=== PATIENT | female | born 1945 | race Caucasian/White ===

== ENCOUNTER 2018-10-04 08:22 | Inpatient (IN) ==
[2018-10-04] MEDS ORDERED: SOLU-MEDROL IV ONE (08:37)
[2018-10-04] MEDS ORDERED: DILAUDID IV ONE (08:39)
[2018-10-04] MEDS ORDERED: ZOFRAN IV ONE (08:39)
[2018-10-04 09:06] LABS: BASO# 0.01 X1000 (0.0-0.2); BASO% 0.1 % (0.0-0.8); EOS# 0.21 X1000 (0.0-0.7); HEMOGLOBIN 11.5 g/dL (12.0-16.0); IMM GRAN# 0.04 X1000 (0.0-0.04); IMM GRAN% 0.4 % (0.0-0.5); LYMPH% 3.8 % (20.5-51.1); MCH 35.9 PG (27-31); MCHC 31.9 g/dL (33-37); MCV 112.5 FL (81-99); MONO# 0.63 X1000 (0.11-0.59); MPV 8.9 FL (7.4-10.4); NEUT# 9.26 X1000 (1.4-6.5); NEUT% 87.7 % (42.2-75.2); PLT 279 X1000 (130-400); RDW 16.2 % (11.5-14.5); WBC 10.55 X1000 (4.8-10.8)
[2018-10-04] MEDS ORDERED: XOPENEX NEB INH ONE ×2 (09:17→15:15)
--- NOTE | 2018-10-04 09:18 | Diag Imaging Result Doc PS360 ---
CHEST-2 VIEWS - 10/04/2018 INDICATION: sob COMPARISON: 07/10/2018 FINDINGS: There is cardiomegaly. There is ill-defined infiltrate throughout the right lung worse in the right lung base. Aside from some chronic linear scarring in the lingula the left lung is fairly clear. No pneumothorax or significant pleural effusion. IMPRESSION: Cardiomegaly. Indeterminate infiltrate throughout the right lung and lung base. Consistent with pneumonia or pulmonary edema. Electronically signed by Jones Segundo 10/04/2018 9:16 AM
[2018-10-04 09:24] LABS: AGAP 7; BUN 15 mg/dL (8-22); CALCIUM 8.9 mg/dL (8.8-10.2); CHLORIDE 98 mmol/L (98-107); COSMO 278; CREATININE 0.9 mg/dL (0.5-0.9); ESTIMATED GFR > 60; GLUCOSE 131 mg/dL (70-104); POTASSIUM 4.7 mmol/L (3.5-5.1); SODIUM 138 mmol/L (136-145); TCO2 33 mmol/L (25-35)
--- NOTE | 2018-10-04 09:27 | PROVIDER DOCUMENTATION ---
HPI-Respiratory General - General Chief Complaint: Shortness of Breath Stated Complaint: SOB, Lung Cancer, exp wheezes Time Seen by Provider: 10/04/18 09:10 Source: patient, family Allergies/Adverse Reactions: Patient Allergies Allergy/AdvReac Type Severity Reaction Status Date / Time naproxen Allergy Intermediate NAUSEA/VOMI Verified 11/01/12 10:08 TING Home Medications: Home Medication List Medication Instructions Recorded Confirmed Last Taken Type Furosemide [Lasix] 40 mg PO DAILY 11/01/12 05/29/17 05/28/17 History 40 Oxycodone/APAP 5 mg/325 mg 1 each PO Q4H PRN PRN #15 tablet 11/01/12 05/29/17 05/28/17 05:30 Rx [Percocet-5] 1 Fluticasone/Salmet 250/50 INH 1 puff INH RTBID 07/06/15 05/29/17 07/03/15 History [Advair 250/50 Diskus] Acetaminophen [Tylenol] 650 mg PO Q6H PRN PRN #0 tablet 07/13/15 05/29/17 05/28/17 19:30 Rx 650 Albuterol 2.5MG/Ipratrop 0.5MG 3 ml INH Q4H PRN PRN #0 neb 07/13/15 05/29/17 05/29/17 05:30 Rx [Duoneb (A & A)] 3 Amitriptyline [Elavil] 50 mg PO QPM@1800 #0 tablet 07/13/15 05/29/17 05/28/17 18:00 Rx 50 Benzonatate [Tessalon] 200 mg PO Q6H PRN PRN #0 capsule 07/13/15 05/29/17 Unknown Rx Lorazepam [Ativan] 1 mg PO BID #0 tablet 07/13/15 05/29/17 05/29/17 05:30 Rx 1 Nicotine Patch [Nicoderm Patch] 21 mg TD DAILY #0 patch.[id number] 07/13/15 05/29/17 05/28/17 05:30 Rx 21 Prednisone 10 mg PO DAILY #7 tablet 07/13/15 05/29/17 05/28/17 05:30 Rx 10 Cyanocobalamin (Vitamin B-12) 1 tab PO DAILY 05/29/17 05/29/17 05/28/17 05:30 History [B-12] 1 Folic Acid 1 tab PO DAILY 05/29/17 05/29/17 05/28/17 05:30 History 1 Potassium 1 tab PO DAILY 05/29/17 05/29/17 05/28/17 05:30 History 1 Sertraline HCl [Zoloft] 1 tab PO DAILY 05/29/17 05/29/17 05/28/17 05:30 History 1 Albuterol 2.5MG/Ipratrop 0.5MG 3 ml INH Q4-6H PRN PRN neb 06/01/17 Unknown Rx [Duoneb (A & A)] Albuterol 2.5MG/Ipratrop 0.5MG 3 ml INH Q4H PRN PRN neb 06/01/17 Unknown Rx [Duoneb (A & A)] Amitriptyline [Elavil] 50 mg PO QPM@1800 tablet 06/01/17 Unknown Rx Benzonatate [Tessalon] 200 mg PO Q6H PRN PRN capsule 06/01/17 Unknown Rx Cyanocobalamin [Vitamin B-12] 1,000 microgm PO DAILY tablet 06/01/17 Unknown Rx Docusate Sodium [Colace] 100 mg PO DAILY capsule 06/01/17 Unknown Rx Folic Acid 1 mg PO DAILY tablet 06/01/17 Unknown Rx Furosemide [Lasix] 40 mg PO DAILY tablet 06/01/17 Unknown Rx Levofloxacin [Levaquin] 750 mg PO DAILY tablet 06/01/17 Unknown Rx Lorazepam [Ativan] 1 mg PO TID tablet 06/01/17 Unknown Rx Nicotine Patch [Nicoderm Patch] 21 mg TD DAILY patch.td24 06/01/17 Unknown Rx [place]-3 Fatty Acids [Fish Oil 1,000 mg PO DAILY capsule 06/01/17 Unknown Rx Concentrate] Polyethylene Glycol 3350 [Miralax] 17 gm PO DAILY powder, packet 06/01/17 Unknown Rx Potassium [Potassium] 1 tab PO DAILY 06/01/17 Unknown Rx Prednisone 10 mg PO DAILY tablet 06/01/17 Unknown Rx Sertraline [Zoloft] 100 mg PO DAILY tablet 06/01/17 Unknown Rx - History of Present Illness-Resp Nature of Presenting Problem: Patient is a 73yo F who presents w/ c/o SOB and wheezing. Patient has COPD and has been having more difficulty breathing for the past 2 weeks. Family reports that patient has R lung cancer for which she sees Dr. Kelley. Also report she has been "battling pneumonia" since June and patient has refused to be admitted for pnuemonia and COPD exacerbation. Family reports she has been taking an antibiotic every other week since June and been on oral steroids. Patient on 3L NC at home. Family reports that last night around 0230, patient was in severe pain in her RUQ from her reported enlarged bile duct and was having more difficulty breathing, so she agreed to be taken to the ED. Also report that patient has been having black stools and was told by a physician in [place] that she was anemic. Quality of Pain: reports: sharp Severity in ED: reports: moderate Onset/Duration: reports: 4-6 hours ago Timing: reports: still present Context: reports: recent URI Exposure: reports: unknown cause Cough Quality/Degree: reports: mild Episode Frequency: frequent episodes Current Respiratory Medication Therapy: Initiated see nurses note, Initiated albuterol/atrovent inhale, Initiated other oral steroid Modifying Factors: improves with: nothing Associated Symptoms: reports: chest pain/soreness, cough, heart racing, hurts to breathe, shortness of breath, wheezing. denies: fever/chills Similar Symptoms Previously?: Yes Recently seen or treated by another doctor?: No Review of Systems - Adult - REVIEW OF SYSTEMS - ADULT ROS:: ROS per family Constitutional: denies: chills, fever Eyes: reports: no symptoms reported Ears, Nose, Mouth & Throat: reports: no symptoms reported Cardiovascular: reports: no symptoms reported Respiratory: reports: cough, dyspnea on exertion, shortness of breath, wheezing Gastrointestinal: reports: abdominal pain (RUQ), other ("dark stools") Genitourinary: reports: no symptoms reported Musculoskeletal: reports: no symptoms reported Integumentary: reports: no symptoms reported Neurological: reports: no symptoms reported Psychiatric: reports: no symptoms reported Endocrine: reports: no symptoms reported Hematologic/Lymphatic: reports: low blood count All Other Systems: Reviewed and Negative Past History - Adult - PAST MEDICAL HISTORY-ADULT Review of Records: reports: Nursing Assessment Review, Medications Reviewed, Social history reviewed & non-contributory. Cardiovascular: reports: other (Cardiomegaly) Respiratory: reports: COPD, cancer Gastrointestinal: reports: other (Enlarged bile duct) - IMMUNIZATION STATUS Childhood Immunizations: See Nurse Assessment Flu Vaccine: See Nurse Assessment - FAMILY HISTORY Family History: reviewed, not pertinent - SOCIAL HISTORY Smoking: cigarettes Provider spent 3-5 mins advising pt. on dangers of tobacco.: Discussed manners to quit use, and f/u contacts for add'l counseling. Physical Exam-General - PHYSICAL EXAM-ADULT Initial Vital Signs Reviewed: Yes - CONSTITUTIONAL General Appearance: appears well, alert, moderate distress - HEAD, EARS, NOSE, MOUTH & THROAT HENMT: normocephalic/atraumatic, moist mucous membranes - RESPIRATORY Respiratory: wheezing (Expiratory wheeze all lung lopez), pain on inspiration - CARDIOVASCULAR Cardiovascular: no gallop, no murmur, tachycardia - SKIN Integumentary: normal color, normal turgor, warm/dry - NEUROLOGIC Neurologic: grossly normal - PSYCHIATRIC Psych/Mental Status: normal mood/affect, normal thought content, normal thought process, oriented x 3 - HEART Score HEART Score: History: Slightly Suspicious HEART Score: ECG: Non-Specific Repolarization Disturbance/LBBB/PM HEART Score: Age: > or = 65 Years HEART Score: Risk Factors for Atherosclerotic Disease: > or = 3 Risk Factors or History of Atherosclerotic Disease HEART Score: Troponin: < or = Normal Limit Total HEART Score:: 5 Progress - PLAN OF CARE/RESULTS Progress/Plan/Lab Results: Vital Signs - 8 hr 10/04/18 08:28 10/04/18 08:29 10/04/18 08:30 Temperature 98.2 F Pulse Rate 136 H 126 H 127 H Respiratory Rate 24 23 23 Blood Pressure 133/84 O2 Sat by Pulse Oximetry 92 L 94 L 10/04/18 08:40 10/04/18 08:50 10/04/18 09:08 Temperature Pulse Rate 123 H 115 H 122 H Respiratory Rate 22 18 21 Blood Pressure O2 Sat by Pulse Oximetry 94 L 93 L 94 L 10/04/18 09:09 10/04/18 09:10 10/04/18 09:20 Temperature Pulse Rate 120 H 120 H 116 H Respiratory Rate 16 18 16 Blood Pressure 119/85 O2 Sat by Pulse Oximetry 92 L 94 L 92 L 10/04/18 09:30 10/04/18 09:32 10/04/18 09:40 Temperature Pulse Rate 118 H 121 H 117 H Respiratory Rate 15 17 18 Blood Pressure 112/76 O2 Sat by Pulse Oximetry 94 L 95 94 L 10/04/18 09:50 10/04/18 10:00 10/04/18 10:02 Temperature Pulse Rate 114 H 116 H 115 H Respiratory Rate 16 19 16 Blood Pressure 108/73 O2 Sat by Pulse Oximetry 93 L 94 L 93 L 10/04/18 10:10 10/04/18 10:50 Temperature Pulse Rate 115 H 94 H Respiratory Rate 21 16 Blood Pressure O2 Sat by Pulse Oximetry 95 94 L Laboratory Results - last 24 hr 10/04/18 10/04/18 10/04/18 08:35 08:35 08:35 WBC 10.55 RBC 3.20 L Hgb 11.5 L Hct 36.0 L MCV 112.5 H MCH 35.9 H MCHC 31.9 L RDW Std Deviation 16.2 H Plt Count 279 MPV 8.9 Immature Gran % (Auto) 0.4 Neut % (Auto) 87.7 H Lymph % (Auto) 3.8 L [place] % (Auto) 6.0 Eos % (Auto) 2.0 Baso % (Auto) 0.1 Immature Gran # (Auto) 0.04 Neut # (Auto) 9.26 H Lymph # (Auto) 0.40 L [place] # (Auto) 0.63 H Eos # (Auto) 0.21 Baso # (Auto) 0.01 Segmented Neutrophils 90 H Band Neutrophils 2 H Lymphocytes 2 L Monocytes 4 Eosinophils 2 Specimen Type Sample Site pH pCO2 pO2 HCO3 Base Excess Oxyhemoglobin ABG O2 Sat (Calculated) ABG O2 Saturation ABG Carboxyhemoglobin ABG Methemoglobin Valdemar Test A-a O2 Difference Total Hemoglobin Lactate Liter Flow Blood Gas Modality FiO2 % Sodium 138 Potassium 4.7 Chloride 98 Carbon Dioxide 33 Anion Gap 7 BUN 15 Creatinine 0.9 Estimated GFR/1.73 m2 > 60 BUN/Creatinine Ratio 17 Glucose 131 H Calculated Osmolality 278 Calcium 8.9 Troponin T < 0.010 Urine Source Urine Color Urine Turbidity Urine pH Ur Specific [place] Urine Protein Ur Glucose (Stick) Ur Ketones (Stick) Urine Blood Urine Nitrite Urine Bilirubin Urobilinogen Dipstick Urine Leukocytes Urine WBC (Auto) Urine RBC (Auto) U Epithel Cells (Auto) Urine Bacteria (Auto) 10/04/18 10/04/18 10:43 10:45 WBC RBC Hgb Hct MCV MCH MCHC RDW Std Deviation Plt Count MPV Immature Gran % (Auto) Neut % (Auto) Lymph % (Auto) [place] % (Auto) Eos % (Auto) Baso % (Auto) Immature Gran # (Auto) Neut # (Auto) Lymph # (Auto) [place] # (Auto) Eos # (Auto) Baso # (Auto) Segmented Neutrophils Band Neutrophils Lymphocytes Monocytes Eosinophils Specimen Type ARTERIAL Sample Site R BRACHIAL pH 7.39 pCO2 56 H* pO2 70 HCO3 30.7 H Base Excess 7.5 H Oxyhemoglobin 94.5 L ABG O2 Sat (Calculated) 14.8 L ABG O2 Saturation 97.7 ABG Carboxyhemoglobin 2.70 H ABG Methemoglobin 0.6 Valdemar Test NO A-a O2 Difference 88.0 Total Hemoglobin 11.1 L Lactate 1.10 Liter Flow 3.0 Blood Gas Modality [place] FiO2 % 32.0 Sodium Potassium Chloride Carbon Dioxide Anion Gap BUN Creatinine Estimated GFR/1.73 m2 BUN/Creatinine Ratio Glucose Calculated Osmolality Calcium Troponin T Urine Source CATH Urine Color YELLOW Urine Turbidity CLEAR Urine pH 7.0 Ur Specific [place] 1.006 Urine Protein NEGATIVE Ur Glucose (Stick) NEGATIVE Ur Ketones (Stick) NEGATIVE Urine Blood SMALL A Urine Nitrite NEGATIVE Urine Bilirubin NEGATIVE Urobilinogen Dipstick NORMAL Urine Leukocytes NEGATIVE Urine WBC (Auto) <10 Urine RBC (Auto) 10-20 A U Epithel Cells (Auto) <10 Urine Bacteria (Auto) NEGATIVE Orders Category Date Time Status Straight Catheterization ORDERED Care 10/04/18 10:34 Active CHEST-2 VIEWS [RAD] Stat Exams 10/04/18 08:37 Completed RIBS ONLY RIGHT [RAD] Stat Exams 10/04/18 08:39 Completed ABG [RESP] Routine Lab 10/04/18 10:45 Completed BASIC METABOLIC PANEL [CHEM] Stat Lab 10/04/18 08:35 Completed BLOOD CULTURE [BLDCUL] Stat Lab 10/04/18 10:26 Results CBC WITH DIFF [HEME] Stat Lab 10/04/18 08:35 Completed TROPONIN T Stat Lab 10/04/18 08:35 Completed UA [URINALYSIS W/POSS RFLX CULT] [URINALYSIS] Stat Lab 10/04/18 10:43 Completed CefTRIAXONE [Rocephin] 2 gm Med 10/04/18 09:35 Discontinued 0.9% Sodium Chloride Inj [Ns] 50 ml IV NOW Hydromorphone [Dilaudid] Med 10/04/18 08:39 Discontinued 0.5 mg IV NOW ONE Levalbuterol Neb [Xopenex Neb] Med 10/04/18 09:17 Discontinued 1.25 mg INH NOW ONE Methylprednisolone Sod Succ [Solu-Medrol] Med 10/04/18 08:37 Discontinued 125 mg IV NOW ONE Ondansetron [Zofran] Med 10/04/18 08:39 Discontinued 4 mg IV NOW ONE Sodium Chloride 0.9% Neb [Ns Neb] Med 10/04/18 09:30 Active 5 ml INH DIRECTED Aerosol Treatments Routine Oth 10/04/18 09:17 Completed Aerosol Treatments Stat Oth 10/04/18 09:17 Completed EKG [EKG] Stat Ther 10/04/18 08:50 Draft Result Diagrams: 10/04/18 08:35 10/04/18 08:35 - REASSESSMENT Reassessment #1 Time Reassessed: 11:00 Status: unchanged - XRAY 1 XRAY: Bilateral XRAY Study: Chest Impression: See EMR Report ([facility] [address] , [address], [place] [address] Department of Imaging Patient: LIBERTY ROJAS Date: 10/04/18MR#: [id number] : 1945DM Status: PRE ERAcct#: [id number] Age/Sex: 73/FRoom/Bed: Loc: ED Ordering Physician: Orlin Daniel MD Family Physician: Merrick Becerril MD Reason for Procedure: sob ___ Signed CHEST-2 VIEWS - 10/04/2018 INDICATION: sob COMPARISON: 07/10/2018 FINDINGS: There is cardiomegaly. There is ill-defined infiltrate throughout the right lung worse in the right lung base. Aside from some chronic linear scarring in the lingula the left lung is fairly clear. No pneumothorax or significant pleural effusion. IMPRESSION: Cardiomegaly. Indeterminate infiltrate throughout the right lung and lung base. Consistent with pneumonia or pulmonary edema. Electronically signed by Jones Segundo 10/04/2018 9:16 AM 10/04/18 0916 Interpreting Physician: Jones Segundo MD Dictated Date/Time: 10/04/18 09 cc: Orlin Daniel MD; Merrick Becerril MD) 2 XRAY: Right XRAY Study: Ribs Impression: See EMR Report ([facility] [address] , [address], [place] [address] Department of Imaging Patient: BRYAN ROJASADM Date: 10/04/18MR#: [id number] : 1945DM Status: PRE ERAcct#: [id number] Age/Sex: 73/FRoom/Bed: Loc: ED Ordering Physician: Orlin Daniel MD Family Physician: Merrick Becerril MD Reason for Procedure: back pain Signed RIBS ONLY RIGHT - 10/04/2018 INDICATION: back pain TECHNIQUE: Two views COMPARISON: 07/10/2018 FINDINGS: The right-sided ribs are intact and normally mineralized. IMPRESSION: Negative exam. Electronically signed by Jones Segundo 10/04/2018 9:24 AM 10/04/18 0924 Interpreting Physician: Jones Segundo MD Dictated Date/Time: 10/04/18922 cc: Orlin Daniel MD; Merrick Becerril MD) - CONSULTS/PCP/HOSPITALIST Notification #1 *Consult/PCP/Hospitalist*: MD Jerrica Time Discussed: 11:25 Reason/Comments: SOB, Pneumonia, COPD Consult Disposition: Admit Departure - Departure Date of Disposition Decision: 10/04/18 Time of Disposition Decision: 11:25 DIAGNOSIS: SOB (shortness of breath) Pneumonia Qualifiers: Pneumonia type: due to unspecified organism Laterality: right Lung location: unspecified part of lung Qualified Code(s): J18.9 - Pneumonia, unspecified organism COPD (chronic obstructive pulmonary disease) Qualifiers: COPD type: unspecified COPD Qualified Code(s): J44.9 - Chronic obstructive pulmonary disease, unspecified Anemia Qualifiers: Anemia type: unspecified type Qualified Code(s): D64.9 - Anemia, unspecified Disposition: ADMITTED INPATIENT 09 Certified Medical Emergency: Emergent Condition: Fair Referrals and Follow-Ups: Merrick Becerril MD [Primary Care Provider] - - Critical Care Note This patient required my direct & personal management of CC.: No Total Time (mins): 36 Critical Care Statement: This patient required my direct personal management to treat or rule out processes, the absence of which, could potentiallly result in sudden, clinically significant life or limb threatening deterioration. Attestation - Physician/ DENISE Attestation Patient care was provided by Advanced Practice Provider:: Yes Advanced Practice Provider:: Yesika Delgadillo Advanced Practice Provider documentation review:: The Mid-level provider documentation, treatment plan and medical decision making was reviewed by the physician who agrees with all treatment and medical decision making by the P. The physician spent face to face time with patient:: No Advanced Practice Provider documentation review:: Supervising physician onsite and consulted in the evaluation and care of this patient. The physician did not have a face to face encounter with the patient.
[2018-10-04] MEDS ORDERED: NS NEB INH SCH ×2 (09:30→13:00)
[2018-10-04] MEDS ORDERED: ROCEPHIN 2 GM in NS 50 ML IV ONE (09:35)
[2018-10-04 09:44] LABS: BANDS 2 % (0-1); EOS 2 % (1-10); LYMPHS 2 % (21-51); MONO 4 % (1-9); SEGS 90 % (42-75)
--- NOTE | 2018-10-04 10:32 | EKG Report ---
Test Performed on : 10/04/2018 09:11:50 AM Test Reason : sob Blood Pressure : / mmHG Vent. Rate : 118 BPM Atrial Rate : 118 BPM P-R Int : 190 ms QRS Dur : 072 ms QT Int : 300 ms P-R-T Axes : 058 036 061 degrees QTc Int : 420 ms Sinus tachycardia. Marked ST abnormality, possible lateral subendocardial injury Abnormal ECG When compared with ECG of 30-MAY-2017 06:42, ST elevation now present in Inferior leads Unconfirmed Result
--- NOTE | 2018-10-04 10:35 | ED EKG INTERP ---
This chart was entered by Dipti Blancas Scribe, acting as scribe for Orlin Daniel MD. EKG Interpretation - EKG Time of EKG reading by physician:: 09:11 EKG Read and Signed by:: Orlin Daniel EKG Interpretation (*Must complete 3 of following elements*): Abnormal Rate: 118 Rhythm: sinus tachycardia [place]: normal QRS: normal [place] Interval: normal ST Wave: normal Comments: marked st abnormality, poss l;ateral subendocardial injury Attestation - Physician/ DENISE Attestation Patient care was provided by Advanced Practice Provider:: Yes Advanced Practice Provider documentation review:: The Mid-level provider documentation, treatment plan and medical decision making was reviewed by the physician who agrees with all treatment and medical decision making by the MLP. The physician spent face to face time with patient:: No Advanced Practice Provider documentation review:: Supervising physician onsite and consulted in the evaluation and care of this patient. The physician did not have a face to face encounter with the patient. This chart was documented by the indicated scribe, (Dipti Blancas Scribe) and accurately reflects the services I performed and decisions made by me, Orlin Daniel MD, as attested by the provider's signature.
[2018-10-04 10:51] LABS: URINE SOURCE CATH
[2018-10-04 10:55] LABS: ALLEN TEST NO; BE 7.5 mmoll (-3.0-3.0); BLOOD TYPE ARTERIAL; HCO3-(ACT) 30.7 mmoll (20.0-26.0); METHB 0.6 % (0.0-1.5); O2(CT) 14.8 mL/dL (15.0-23.0); O2HB 94.5 % (95.0-99.0); PO2(98.6) 70 mmHg (60-100); SAMPLE BLOOD; SAO2 97.7 % (95.0-100.0); THB 11.1 g/dL (11.5-17.4); pH(98.6) 7.39 (7.35-7.45)
[2018-10-04 10:57] LABS: MODALITY CANNULA; PCO2(98.6) 56 mmHg (35-45)
[2018-10-04 11:04] LABS: BILIRUBIN URINE NEGATIVE (NEGATIVE); BLOOD URINE SMALL (NEGATIVE); COLOR YELLOW; GLUCOSE URINE NEGATIVE (NEGATIVE); KETONE URINE NEGATIVE (NEGATIVE); LEUKOCYTES URINE NEGATIVE (NEGATIVE); NITRITE URINE NEGATIVE (NEGATIVE); PROTEIN URINE NEGATIVE (NEGATIVE); SP GRAVITY URINE 1.006; TURBIDITY URINE CLEAR (CLEAR); UROBILINOGEN URINE NORMAL (NORMAL)
[2018-10-04 11:12] LABS: UR EPITHELIAL CELLS <10 /HPF (<10); URINE BACTERIA NEGATIVE /HPF; URINE WBC <10 /HPF (<10)
[2018-10-04] MEDS ORDERED: NICODERM PATCH TD ONE (12:05)
[2018-10-04] MEDS ORDERED: PERCOCET-10 PO PRN (12:41)
[2018-10-04] MEDS ORDERED: ATIVAN PO SCH (13:00)
[2018-10-04] MEDS ORDERED: ZITHROMAX 500 MG/NS 500 MG/250 ML IVPB IV SCH ×2 (13:15→15:30)
[2018-10-04] MEDS ORDERED: TESSALON PO PRN ×2 (13:35→15:25)
--- NOTE | 2018-10-04 13:53 | HISTORY AND PHYSICAL ---
HISTORY OF PRESENT ILLNESS: Ms. Jones is a 73-year-old white female with lung carcinoma, COPD and rheumatoid arthritis, who was admitted with severe shortness of breath, cough with expectoration. She has acute exacerbation of COPD with possible pneumonia on the right side. Ms. Jones came to the emergency room today. Recently she was found to have metastatic lung cancer on the right side. She had history of breast cancer and mastectomy many years ago. She recently has been followed by Dr. Jimenez, as well as Dr. Kelley and gone through chemotherapy and radiation. She is somewhat short of breath now. We will be admitting her to the hospital. The details of personal, past, and family history reveal history of mastectomy on the right side. The patient also had a hysterectomy, as well as cholecystectomy in the past. MEDICATIONS: Include Percocet, Ativan, DuoNeb, as well as folic acid. She also takes methotrexate once a week. REVIEW OF SYSTEMS: Other than shortness of breath, cough with expectoration, is noncontributory. PHYSICAL EXAMINATION: GENERAL: The patient is alert, oriented. VITAL SIGNS: Temperature normal, pulse 119 per minute, respiratory rate 18 per minute, blood pressure 125/69, O2 saturation was 95%. HEENT: Head normocephalic. Pupils PERRLA. Fundus examination not done. NECK: Supple. JVP normal. ENT examination unremarkable. There is no evidence of lymphadenopathy, thyroid enlargement, cyanosis or clubbing. She is anemic with some pallor of skin and mucous membrane. There is some pedal edema. BREASTS: She has right mastectomy. Left breast normal. LUNGS: On auscultation reveal bilateral expiratory wheezing with right basal rales. PMI in the normal position. HEART: Sounds normal. Heart rate is around 115. No murmur, gallop or rub noted. ABDOMEN: Nondistended. Hernial orifices normal, revealed the scars from previous surgery. No guarding, rigidity, free fluid, masses, or organomegaly. Bowel sounds normal. RECTAL: Exam deferred. SET RIDER: Higher functions normal. Cranial nerves normal. Motor and sensory system examination unremarkable. Deep tendon reflexes normal. Plantars downgoing. Skull and spine examination normal for age. No cerebellar signs or signs of meningeal irritation. LOCOMOTOR EXAM: Reveals presence of severe rheumatoid arthritis affecting both hands. She has soft tissue nodules. CLINICAL IMPRESSION: 1. Chronic obstructive pulmonary disease with acute exacerbation, possible pneumonia on the right side. She has metastatic lung cancer on the right side also. 2. History of severe rheumatoid arthritis on methotrexate therapy. 3. Severe anxiety state. PLAN: Plan to start IV antibiotics, especially Rocephin and azithromycin, at the present time. cc: Merrick Becerril MD
[2018-10-04] MEDS ORDERED: SOLU-MEDROL IV SCH (14:30)
[2018-10-04] MEDS ORDERED: TESSALON PO ONE (15:25)
[2018-10-04] MEDS ORDERED: XOPENEX NEB INH SCH (15:30)
[2018-10-04] MEDS ORDERED: DUONEB (A & A) INH SCH (15:30)
[2018-10-04] MEDS ORDERED: ZOFRAN IV PRN (15:34)
[2018-10-04] MEDS ORDERED: ROCEPHIN 1 GM in NS 50 ML IV SCH (15:45)
[2018-10-04] MEDS: PERCOCET-10 PO PRN ×2 (16:19→23:29)
[2018-10-04] MEDS: NICODERM PATCH TD SCH (17:14)
[2018-10-04] MEDS: ATIVAN PO SCH (17:23)
[2018-10-04] MEDS: ELAVIL PO SCH (17:23)
[2018-10-04] MEDS: SOLU-MEDROL IV SCH ×2 (17:23→20:43)
[2018-10-04] MEDS: XOPENEX NEB INH PRN ×2 (19:20→23:00)
[2018-10-04] MEDS: ADVAIR 250/50 DISKUS INH SCH (19:21)
[2018-10-05] MEDS: XOPENEX NEB INH PRN ×5 (03:30→18:35)
[2018-10-05] MEDS: SOLU-MEDROL IV SCH ×5 (03:59→22:08)
[2018-10-05] MEDS ORDERED: VANCOMYCIN IV PER PHARMACY MISC SCH (07:00)
[2018-10-05] MEDS: PERCOCET-10 PO PRN ×4 (08:01→22:06)
[2018-10-05] MEDS: ADVAIR 250/50 DISKUS INH SCH ×2 (08:10→16:00)
[2018-10-05] MEDS: NICODERM PATCH TD SCH (08:22)
[2018-10-05] MEDS: COLACE PO SCH (08:24)
[2018-10-05] MEDS: LASIX PO SCH (08:25)
[2018-10-05] MEDS: ATIVAN PO SCH ×3 (08:26→18:13)
[2018-10-05] MEDS: VITAMIN B-12 PO SCH (08:27)
[2018-10-05] MEDS: FOLIC ACID PO SCH (08:36)
[2018-10-05] MEDS ORDERED: CYANOCOBALAMIN PO SCH (09:00)
[2018-10-05] MEDS ORDERED: VANCOMYCIN 1,850 MG in NS 500 ML IV ONE (09:00)
--- NOTE | 2018-10-05 09:36 | HEMO/ONC CONSULTATION ---
DATE: 10/05/2018 CHIEF COMPLAINT: We are consulted for further evaluation and management of patient's history of right lower lobe lung cancer and right breast cancer. HISTORY OF PRESENT ILLNESS: Ms. Jones presented to the emergency department on 10/04/2018 complaining of shortness of breath, wheezing. The patient does have a history of COPD, but has been complaining of increased difficulty breathing for the past 2 weeks. The patient says that she has been battling this pneumonia since June and has refused to be admitted for pneumonia and COPD exacerbation at this time. The patient also complains of increased amounts of black stools recently and some right upper quadrant abdominal pain that continues to get worse. The patient was admitted at that time for further evaluation and treatment. Ms. Jones is well known to us in clinic where she follows up for her T1a infiltrating right breast cancer status post mastectomy in March 2007. The patient also follows up for her T1 N0 M0 right lower lobe lung cancer status post radiation as of June 2017. 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 The patient's last PET scan on May 21, 2008 showed an increase in right lymph node as well as a right axillary lymph node increased in size and was referred to Dr. Jimenez for possible radiation and radiosensitizing chemotherapy. The patient has not been back in the office since June. PAST MEDICAL HISTORY: COPD, right breast cancer, right lung cancer. PAST SURGICAL HISTORY: Hysterectomy, cholecystectomy, mastectomy right side, bilateral cataract surgery. SOCIAL HISTORY: Smoker. Denies any alcohol, illicit drug use. FAMILY HISTORY: Noncontributory. ALLERGIES: Naproxen. HOME MEDICATIONS: DuoNeb, Elavil, aspirin enteric-coated, vitamin B12, Lexapro, Pepcid, Trelegy Ellipta, folic acid, Lasix, Atrovent nebulizers, Ativan, methotrexate, nicotine patch, Percocet 5's, MiraLAX, potassium chloride and prednisone. REVIEW OF SYSTEMS: Negative other than HPI. PHYSICAL EXAM: Vital Signs: Temperature 97.6 degrees, heart rate 104, respiratory rate 18, blood pressure 150/68, saturating 97% on nasal cannula. General: Patient is awake, lying in bed, no acute distress noted. Neck: Supple. Trachea in the midline. No JVD. No palpable lymphadenopathy. Lungs: Bilateral breath sounds with wheezing and rhonchi bilaterally. Cardiovascular: S1, S2. Increased rate and rhythm. Abdomen: Soft, nontender, nondistended. Bowel sounds present in all 4 quadrants. Skin: Warm, dry, and intact. Neurologic: Alert and oriented x3. No focal deficits noted. LABORATORY DATA: White blood cell count is 10.55, hemoglobin 11.5, hematocrit 36.0, platelets are 279,000. Potassium 4.7, BUN 15, creatinine 0.9. ASSESSMENT AND PLAN: 1. Recurrent lung cancer, right lower lobe: The patient is status post radiation in 2017. The patient was supposed to be following up with Dr. Jimenez recently. At this time we will allow the patient to get over her COPD and pneumonia. We will monitor closely and make further recommendations. 2. COPD, acute exacerbation, possible pneumonia: Continue recommendations per primary team. 3. Severe rheumatoid arthritis: Continue recommendations per medical team. 4. Anxiety. Continue Ativan. Continue medication per primary team. 5. Supportive care. Continue to have patient get up as much as possible. The patient will continue exercise as instructed. 6. Plan of care discussed with Dr. Kelley. Dictated by BELTRAN Rosales for Celio Kelley MD cc: BELTRAN Rosales MD Amit V. Vora, MD MTDD
[2018-10-05] MEDS ORDERED: NS 1,000 ML ONE (10:28)
[2018-10-05] MEDS ORDERED: ROCEPHIN 1 GM in NS 50 ML IV SCH (11:00)
[2018-10-05] MEDS ORDERED: METHOTREXATE PO ONE (11:14)
--- NOTE | 2018-10-05 11:50 | PROGRESS NOTE ---
DATE: 10/05/2018 SUBJECTIVE: Ms. Jones is feeling slightly better. She has pain in the right lower quadrant of chest where she had pneumonia. We are going to start her on methotrexate. Overall condition is unchanged. We are going to check on her liver enzymes in the morning. She has some dilatation of the bile duct and was followed by Dr. Gonzalez. -7 cc: Merrick Becerril MD
[2018-10-05] MEDS: TESSALON PO PRN ×2 (13:20→22:07)
[2018-10-05] MEDS: TYLENOL PO PRN (13:20)
[2018-10-05] MEDS: ELAVIL PO SCH (18:14)
[2018-10-05] MEDS: ROCEPHIN 1 GM in NS 50 ML IV SCH (22:10)
[2018-10-05] MEDS: ZITHROMAX 500 MG/NS 500 MG/250 ML IVPB IV SCH (23:44)
[2018-10-06] MEDS ORDERED: NS 500 ML ONE (00:27)
[2018-10-06] MEDS: XOPENEX NEB INH PRN ×7 (00:34→20:58)
[2018-10-06] MEDS: SOLU-MEDROL IV SCH ×3 (02:56→18:41)
[2018-10-06] MEDS: ADVAIR 250/50 DISKUS INH SCH ×2 (07:45→19:35)
[2018-10-06] MEDS: PERCOCET-10 PO PRN ×4 (08:55→20:53)
[2018-10-06] MEDS ORDERED: VANCOMYCIN 1,450 MG in NS 250 ML IV SCH (09:00)
[2018-10-06] MEDS: NICODERM PATCH TD SCH (10:05)
[2018-10-06] MEDS: LASIX PO SCH (10:09)
[2018-10-06] MEDS: VITAMIN B-12 PO SCH (10:09)
[2018-10-06] MEDS: COLACE PO SCH (10:09)
[2018-10-06] MEDS: FOLIC ACID PO SCH (10:10)
[2018-10-06] MEDS: VANCOMYCIN 1,250 MG in NS 250 ML IV SCH (10:10)
[2018-10-06] MEDS: ATIVAN PO SCH ×3 (10:20→18:40)
--- NOTE | 2018-10-06 12:46 | PROGRESS NOTE ---
DATE: 10/06/2018 Ms. Jones is feeling somewhat better. She had to use some BiPAP last night but she is alert now. She is recovering from pneumonia on the right side. Her sputum culture grew coagulase-negative. Her blood culture, one bottle, grew coagulase-negative staph which she is already on IV vancomycin. Vital signs are stable. Lung sounds are somewhat better. We are going to continue with the current management. We are gradually reducing the steroid. -4 cc: Merrick Becerril MD
--- NOTE | 2018-10-06 14:10 | HEMO/ONC PROGRESS NOTE ---
DATE: 10/06/2018 SUBJECTIVE: The patient continues to have increased shortness of breath. The patient continues to have increased amounts of coughing. Shortness of breath is worse with any exertion. OBJECTIVE: Vital Signs: Temperature 97.9 degrees, heart rate 108, respiratory rate 20, blood pressure is 132/62, saturation 98% on Venturi mask. General: Patient is awake, lying in bed, no acute distress noted. HEENT: Anicteric. PERRLA. Mucous membranes dry. Cardiovascular: S1, S2. Increased rate and rhythm. Lungs: Bilateral breath sounds with wheezing and rhonchi bilaterally. Abdomen: Soft, nontender. Bowel sounds present in all 4 quadrants. Neurologic: Alert and oriented x3. No focal deficits noted. LABORATORY DATA: No laboratory data at this time. ASSESSMENT AND PLAN: 1. Recurrent lung cancer, right lower lobe: Continue to monitor closely at this time. 2. Chronic obstructive pulmonary disease with acute exacerbation, possible pneumonia: Continue recommendations per primary team. Continue antibiotics as ordered. 3. Anxiety: Continue management per medical team. 4. Supportive care: Continue protein shakes. Dictated by BELTRAN Rosales for Celio Kelley MD cc: BELTRAN Rosales MD Amit V. Vora, MD [facility]
[2018-10-06] MEDS: TYLENOL PO PRN (14:56)
[2018-10-06] MEDS: ELAVIL PO SCH (18:40)
[2018-10-06] MEDS: ROCEPHIN 1 GM in NS 50 ML IV SCH ×2 (19:49→22:42)
[2018-10-06] MEDS: ZITHROMAX 500 MG/NS 500 MG/250 ML IVPB IV SCH (22:00)
[2018-10-07] MEDS: SOLU-MEDROL IV SCH ×3 (01:21→17:22)
[2018-10-07] MEDS: PERCOCET-10 PO PRN ×4 (06:21→18:50)
[2018-10-07] MEDS: XOPENEX NEB INH PRN ×4 (08:09→22:13)
[2018-10-07] MEDS: ADVAIR 250/50 DISKUS INH SCH ×2 (08:10→19:00)
[2018-10-07] MEDS: NICODERM PATCH TD SCH (08:30)
[2018-10-07] MEDS: VITAMIN B-12 PO SCH (08:35)
[2018-10-07] MEDS: LASIX PO SCH (08:35)
[2018-10-07] MEDS: COLACE PO SCH (08:35)
[2018-10-07] MEDS: FOLIC ACID PO SCH (08:36)
[2018-10-07] MEDS: ATIVAN PO SCH ×3 (08:36→22:00)
[2018-10-07] MEDS: VANCOMYCIN 1,250 MG in NS 250 ML IV SCH (11:18)
--- NOTE | 2018-10-07 12:20 | PROGRESS NOTE ---
DATE: 10/07/2018 Ms. Jones is still having some expiratory wheezing. We are cutting down on her steroids. She has pneumonia. We are going to repeat the chest x-ray in the morning, as well as blood gases. Overall condition is otherwise unchanged. She has metastatic lung cancer. -1 cc: Merrick Becerril MD
[2018-10-07 13:02] LABS: ALLEN TEST YES; BE 5.9 mmoll (-3.0-3.0); BLOOD TYPE ARTERIAL; HCO3-(ACT) 29.5 mmoll (20.0-26.0); METHB 0.9 % (0.0-1.5); O2HB 97.1 % (95.0-99.0); PO2(98.6) 142 mmHg (60-100); SAMPLE BLOOD; SAO2 99.8 % (95.0-100.0); THB 11.5 g/dL (11.5-17.4); pH(98.6) 7.39 (7.35-7.45)
[2018-10-07 13:08] LABS: PCO2(98.6) 53 mmHg (35-45)
[2018-10-07 16:38] LABS: MODALITY VENTIMASK
[2018-10-07] MEDS: ELAVIL PO SCH (18:51)
[2018-10-07] MEDS: ROCEPHIN 1 GM in NS 50 ML IV SCH (22:01)
[2018-10-07] MEDS: ZITHROMAX 500 MG/NS 500 MG/250 ML IVPB IV SCH (22:01)
[2018-10-08] MEDS: SOLU-MEDROL IV SCH ×4 (01:58→23:48)
[2018-10-08] MEDS: PERCOCET-10 PO PRN ×6 (02:38→22:50)
[2018-10-08] MEDS: TYLENOL PO PRN (05:32)
[2018-10-08 06:43] LABS: BASO# 0.02 X1000 (0.0-0.2); BASO% 0.2 % (0.0-0.8); HEMATOCRIT 31.4 % (37.0-47.0); HEMOGLOBIN 10.1 g/dL (12.0-16.0); LYMPH# 0.22 X1000 (1.2-3.4); MCH 36.1 PG (27-31); MCHC 32.2 g/dL (33-37); MCV 112.1 FL (81-99); MONO# 0.33 X1000 (0.11-0.59); MPV 8.8 FL (7.4-10.4); NEUT# 10.58 X1000 (1.4-6.5); NEUT% 94.8 % (42.2-75.2); PLT 291 X1000 (130-400); RDW 15.4 % (11.5-14.5); WBC 11.15 X1000 (4.8-10.8)
[2018-10-08 07:16] LABS: AGAP 14; BUN 20 mg/dL (8-22); CALCIUM 8.5 mg/dL (8.8-10.2); CHLORIDE 101 mmol/L (98-107); COSMO 282; CREATININE 0.8 mg/dL (0.5-0.9); ESTIMATED GFR > 60; GLUCOSE 124 mg/dL (70-104); POTASSIUM 5.2 mmol/L (3.5-5.1); SODIUM 139 mmol/L (136-145); TCO2 24 mmol/L (25-35)
[2018-10-08] MEDS: LASIX PO SCH (08:07)
[2018-10-08] MEDS: VITAMIN B-12 PO SCH (08:07)
[2018-10-08] MEDS: FOLIC ACID PO SCH (08:07)
[2018-10-08] MEDS: ATIVAN PO SCH ×2 (08:07→16:01)
[2018-10-08] MEDS: NICODERM PATCH TD SCH (08:07)
[2018-10-08] MEDS: COLACE PO SCH (08:08)
--- NOTE | 2018-10-08 08:14 | HEMO/ONC PROGRESS NOTE ---
DATE: 10/08/2018 SUBJECTIVE: Patient continues to have shortness of breath but improving. OBJECTIVE: Vitals: Temperature 99.0, heart rate 110, respiratory rate 20, blood pressure 137/73, sat 100% on Venturi mask. General: Patient is awake, lying in bed, no acute distress noted. HEENT: Anicteric. Pupils PERRLA. Mucous membranes dry. Cardiovascular: S1, S2. Increased rate and rhythm. Lungs: Bilateral breath sounds, wheezing bilaterally. Abdomen: Soft, nontender. Bowel sounds present in all 4 quadrants. Neurologic: Alert and oriented x3. No focal deficits noted. LABORATORY DATA: White blood cell count 11.15, hemoglobin 10.1, hematocrit of 31.4, platelets are 291. Potassium 5.2, BUN 20, creatinine 0.8. ASSESSMENT AND PLAN: 1. Recurrent lung cancer right lower lobe: Continue to monitor closely at this time. Patient has pneumonia. 2. Obstructive pulmonary disease with acute exacerbation: Continue oxygen and steroids as ordered by primary medical team. 3. Pneumonia: Continue antibiotics as ordered. Continue orders by primary medical team. 4. Supportive care: Continue protein shakes. Continue to have patient get out of bed when possible. Plan of care discussed with Dr. Kelley. Dictated by BELTRAN Rosales for Celio Kelley MD cc: BELTRAN Rosales MD Amit V. Vora, MD [facility]
[2018-10-08] MEDS: ADVAIR 250/50 DISKUS INH SCH ×2 (08:21→20:17)
[2018-10-08] MEDS: NS NEB INH SCH ×3 (08:22→15:39)
[2018-10-08] MEDS: XOPENEX NEB INH PRN ×4 (08:22→20:18)
--- NOTE | 2018-10-08 08:49 | PROGRESS NOTE ---
DATE: 10/08/2018 Ms. Jones is doing better. She is sitting in the chair today. Her lungs sound less congested. There is less wheezing. There is a question if she got methotrexate on Monday or not. If she did not, we will give it to her as her own medication that her daughter has brought. She takes 4 tablets of 2.5 mg of methotrexate per week. She is supposed to have the chest x-ray. Overall condition is unchanged. CLINICAL IMPRESSION: 1. Acute exacerbation of chronic obstructive pulmonary disease. 2. Metastatic breast cancer to the right lung. -4 cc: Merrick Becerril MD
--- NOTE | 2018-10-08 09:23 | Diag Imaging Result Doc PS360 ---
CHEST-2 VIEWS - 10/08/2018 INDICATION: follow up COMPARISON: 10/04/2018 FINDINGS: The possible cardiomegaly has improved, and the heart size is normal. There is some linear atelectasis in the lateral right lung base. No new infiltrates. Pulmonary vessels appear somewhat distended. No pneumothorax or pleural effusion. IMPRESSION: Improved cardiomegaly. No new abnormality. Electronically signed by Jones Segundo 10/08/2018 9:21 AM
[2018-10-08] MEDS: VANCOMYCIN 1,650 MG in NS 250 ML IV SCH (13:35)
[2018-10-08] MEDS: ELAVIL PO SCH (18:39)
[2018-10-08] MEDS: ROCEPHIN 1 GM in NS 50 ML IV SCH (21:35)
[2018-10-08] MEDS: ZITHROMAX 500 MG/NS 500 MG/250 ML IVPB IV SCH (22:41)
[2018-10-09] MEDS: PERCOCET-10 PO PRN ×5 (05:14→21:51)
[2018-10-09] MEDS: XOPENEX NEB INH PRN ×4 (07:51→19:19)
[2018-10-09] MEDS: ADVAIR 250/50 DISKUS INH SCH ×2 (07:51→19:20)
[2018-10-09] MEDS: LASIX PO SCH (08:36)
[2018-10-09] MEDS: COLACE PO SCH (08:36)
[2018-10-09] MEDS: ATIVAN PO SCH ×2 (08:36→17:30)
[2018-10-09] MEDS: NICODERM PATCH TD SCH (08:36)
[2018-10-09] MEDS: VITAMIN B-12 PO SCH (08:36)
[2018-10-09] MEDS: SOLU-MEDROL IV SCH ×2 (08:36→20:25)
[2018-10-09] MEDS: FOLIC ACID PO SCH (08:36)
--- NOTE | 2018-10-09 09:05 | PROGRESS NOTE ---
DATE: 10/09/2018 SUBJECTIVE: Ms. Jones is doing somewhat better. I am going to ask Physical Therapy to check on her. She has some expiratory wheezing, which is improving. She received methotrexate last week. Overall condition is unchanged. Chest x-ray shows some improvement. We will continue with the current management. -9 cc: Merrick Becerril MD
[2018-10-09] MEDS: VANCOMYCIN 1,650 MG in NS 250 ML IV SCH (13:12)
--- NOTE | 2018-10-09 14:27 | HEMO/ONC PROGRESS NOTE ---
DATE: 10/09/2018 SUBJECTIVE: Patient shortness of breath continues to slightly improve. No new complaints at this time. OBJECTIVE: Vital Signs: Temperature 98.3 degrees, heart rate 124, respiratory rate 20, blood pressure is 150/66, saturation 97% on nasal cannula. General: Patient is awake lying in bed no acute distress noted. HEENT: Anicteric Mucous membranes dry. Cardiovascular: S1, S2 increased rate and rhythm. Lungs: Bilateral breath sounds no wheezing bilaterally. Abdomen: Soft, nontender, bowel sounds present all 4 quadrants. Neurologic: Alert and oriented x3. No focal deficits noted. LABORATORY DATA: White blood cell count 11.5, hemoglobin 10.1, hematocrit 31.4, platelets are 291,000, potassium 5.2, BUN 20, creatinine 0.8. ASSESSMENT AND PLAN: 1. Recurrent lung cancer right lower lobe: Continue just monitor closely at this time. Waiting on patient to improve. 2. Chronic obstructive pulmonary disease acute exacerbation: Continue oxygen and steroids as ordered by primary medical team, continue further recommendations. 3. Pneumonia: Continue antibiotics as ordered, continue recommendation primary medical team. 4. Supportive care: Continue protein shakes, physical therapy has been consulted. Plan discussed Kelley. Dictated by BELTRAN Rosales for Celio Kelley MD cc: BELTRAN Rosales MD Amit V. Vora, MD MTDD
[2018-10-09] MEDS: ELAVIL PO SCH (17:31)
[2018-10-09] MEDS: ROCEPHIN 1 GM in NS 50 ML IV SCH (20:25)
[2018-10-09] MEDS: TYLENOL PO PRN (20:25)
[2018-10-09] MEDS: ZITHROMAX 500 MG/NS 500 MG/250 ML IVPB IV SCH (21:28)
[2018-10-09] MEDS ORDERED: NS 500 ML ONE (22:24)
[2018-10-10] MEDS: PERCOCET-10 PO PRN ×6 (01:44→22:53)
[2018-10-10] MEDS: XOPENEX NEB INH PRN ×4 (07:28→19:15)
[2018-10-10] MEDS: ADVAIR 250/50 DISKUS INH SCH ×2 (07:28→19:18)
[2018-10-10] MEDS: VITAMIN B-12 PO SCH (08:24)
[2018-10-10] MEDS: NICODERM PATCH TD SCH (08:24)
[2018-10-10] MEDS: ATIVAN PO SCH (08:24)
[2018-10-10] MEDS: SOLU-MEDROL IV SCH (08:25)
[2018-10-10] MEDS: FOLIC ACID PO SCH (08:25)
[2018-10-10] MEDS: LASIX PO SCH (08:25)
[2018-10-10] MEDS: COLACE PO SCH (08:25)
[2018-10-10] MEDS ORDERED: ROCEPHIN IM ONE (08:34)
[2018-10-10] MEDS ORDERED: XYLOCAINE-MPF 1% INJ ONE (08:34)
--- NOTE | 2018-10-10 09:02 | PROGRESS NOTE ---
DATE: 10/10/2018 SUBJECTIVE: Ms. Jones had a bad night with increasing pain in the right lower chest, increasing shortness of breath. She was restless. She has some expiratory wheezing. We are going to repeat a chest x-ray. We will try to see if we can get by without IV medications today so that we can discharge her in the morning. She is getting Xopenex in place of albuterolhelping her tremors as well as tachycardia. -0 cc: Merrick Becerril MD MTDD
--- NOTE | 2018-10-10 10:27 | Diag Imaging Result Doc PS360 ---
EXAM: CHEST-2 VIEWS 10/10/2018 HISTORY: pneumonia TECHNIQUE: PA and lateral chest COMMENT: There are fibrotic appearing opacities laterally in the right lower chest and in the lingula which have not changed since 10/04/2018. Compared to 06/05/2017 there are some platelike opacities in the mid lateral lung which were not apparently present previously and there may be some superimposed atelectasis. IMPRESSION: Basilar fibrosis plus minus atelectasis particularly laterally in the left lower lobe. Electronically signed by Kulwinder Denise 10/10/2018 10:25 AM
[2018-10-10] MEDS: PREDNISONE PO SCH ×2 (10:55→21:34)
[2018-10-10] MEDS: ATIVAN PO PRN (14:53)
[2018-10-10] MEDS: ELAVIL PO SCH (17:57)
[2018-10-11] MEDS: PERCOCET-10 PO PRN ×2 (04:58→08:46)
[2018-10-11] MEDS: XOPENEX NEB INH PRN (07:50)
[2018-10-11] MEDS: ADVAIR 250/50 DISKUS INH SCH (07:51)
[2018-10-11 08:11] VITALS: BP 147/78
[2018-10-11] MEDS: NICODERM PATCH TD SCH (08:35)
[2018-10-11] MEDS: VITAMIN B-12 PO SCH (08:35)
[2018-10-11] MEDS: COLACE PO SCH (08:35)
[2018-10-11] MEDS: PREDNISONE PO SCH (08:36)
[2018-10-11] MEDS: FOLIC ACID PO SCH (08:36)
[2018-10-11] MEDS: LASIX PO SCH (08:36)
[2018-10-11] MEDS ORDERED: LIDODERM TOP ONE (08:41)
[2018-10-11] MEDS: ATIVAN PO PRN (09:52)
--- NOTE | 2018-10-11 14:19 | DISCHARGE SUMMARY ---
ADMISSION DATE: 10/04/2018 DISCHARGE DATE: 10/11/2018 SUBJECTIVE: Ms. Jones who is a 73-year-old white female had a known case of COPD and rheumatoid arthritis was admitted with COPD exacerbation and pneumonia on the right side. Laboratory data in the hospital revealed x-ray was negative exam. Chest x-ray initially revealed pneumonia in the right lower lobe, and then revealed presence of basilar fibrosis and atelectasis that was on the final chest x-ray. Her lab data revealed white count of 11.15, hemoglobin 10.1, and hematocrit 31.4. Arterial blood gases had revealed a slight CO2 retention with pCO2 of 56 and 53. Chemistry and electrolytes are normal. BUN and creatinine were unremarkable except for slight elevation in BUN of 20 indicating mild dehydration. Urinalysis revealed some hematuria, 10 to 20 RBCs. Vancomycin level was therapeutic. One blood culture was positive for coagulase negative Staphylococcus. COURSE IN HOSPITAL: She was treated with IV antibiotics, bronchodilators, pain medications and antianxiety medications. She continued to improve. The x-ray now shows fibrosis and atelectasis. She has metastatic lung cancer. She is supposed to have the PET scan around the of this month. She is being discharged today. FINAL DIAGNOSES: 1. Pneumonia, right lower lobe. 2. Chronic obstructive pulmonary disease with exacerbation. 3. Severe rheumatoid arthritis. 4. Metastatic breast carcinoma to the lung. 5. Pulmonary fibrosis with atelectasis. 6. Severe pain in the right side of the chest. DISCHARGE INSTRUCTIONS: We will discharge her with Lidoderm patch 5% once daily and Ceftin 250 mg b.i.d. for 7 days. She will be followed in 7 days. cc: Merrick Becerril MD
--- NOTE | 2018-10-16 15:36 | DISCHARGE SUMMARY ---
ADMISSION DATE: 10/04/2018 DISCHARGE DATE: 10/11/2018 ADDENDUM TO DISCHARGE SUMMARY Ms. Jones was admitted with COPD exacerbation and she had acute respiratory failure with hypoxia and some CO2 retention. cc: Merrick Becerril MD
== END 2018-10-11 11:00 | disposition home or self-care (01) | DRG 193 ==
LOC: SUPCPDRO → ED 08:22 → 4N 13:11
PROVIDERS: ADMIT Internal Medicine; ATTEND Internal Medicine
CPT/HCPCS: 51701; 71020; 71046; 71100; 80048; 80202; 81001; 82805; 82948; 84484; 85025; 87040; 93005; 94640; 94761; 96365; 96375; 97162; 97530; 99285; A9270; J0456; J0696; J1170; J2405; J2920; J2930; J3370; J7030; J7040; J7050; J7506; J7512; J8610; P9612; XXXXX

== ENCOUNTER 2018-12-01 05:47 | Inpatient (IN) ==
[2018-12-01 06:06] LABS: ALLEN TEST YES; BE -3.8 mmoll (-3.0-3.0); BLOOD TYPE ARTERIAL; METHB 1.4 % (0.0-1.5); O2(CT) 14.6 mL/dL (15.0-23.0); O2HB 97.2 % (95.0-99.0); PCO2(98.6) 46 mmHg (35-45); PO2(98.6) 273 mmHg (60-100); SAMPLE BLOOD; SAO2 100.2 % (95.0-100.0); THB 10.2 g/dL (11.5-17.4)
[2018-12-01] MEDS ORDERED: AMIDATE IV ONE (06:07)
[2018-12-01] MEDS ORDERED: NS 2,700 ML IV ONE (06:07)
[2018-12-01] MEDS ORDERED: QUELICIN IV ONE (06:07)
[2018-12-01] MEDS ORDERED: NS 2,000 ML ONE (06:07)
[2018-12-01] MEDS ORDERED: QUELICIN ONE (06:11)
[2018-12-01] MEDS ORDERED: AMIDATE ONE (06:11)
[2018-12-01 06:15] LABS: BASO# 0.02 X1000 (0.0-0.2); BASO% 0.1 % (0.0-0.8); EOS# 0.01 X1000 (0.0-0.7); EOS% 0.1 % (0.0-10.0); HEMATOCRIT 32.7 % (37.0-47.0); HEMOGLOBIN 10.3 g/dL (12.0-16.0); IMM GRAN# 0.28 X1000 (0.0-0.04); IMM GRAN% 1.4 % (0.0-0.5); LYMPH# 0.92 X1000 (1.2-3.4); LYMPH% 4.7 % (20.5-51.1); MCHC 31.5 g/dL (33-37); MCV 114.3 FL (81-99); MONO# 1.11 X1000 (0.11-0.59); MONO% 5.6 % (1.7-9.3); NEUT# 17.36 X1000 (1.4-6.5); NEUT% 88.1 % (42.2-75.2); PLT 349 X1000 (130-400); RBC 2.86 XMIL (4.2-5.4); RDW 14.8 % (11.5-14.5)
[2018-12-01] MEDS ORDERED: ATIVAN ONE (06:25)
[2018-12-01] MEDS ORDERED: ZOSYN 3.375 GM in NS 50 ML IV ONE (06:28)
[2018-12-01] MEDS ORDERED: LEVAQUIN 500 MG/D5W 500 MG/100 ML IVPB IV ONE (06:28)
[2018-12-01] MEDS ORDERED: LEVOPHED 8 MG in D5 1/2 NS 250 ML IV SCH ×4 (06:30)
[2018-12-01 06:33] LABS: INR 1.03; PROTIME 14.3 Seconds (11.0-16.0); PTT 29.9 Seconds (22.3-41.8)
[2018-12-01] MEDS ORDERED: DIPRIVAN 1% 1,000 MG/100 ML BOTTLE ONE (06:33)
[2018-12-01 06:34] LABS: ALB/GLOB RATIO 1.8; ALBUMIN 3.9 g/dL (3.5-5.0); CALCIUM 8.4 mg/dL (8.8-10.2); CREATININE 2.2 mg/dL (0.5-0.9); POTASSIUM 5.2 mmol/L (3.5-5.1); TOTAL BILIRUBIN 0.54 mg/dL (0.20-1.00); TOTAL PROTEIN 6.1 g/dL (6.3-8.3)
--- NOTE | 2018-12-01 06:37 | PROVIDER DOCUMENTATION ---
HPI-Fever - General Chief Complaint: Shortness of Breath Stated Complaint: sob Time Seen by Provider: 12/01/18 06:28 Source: patient, family, EMS Allergies/Adverse Reactions: Patient Allergies Allergy/AdvReac Type Severity Reaction Status Date / Time naproxen Allergy Intermediate NAUSEA/VOMI Verified 11/01/12 10:08 TING Home Medications: Home Medication List Medication Instructions Recorded Confirmed Last Taken Type Furosemide [Lasix] 40 mg PO DAILY 11/01/12 10/04/18 05/28/17 History 40 Amitriptyline [Elavil] 50 mg PO QPM@1800 #0 tablet 07/13/15 10/04/18 05/28/17 18:00 Rx 50 Nicotine Patch [Nicoderm Patch] 21 mg TD DAILY #0 patch.[email or web address] 07/13/15 10/04/18 05/28/17 05:30 Rx 21 Prednisone 10 mg PO DAILY #7 tablet 07/13/15 10/04/18 05/28/17 05:30 Rx 10 Cyanocobalamin [Vitamin B-12] 1,000 microgm PO DAILY tablet 06/01/17 10/04/18 Unknown Rx Folic Acid 1 mg PO DAILY tablet 06/01/17 10/04/18 Unknown Rx [place]-3 Fatty Acids [Fish Oil 1,000 mg PO DAILY capsule 06/01/17 10/04/18 Unknown Rx Concentrate] Albuterol 2.5MG/Ipratrop 0.5MG 3 ml INH Q4HR 10/04/18 10/04/18 Unknown History [Duoneb (A & A)] Aspirin EC 81 mg PO DAILY 10/04/18 10/04/18 Unknown History Escitalopram [Lexapro] 20 mg PO DAILY 10/04/18 10/04/18 Unknown History Famotidine [Pepcid] 40 mg PO DAILY 10/04/18 10/04/18 Unknown History Fluticasone/Umeclidin/Vilanter 1 puff INH DAILY 10/04/18 10/04/18 Unknown History [Christianne Ellipta 100-62.5-25] Ipratropium [place] Neb [Atrovent 17 mcg INH DAILY 10/04/18 10/04/18 Unknown History Neb] Lorazepam [Ativan] 1 mg PO 4XDAY PRN 10/04/18 10/04/18 Unknown History Methotrexate 2.5 mg PO DIRECTED 10/04/18 10/04/18 Unknown History Polyethylene Glycol 3350 [Miralax] 17 gm PO BID 10/04/18 10/04/18 Unknown History Potassium Chloride 10 meq PO DAILY 10/04/18 10/04/18 Unknown History Acetaminophen [Tylenol] 650 mg PO Q6H PRN PRN tab 10/11/18 Unknown Rx Benzonatate [Tessalon] 200 mg PO Q6H PRN PRN cap 10/11/18 Unknown Rx Docusate Sodium [Colace] 100 mg PO DAILY cap 10/11/18 Unknown Rx Levalbuterol Neb [Xopenex Neb] 1.25 mg INH Q4H PRN PRN neb 10/11/18 Unknown Rx Lidocaine 5% Patch [Lidoderm] 1 ea TOP DAILY #30 patch 10/11/18 Unknown Rx Oxycodone/APAP 10 mg/325 mg 1 ea PO Q4H PRN PRN tab 10/11/18 Unknown Rx [Percocet-10] - History of Present Illness-Fever Nature of Presenting Problem: susie with history of COPD, exsmoker and CHF presented with fever, respiratory distress and failure, clammy and diaphoretic, fever Onset/Duration: reports: gradual Timing: reports: still present Severity: reports: moderate Context: reports: confusion Recent Illness?: reports: none Cognitive Baseline: alert, oriented x3 Modifying Factors: improves with: breathing Associated Symptoms: reports: fever/chills, shortness of breath Similar Symptoms Previously?: No Recently seen or treated by another doctor?: No - Glascow Coma Score Best Eye Response (Miquel): (4) open spontaneously Best Verbal Response (Miquel): (4) confused conversation Best Motor Response (Miquel): (6) obeys commands Review of Systems - Adult - REVIEW OF SYSTEMS - ADULT Constitutional: reports: fever, fatique Eyes: reports: no symptoms reported Ears, Nose, Mouth & Throat: reports: no symptoms reported Cardiovascular: reports: palpitations Respiratory: reports: shortness of breath, wheezing Gastrointestinal: reports: no symptoms reported, see HPI Genitourinary: reports: no symptoms reported, dysuria Musculoskeletal: reports: no symptoms reported, see HPI Integumentary: reports: no symptoms reported, see HPI Neurological: reports: see HPI Psychiatric: reports: no symptoms reported Endocrine: reports: no symptoms reported, see HPI Hematologic/Lymphatic: reports: no symptoms reported, see HPI Past History - Adult - PAST MEDICAL HISTORY-ADULT Review of Records: reports: Nursing Assessment Review Cardiovascular: reports: other (Cardiomegaly) Respiratory: reports: COPD, cancer Gastrointestinal: reports: other (Enlarged bile duct) - IMMUNIZATION STATUS Childhood Immunizations: See Nurse Assessment Flu Vaccine: See Nurse Assessment - FAMILY HISTORY Family History: reviewed, not pertinent Physical Exam-General - PHYSICAL EXAM-ADULT Initial Vital Signs Reviewed: Yes - CONSTITUTIONAL General Appearance: lethargic - EYES Eyes: PERRL/EOMI - HEAD, EARS, NOSE, MOUTH & THROAT HENMT: normocephalic/atraumatic - NECK Neck: non-tender - RESPIRATORY Respiratory: accessory muscle use, crackles, rales, wheezing - CARDIOVASCULAR Cardiovascular: tachycardia - GASTROINTESTINAL (ABDOMEN) Abdominal Exam: no organomegaly - LYMPHATIC Lymphatic: no adenopathy - MUSCULOSKELETAL Back Exam: no CVA tenderness, no vertebral tenderness Extremity: non-tender - SKIN Integumentary: diaphoresis, mottled - NEUROLOGIC Neurologic: other (patient moved all extremities, otherwise unable to fully assess the neuro exam) Progress - PLAN OF CARE/RESULTS Progress/Plan/Lab Results: Vital Signs - 8 hr 12/01/18 05:47 12/01/18 06:02 12/01/18 06:25 Temperature 100.6 F H Pulse Rate 160 H 161 H 155 H Respiratory Rate 47 H 32 H 31 H Blood Pressure 128/39 O2 Sat by Pulse Oximetry 100 100 98 12/01/18 06:40 12/01/18 07:02 12/01/18 07:25 Temperature Pulse Rate 159 H 154 H 95 H Respiratory Rate 28 H 21 14 Blood Pressure 80/46 123/79 149/57 O2 Sat by Pulse Oximetry 82 L 12/01/18 07:53 12/01/18 07:56 12/01/18 07:58 Temperature Pulse Rate 109 H 107 H 123 H Respiratory Rate 10 L 15 28 H Blood Pressure 152/87 154/75 O2 Sat by Pulse Oximetry 82 L 83 L 82 L 12/01/18 08:00 12/01/18 08:03 12/01/18 08:08 Temperature Pulse Rate 135 H 134 H 134 H Respiratory Rate 15 15 8 L Blood Pressure 159/70 156/70 O2 Sat by Pulse Oximetry 86 L 89 L 89 L 12/01/18 08:10 12/01/18 08:13 12/01/18 08:18 Temperature Pulse Rate 135 H 115 H 137 H Respiratory Rate 15 15 15 Blood Pressure 152/70 164/74 O2 Sat by Pulse Oximetry 90 L 97 98 12/01/18 08:20 Temperature Pulse Rate 135 H Respiratory Rate 15 Blood Pressure O2 Sat by Pulse Oximetry 98 Laboratory Results - last 24 hr 12/01/18 12/01/18 12/01/18 05:50 05:50 05:50 WBC 19.70 H RBC 2.86 L Hgb 10.3 L Hct 32.7 L MCV 114.3 H MCH 36.0 H MCHC 31.5 L RDW Std Deviation 14.8 H Plt Count 349 MPV 10.0 Immature Gran % (Auto) 1.4 H Neut % (Auto) 88.1 H Lymph % (Auto) 4.7 L [place] % (Auto) 5.6 Eos % (Auto) 0.1 Baso % (Auto) 0.1 Immature Gran # (Auto) 0.28 H Neut # (Auto) 17.36 H Lymph # (Auto) 0.92 L [place] # (Auto) 1.11 H Eos # (Auto) 0.01 Baso # (Auto) 0.02 PT 14.3 INR 1.03 PTT (Actin FS) 29.9 Sodium 142 Potassium 5.2 H Chloride 99 Carbon Dioxide 26 Anion Gap 17 BUN 28 H Creatinine 2.2 H Estimated GFR/1.73 m2 22 BUN/Creatinine Ratio 13 Glucose 209 H Calculated Osmolality 295 Calcium 8.4 L Total Bilirubin 0.54 AST 127 H ALT 199 H Alkaline Phosphatase 87 Creatine Kinase 40 Troponin T Total Protein 6.1 L Albumin 3.9 Globulin 2.2 Albumin/Globulin Ratio 1.8 Plasma Lactate Urine Source Urine Color Urine Turbidity Urine pH Ur Specific [place] Urine Protein Ur Glucose (Stick) Ur Ketones (Stick) Urine Blood Urine Nitrite Urine Bilirubin Urobilinogen Dipstick Urine Leukocytes Urine WBC (Auto) Urine RBC (Auto) U Epithel Cells (Auto) Urine Bacteria (Auto) Urine Crystals Small Round Cells Urine Casts Urine Yeast-like Cells 12/01/18 12/01/18 12/01/18 05:50 05:50 06:30 WBC RBC Hgb Hct MCV MCH MCHC RDW Std Deviation Plt Count MPV Immature Gran % (Auto) Neut % (Auto) Lymph % (Auto) [place] % (Auto) Eos % (Auto) Baso % (Auto) Immature Gran # (Auto) Neut # (Auto) Lymph # (Auto) [place] # (Auto) Eos # (Auto) Baso # (Auto) PT INR PTT (Actin FS) Sodium Potassium Chloride Carbon Dioxide Anion Gap BUN Creatinine Estimated GFR/1.73 m2 BUN/Creatinine Ratio Glucose Calculated Osmolality Calcium Total Bilirubin AST ALT Alkaline Phosphatase Creatine Kinase Troponin T 0.013 Total Protein Albumin Globulin Albumin/Globulin Ratio Plasma Lactate 5.8 H Urine Source CATH Urine Color YELLOW Urine Turbidity CLEAR Urine pH 5.0 Ur Specific [place] 1.018 Urine Protein TRACE A Ur Glucose (Stick) NEGATIVE Ur Ketones (Stick) TRACE A Urine Blood SMALL A Urine Nitrite NEGATIVE Urine Bilirubin NEGATIVE Urobilinogen Dipstick NORMAL Urine Leukocytes NEGATIVE Urine WBC (Auto) <10 Urine RBC (Auto) <10 U Epithel Cells (Auto) <10 Urine Bacteria (Auto) NEGATIVE Urine Crystals NONE SEEN Small Round Cells NONE SEEN Urine Casts NONE SEEN Urine Yeast-like Cells NONE SEEN Orders Category Date Time Status Call Admitting on Arrival AT ADMISSION Care 12/01/18 08:25 Active Cardiac Monitoring DIRECTED Care 12/01/18 06:02 Active IV Insertion ORDERED Care 12/01/18 06:02 Completed Notify MD of + Sepsis Screen NOW Care 12/01/18 06:02 Active Notify Physician As Ordered Care 12/01/18 06:02 Active Nursing- MD Consult Request ROUTINE Care 12/01/18 09:12 Ordered Saline Loc DIRECTED Care 12/01/18 08:25 Active Vital Signs Order ORDERED Care 12/01/18 08:25 Active Z-Document. for Tele Applied ORDERED Care 12/01/18 08:26 Active Physician/Provider Consults Routine Cons 12/01/18 09:10 Ordered CHEST-PORTABLE [RAD] Stat Exams 12/01/18 06:22 Completed CHEST/ABD TUBE PLACEMENT [RAD] Stat Exams 12/01/18 06:23 Completed ABG [RESP] Routine Lab 12/01/18 06:02 Ordered BLOOD CULTURE [BLDCUL] Stat Lab 12/01/18 06:58 Results CBC WITH DIFF [HEME] Stat Lab 12/01/18 05:50 Completed CK PROFILE [SP CHEM] Stat Lab 12/01/18 05:50 Completed COMPREHENSIVE METABOLIC PANEL [CHEM] Stat Lab 12/01/18 05:50 Completed LACTATE, PLASMA [CHEM] Lab 12/01/18 09:15 Uncollected LACTATE, PLASMA [CHEM] Lab 12/01/18 12:15 Uncollected LACTATE, PLASMA [CHEM] Q3H Lab 12/01/18 05:50 Completed PROTIME WITH INR [COAG] Stat Lab 12/01/18 05:50 Completed PTT [COAG] Stat Lab 12/01/18 05:50 Completed TROPONIN T Stat Lab 12/01/18 05:50 Completed URINALYSIS W/POSS RFLX CULT [URINALYSIS] Stat Lab 12/01/18 06:30 Completed URINE MANUAL MICROSCOPIC [URINALYSIS] Stat Lab 12/01/18 06:30 Completed 0.9% Sodium Chloride Inj [Ns] 1,000 ml Med 12/01/18 08:34 Discontinued .ROUTE As directed 0.9% Sodium Chloride Inj [Ns] 2,000 ml Med 12/01/18 06:07 Discontinued .ROUTE As directed 0.9% Sodium Chloride Inj [Ns] 2,700 ml Med 12/01/18 06:07 Discontinued IV 999 mls/hr 0.9% Sodium Chloride Inj [Ns] 250 ml Med 12/01/18 07:25 Active Epinephrine 4 mg IV As Directed mls/hr 0.9% Sodium Chloride Inj [Ns] 250 ml Med 12/01/18 07:00 Active Phenylephrine [Neftali-Synephrine] 50 mg IV As Directed mls/hr 0.9% Sodium Chloride Inj [Ns] 500 ml Med 12/01/18 08:31 Discontinued .ROUTE As directed Dextrose 5%-0.45% NaCl Inj [D5 1/2 Ns] 250 ml Med 12/01/18 06:30 Active Norepinephrine [Levophed] 8 mg IV As Directed mls/hr Etomidate [Amidate] Med 12/01/18 06:07 Discontinued 10 mg IV NOW ONE Etomidate [Amidate] Med 12/01/18 06:11 Discontinued 40 mg .ROUTE .STK-MED ONE Levofloxacin 500 mg/D5w [Levaquin 500 mg/D5w] Med 12/01/18 06:28 Discontinued 500 mg in 100 ml IV NOW Lorazepam [Ativan] Med 12/01/18 06:25 Discontinued 2 mg .ROUTE .STK-MED ONE Piperacillin/Tazobactam [Zosyn] 3.375 gm Med 12/01/18 06:28 Discontinued 0.9% Sodium Chloride Inj [Ns] 50 ml IV NOW Propofol [Diprivan 1%] Med 12/01/18 07:24 Discontinued 10 mg IV STAT ONE Propofol [Diprivan 1%] Med 12/01/18 06:33 Discontinued 1,000 mg in 100 ml .ROUTE As directed Propofol [Diprivan 1%] Med 12/01/18 08:00 Active 1,000 mg in 100 ml IV As Directed mls/hr Succinylcholine [Quelicin] Med 12/01/18 06:07 Discontinued 100 mg IV NOW ONE Succinylcholine [Quelicin] Med 12/01/18 06:11 Discontinued 200 mg .ROUTE .STK-MED ONE Vancomycin 1 gm/Ns Med 12/01/18 08:27 Active 1 gm in 250 ml IV NOW Vecuronium [Norcuron] Med 12/01/18 06:57 Discontinued 10 mg .ROUTE .STK-MED ONE Vecuronium [Norcuron] Med 12/01/18 07:03 Discontinued 10 mg IV NOW ONE Water, Sterile Inj [Sterile Water Inj] Med 12/01/18 06:58 Discontinued 10 ml .ROUTE .STK-MED ONE Oxygen Device Stat Oth 12/01/18 06:02 Active Telemetry [OM.EQ] Routine Oth 12/01/18 08:25 Active EKG [EKG] Stat Ther 12/01/18 05:53 Ordered Transfer/Admit Order [TRANSFER] Routine Transfer 12/01/18 09:10 Ordered Result Diagrams: 12/01/18 05:50 12/01/18 05:50 - REASSESSMENT Reassessment #1 Time Reassessed: 08:09 Status: unchanged - CONSULTS/PCP/HOSPITALIST Notification #1 *Consult/PCP/Hospitalist*: Dr Norton Time Discussed: 08:23 Reason/Comments: wants pulmonary consulted Consult Disposition: Admit - CHANGE OF SHIFT REPORT (ED Provider) 1 Report Given and Care Transferred to:: Dr Vidales Time of Transfer: 07:00 Items Pending: Labs Procedures - CENTRAL LINE Consent Form Signed?: Yes Time-Out Verification Completed?: Yes Central Line Lumen: triple Central Line Procedure Prep: Hand Hygeine Performed, Kit Utilized, Chloraprep Patient Position (To prevent Air Embolism): Supine (Femoral) Central Line Position: femoral (R) Ultrasound Guided?: No Hat, mask, sterile gown, & sterile gloves worn by physician?: Yes Site scrubbed vigorously for 30 seconds? (Groin: 2 min): Yes Anesthetic: 1% Post Procedure: Sutured in place Complications: See comments (left was attempted first, but no return after placement.) - INTUBATION Airway Evaluation: Obese Mallampati Class: 4 Intubation Method: orotracheal Equipment: Glidescope Tube Size (cm): 7.5 Pretreated with 100% Oxygen?: Yes Breath Sounds after Intubation: equal ETT Primary Tube Confirmation: Capnometry CO2 Change, Direct Visualization, Chest Rise and Fall Intubation Complications: no complications Departure - Departure Date of Disposition Decision: 12/01/18 Time of Disposition Decision: 06:38 DIAGNOSIS: Sepsis Disposition: ADMITTED INPATIENT 09 Certified Medical Emergency: Emergent Condition: Critical Referrals and Follow-Ups: Merrick Becerril MD [Primary Care Provider] - - Critical Care Note This patient required my direct & personal management of CC.: Yes Total Time (mins): 48 Critical Care Statement: This patient required my direct personal management to treat or rule out processes, the absence of which, could potentiallly result in sudden, clinically significant life or limb threatening deterioration. Attestation - Physician/ DENISE Attestation Patient care was provided by Advanced Practice Provider:: No The physician spent face to face time with patient:: Yes Advanced Practice Provider documentation review:: Supervising physician onsite and consulted in the evaluation and care of this patient. The physician did have a face to face encounter with the patient.
[2018-12-01] MEDS: DIPRIVAN 1% 1,000 MG/100 ML BOTTLE IV SCH ×4 (06:41→23:43)
[2018-12-01] MEDS ORDERED: ATIVAN IV ONE (06:45)
[2018-12-01 06:50] LABS: URINE SOURCE CATH
[2018-12-01 06:52] LABS: BILIRUBIN URINE NEGATIVE (NEGATIVE); BLOOD URINE SMALL (NEGATIVE); COLOR YELLOW; GLUCOSE URINE NEGATIVE (NEGATIVE); KETONE URINE TRACE mg/dL (NEGATIVE); LEUKOCYTES URINE NEGATIVE (NEGATIVE); NITRITE URINE NEGATIVE (NEGATIVE); PROTEIN URINE TRACE mg/dL (NEGATIVE); SP GRAVITY URINE 1.018; TURBIDITY URINE CLEAR (CLEAR); UROBILINOGEN URINE NORMAL (NORMAL)
[2018-12-01] MEDS ORDERED: NORCURON ONE (06:57)
[2018-12-01] MEDS ORDERED: STERILE WATER INJ. ONE (06:58)
[2018-12-01 06:59] LABS: UR EPITHELIAL CELLS <10 /HPF (<10); URINE BACTERIA NEGATIVE /HPF; URINE RBC <10 /HPF (<10); URINE WBC <10 /HPF (<10)
[2018-12-01] MEDS ORDERED: NEO-SYNEPHRINE 50 MG in NS 250 ML IV SCH (07:00)
[2018-12-01] MEDS ORDERED: NORCURON IV ONE (07:03)
[2018-12-01 07:21] LABS: URINE CASTS NONE SEEN; URINE CRYSTALS NONE SEEN; URINE YEAST NONE SEEN
[2018-12-01 07:22] LABS: URINE SMALL ROUND CELLS NONE SEEN
[2018-12-01] MEDS ORDERED: DIPRIVAN 1% IV ONE (07:24)
[2018-12-01] MEDS ORDERED: EPINEPHRINE 4 MG in NS 250 ML IV SCH ×2 (07:25→07:30)
--- NOTE | 2018-12-01 07:57 | Diag Imaging Result Doc PS360 ---
EXAM: CHEST/ABD TUBE PLACEMENT INDICATION: ET Tube/NGT TECHNIQUE: One view COMPARISON: None. FINDINGS: The newly placed NG tube tip projects over the lower esophagus. It is not below the diaphragm. ET tube is probably identified projecting over the upper trachea. Otherwise, the chest is grossly stable as compared to the prior study done a few minutes earlier. IMPRESSION: Malpositioned NG tube with the tip projecting of the distal esophagus. Advancement of 10 to 11 cm recommended. Electronically signed by Castro Pryor 12/01/2018 7:55 AM
--- NOTE | 2018-12-01 07:59 | Diag Imaging Result Doc PS360 ---
EXAM: CHEST-PORTABLE INDICATION: tube placement TECHNIQUE: One view COMPARISON: 10/10/2018 FINDINGS: The newly placed NG tube projects over the trachea at about the thoracic inlet. Consider advancing 3 to 4 cm. The NG tube tip projects over the lower esophagus and is not below the diaphragm. The central vasculature is prominent indicating pulmonary venous congestion. There is no discrete pleural fluid collection or pneumothorax. There is cardiomegaly. IMPRESSION: 1.High lying ET tube tip near the thoracic inlet. 2.NG tube tip projecting over the lower esophagus and not below the diaphragm. 3.Cardiomegaly and pulmonary venous congestion. Electronically signed by Castro Pryor 12/01/2018 7:56 AM
[2018-12-01] MEDS ORDERED: VANCOMYCIN 1 GM/NS 1 GM/250 ML IVPB IV ONE (08:27)
[2018-12-01] MEDS ORDERED: NS 0 ML ONE (08:31)
[2018-12-01] MEDS ORDERED: NS 1,000 ML ONE (08:34)
--- NOTE | 2018-12-01 10:07 | ED EKG INTERP ---
This chart was entered by Hortencia Oneil Scribe, acting as scribe for Yoseph Vidales DO. EKG Interpretation - EKG Time of EKG reading by physician:: 06:00 EKG Read and Signed by:: Yoseph Vidales EKG Interpretation (*Must complete 3 of following elements*): Abnormal Rate: 161 Rhythm: Undetermined [place]: normal QRS: other (low voltage QRS; lateral infarct; cannot rule out inferior infarct) MN Interval: normal ST Wave: normal - EKG # 2 Time of EKG reading by physician:: 07:22 EKG Read and Signed by:: Yoseph Vidales EKG Interpretation (*Must complete 3 of following elements*): Abnormal Rate: 91 Rhythm: Sinus w/ 1st degree AV block Ever[place]: left QRS: RBB, other (inferior infarct) MN Interval: normal ST Wave: normal Attestation - Physician/ DENISE Attestation Patient care was provided by Advanced Practice Provider:: No The physician spent face to face time with patient:: Yes Advanced Practice Provider documentation review:: Supervising physician onsite and consulted in the evaluation and care of this patient. The physician did have a face to face encounter with the patient. This chart was documented by the indicated scribe, (Hortencia Oneil Scribe) and accurately reflects the services I performed and decisions made by Sobeida davidson Thomas E., DO, as attested by the provider's signature.
[2018-12-01] MEDS ORDERED: VANCOMYCIN IV PER PHARMACY MISC SCH (10:30)
[2018-12-01] MEDS: XOPENEX NEB INH PRN ×4 (11:05→23:40)
[2018-12-01] MEDS: SOLU-MEDROL IV SCH ×3 (11:21→23:21)
[2018-12-01] MEDS: PROTONIX IV SCH (11:22)
[2018-12-01] MEDS: ZOSYN 3.375 GM in NS 50 ML IV SCH ×2 (13:08→20:10)
[2018-12-01] MEDS: NS 1,000 ML IV SCH ×2 (13:08→23:45)
[2018-12-01] MEDS ORDERED: VANCOMYCIN 1,800 MG in NS 500 ML IV ONE (15:00)
[2018-12-01 15:29] LABS: BASO# 0.04 X1000 (0.0-0.2); BASO% 0.1 % (0.0-0.8); HEMATOCRIT 30.2 % (37.0-47.0); HEMOGLOBIN 9.6 g/dL (12.0-16.0); IMM GRAN# 0.36 X1000 (0.0-0.04); IMM GRAN% 1.1 % (0.0-0.5); LYMPH# 0.23 X1000 (1.2-3.4); LYMPH% 0.7 % (20.5-51.1); MCH 36.6 PG (27-31); MCHC 31.8 g/dL (33-37); MCV 115.3 FL (81-99); MONO# 0.81 X1000 (0.11-0.59); MONO% 2.5 % (1.7-9.3); MPV 9.5 FL (7.4-10.4); NEUT# 31.15 X1000 (1.4-6.5); NEUT% 95.6 % (42.2-75.2); PLT 271 X1000 (130-400); RBC 2.62 XMIL (4.2-5.4); RDW 14.9 % (11.5-14.5); WBC 32.59 X1000 (4.8-10.8)
[2018-12-01 15:45] LABS: BANDS 7 % (0-1); LYMPHS 1 % (21-51); MONO 3 % (1-9); SEGS 88 % (42-75)
[2018-12-01 15:46] LABS: STOMATOCYTES 1+
[2018-12-01 15:49] LABS: ALB/GLOB RATIO 1.3; ALBUMIN 3.3 g/dL (3.5-5.0); CALCIUM 7.6 mg/dL (8.8-10.2); CREATININE 1.6 mg/dL (0.5-0.9); MAGNESIUM 1.8 mg/dL (1.5-2.7); POTASSIUM 5.1 mmol/L (3.5-5.1); TOTAL BILIRUBIN 0.41 mg/dL (0.20-1.00); TOTAL PROTEIN 5.9 g/dL (6.3-8.3)
[2018-12-01] MEDS ORDERED: TYLENOL PR PRN (16:10)
--- NOTE | 2018-12-01 16:34 | Diag Imaging Result Doc PS360 ---
EXAM: CHEST-PORTABLE INDICATION: NG advancement TECHNIQUE: One view COMPARISON: 12/01/2018 FINDINGS: The NG tube has been advanced. The tip now projects well below the diaphragm and is assumed to be in the lumen of the stomach in the expected position. The ET tube tip eject over the trachea and above the bassem in the expected position. Electrode pads now project over the chest wall. The chest is essentially stable, otherwise. IMPRESSION: Interval advancement of the NG tube, which is now in the expected position. Electronically signed by Castro Pryor 12/01/2018 4:31 PM
[2018-12-01 19:01] LABS: MODALITY BI PAP
--- NOTE | 2018-12-01 20:14 | HISTORY AND PHYSICAL ---
CHIEF COMPLAINT: Shortness of breath. HISTORY OF PRESENT ILLNESS: Ms. Jones is a 73-year-old white female patient, not doing well for the last few days. The patient had symptoms suggestive of lower respiratory tract infection. The patient was on antibiotics. The patient called her PMD. She was prescribed Levaquin, which she was taking. Her oral intake was fair. Last night the patient was restless. She woke up to go to the bathroom. The daughter was watching her closely. She offered her to go to the hospital, but the patient declined. The patient took a breathing treatment with partial improvement. The patient does have COPD, cough and expectoration. Her shortness of breath deteriorated. The patient was gasping for air. The patient was declining to go to the ER. Daughter called EMS. When EMS arrived, the patient was hypoxemic, very short of breath. The patient was brought to the emergency room. In the ER, the patient was in acute respiratory distress. Evaluated by ER physician. The patient had a fever of 100.6. Her respiratory rate was 47. Pulse rate was 160, and the patient was intubated in the ER. The patient was given a breathing treatment. The patient had an episode of cardiac arrest/pulseless electrical activity, and they had to do a Code Blue. The patient was hypotensive. The patient revived. She was given pressure support, IV antibiotics and supportive care. The ER physician placed a central line in the groin. The patient was critically ill, admitted to the ICU. The patient was tachycardic and hypotensive. I did talk to the patient's daughter and ER nurse who was taking care of the patient. No history of fall. No chest pain. No history of nausea or vomiting. No diarrhea, blood, or mucus in the stool. No dysuria or hematuria. No seizure-type episode. No further history available at this time. MEDICATIONS: Elavil, DuoNeb, aspirin, vitamin B12, Lexapro, Pepcid, Trelegy, folic acid, Ativan, methotrexate, nicotine patch, Percocet, MiraLAX, potassium and prednisone. ALLERGIES: Naproxen. PAST MEDICAL HISTORY: Significant for pneumonia. The patient was in the hospital in September 2018. The patient has lung cancer, COPD, breast cancer and right mastectomy, hysterectomy, cholecystectomy, bilateral cataract surgery. PERSONAL HISTORY: Smoker, smoking much less. Denies alcohol or substance abuse. Needs very minimal assistance in activities of daily living. FAMILY HISTORY: Noncontributory. REVIEW OF SYSTEMS: As per HPI. Otherwise unobtainable. PHYSICAL EXAMINATION: GENERAL: Elderly white female patient on mechanical ventilation. VITAL SIGNS: Temperature 98.8, heart rate 135, respiratory rate 20, blood pressure 133/72. The patient is on mechanical ventilation. SKIN: Senile turgor. The patient does have bruise adrian on both arms. HEENT: Head atraumatic, normocephalic. Perrin conjunctivae. Anicteric sclerae. Extraocular muscle movement normal. Fundus cannot be penetrated. Cannot comment about pharyngeal exam, as patient has endotracheal tube. Ears and nose benign. NECK: Supple. No JVD, thyromegaly or lymphadenopathy. CHEST: Bibasilar crepitations. Expiratory wheezing. CVS: S1 and S2 heard. Tachycardia. Difficult to comment about murmur or gallop. ABDOMEN: Soft, globular. Bowel sounds present. EXTREMITIES: No cyanosis, clubbing. No acute DVT. DIGITAL X RAY SERVICE ENGINEER: Patient is on mechanical ventilation, sedated, uncooperative for detailed exam. LABORATORY DATA: Revealed leukocytosis with left shift. WBC count 19.7, hemoglobin 10.3, hematocrit 32.7. Platelet count was 349. PT/INR 1.03, PTT 29.9. Electrolytes: Sodium 142, potassium 5.2. BUN 28, creatinine 2.2. AST 127. ALT was 199. Plasma lactate was 5.8. Urinalysis results reviewed. Chest x-ray and EKG noted. IMPRESSION: 1. Patient admitted with acute hypoxemic respiratory failure status post cardiac arrest. 2. Chronic obstructive pulmonary disease exacerbation. 3. History of lung cancer. 4. Possibility of sepsis cannot be ruled out. 5. History suggestive of rheumatoid arthritis. 6. The patient is a acutely ill. PLAN: Overall plan and prognosis discussed with the family, and they are in agreement. Will do a pulmonary critical care consult, supportive care, and repeat her labs. cc: Ethan Edward MD
--- NOTE | 2018-12-01 21:51 | CONSULTATION ---
DATE OF CONSULTATION: 12/01/2018 CHIEF COMPLAINT: Shortness of breath. HISTORY OF PRESENT ILLNESS: This is a 73-year-old female with a past medical history of lung cancer, COPD and breast cancer, with right mastectomy. Recent chest x-ray revealed pulmonary venous congestion. MEDICATIONS: Please see home reconciliation list. ALLERGIES: Naproxen. PAST MEDICAL HISTORY: Lung cancer, COPD, breast cancer with right mastectomy, hysterectomy, cholecystectomy, bilateral cataract surgery. FAMILY HISTORY: Noncontributory. REVIEW OF SYSTEMS: As mentioned in HPI, otherwise unobtainable. SOCIAL HISTORY: Smoker per medical record. Denies alcohol or substance abuse. PHYSICAL EXAMINATION: General: Elderly white female, acutely ill appearing. Currently on mechanical ventilation. Vital signs: Blood pressure 105/89, pulse 130, O2 saturation 94% with mechanical ventilation.HEENT: Head atraumatic, normocephalic. [place] mucous membranes. Anicteric sclerae. Endotracheal tube in place. Neck supple. Trachea midline. Respiratory: Wheezing. Some rhonchi noted throughout lung lopez. Cardiovascular: S1 and S2 auscultated. Tachycardia noted. Abdomen soft. Bowel sounds present in all 4 quadrants. Extremities without clubbing, cyanosis or edema. LABORATORY DATA: White blood cells 32.59, red blood cells 2.62, hemoglobin 9.6, hematocrit 30.2. PT 14.3, INR 1.03, PTT 29.9. PH 7.30, pCO2 is 46, pO2 is 273, HCO3 is 22.0, base excess -3.8, oxyhemoglobin 97.2. Lactate 5.50. Sodium 141, potassium 5.1, chloride 103, carbon dioxide 26, BUN 25, creatinine 1.6, glucose 135, AST 338, ALT 411. ProBNP 1361. Total protein 5.9, albumin 3.3. DIAGNOSTIC DATA: As mentioned in HPI. ASSESSMENT AND PLAN: 1. Acute hypoxemic respiratory failure. 2. Status post cardiac arrest. 3. Chronic obstructive pulmonary disease. Continue bronchodilators, steroids and antibiotics. Continue gastrointestinal prophylaxis with Protonix 40 mg intravenously. Thank you for the courtesy of this consult. Dictated by BELTRAN Medley for Hector Steele MD cc: BELTRAN Medley MD Bharat K. Vakharia, MD MTDD
[2018-12-02] MEDS: DIPRIVAN 1% 1,000 MG/100 ML BOTTLE IV SCH ×8 (03:14→21:53)
[2018-12-02] MEDS: XOPENEX NEB INH PRN ×6 (03:28→23:30)
[2018-12-02] MEDS: SOLU-MEDROL IV SCH ×4 (03:43→21:53)
[2018-12-02] MEDS: ZOSYN 3.375 GM in NS 50 ML IV SCH ×3 (04:06→20:48)
[2018-12-02 04:22] LABS: BASO# 0.01 X1000 (0.0-0.2); HEMATOCRIT 27.9 % (37.0-47.0); HEMOGLOBIN 8.9 g/dL (12.0-16.0); IMM GRAN# 0.23 X1000 (0.0-0.04); IMM GRAN% 0.9 % (0.0-0.5); LYMPH# 0.25 X1000 (1.2-3.4); MCH 35.7 PG (27-31); MCHC 31.9 g/dL (33-37); MONO# 0.61 X1000 (0.11-0.59); MONO% 2.4 % (1.7-9.3); MPV 9.7 FL (7.4-10.4); NEUT# 24.49 X1000 (1.4-6.5); NEUT% 95.7 % (42.2-75.2); PLT 249 X1000 (130-400); RBC 2.49 XMIL (4.2-5.4); RDW 14.7 % (11.5-14.5); WBC 25.59 X1000 (4.8-10.8)
[2018-12-02 04:25] LABS: ALLEN TEST YES; BE 0.1 mmoll (-3.0-3.0); BLOOD TYPE ARTERIAL; HCO3-(ACT) 24.9 mmoll (20.0-26.0); METHB 1.3 % (0.0-1.5); O2(CT) 12.2 mL/dL (15.0-23.0); O2HB 90.7 % (95.0-99.0); PO2(98.6) 61 mmHg (60-100); SAMPLE BLOOD; SAO2 94.4 % (95.0-100.0); SRATE 12 BPM; THB 9.5 g/dL (11.5-17.4); TVOL 500 mL
[2018-12-02 04:26] LABS: MODALITY VENTILATOR; PCO2(98.6) 55 mmHg (35-45)
[2018-12-02 04:49] LABS: AGAP 11; BUN 19 mg/dL (8-22); CALCIUM 7.7 mg/dL (8.8-10.2); CHLORIDE 106 mmol/L (98-107); COSMO 289; CREATININE 0.9 mg/dL (0.5-0.9); ESTIMATED GFR > 60; GLUCOSE 170 mg/dL (70-104); POTASSIUM 4.2 mmol/L (3.5-5.1); SODIUM 142 mmol/L (136-145); TCO2 25 mmol/L (25-35)
[2018-12-02] MEDS ORDERED: NS 500 ML ONE (07:21)
[2018-12-02] MEDS ORDERED: LASIX IV ONE (07:26)
--- NOTE | 2018-12-02 07:45 | PROGRESS NOTE ---
DATE: 12/02/2018 SUBJECTIVE: Ms. Jones is doing fair. No high-grade fever or chills. The patient is on mechanical ventilation for her respiratory failure. At times, tachycardia. No nausea or vomiting. No diarrhea. I appreciate Dr. Steele's help managing patient. PHYSICAL EXAMINATION: Vital Signs: Noted. Neck: Supple. No JVD. Lungs: Decreased air entry at both the bases. Occasional wheezing. CVS: S1 and S2. Tachycardia. Abdomen: Soft, globular. Bowel sounds present. OVEN TENDER: The patient is sedated, on the ventilator. LABORATORY DATA: Done today, WBC count 25.59, hemoglobin 8.9, hematocrit 27.9, platelet count was 249,000. Blood gas, pH 7.3, pCO2 55, PO2 was 61. Electrolytes were fairly benign. ProBNP was 4543. Chest x-ray, official result is pending. CONSIDERATION: 1. Acute hypoxemic respiratory failure. 2. Chronic obstructive pulmonary disease exacerbation. 3. History of lung cancer. 4. Tachycardia. 5. Rheumatoid arthritis. 6. Fluid overload. PLAN: I am going to give her IV Lasix. Continue rest of the treatment. The patient is on IV antibiotics, supportive care, ventilatory support. We will continue the rest of the treatment and close observation. cc: Ethan Edward MD
--- NOTE | 2018-12-02 08:04 | Diag Imaging Result Doc PS360 ---
EXAM: CHEST-1 VIEW INDICATION: SOB TECHNIQUE: One view COMPARISON: 11/21/2018 FINDINGS: Support tubes and lines are in stable positions. Lung volumes are lower and there has been an increase in interstitial edema. There are opacities at the lung bases suggesting development of effusions, at least on the right. Cardiac silhouette is stable. IMPRESSION: Worsened interstitial edema and development of small pleural effusions, at least on the right. Electronically signed by Castro Pryor 12/02/2018 8:02 AM
[2018-12-02] MEDS: NS 1,000 ML IV SCH ×2 (08:16→18:41)
--- NOTE | 2018-12-02 08:19 | OPERATIVE NOTE ---
PROCEDURE DATE: 12/02/2018 PREOPERATIVE DIAGNOSES: 1. 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 2. Phlebosclerosis. POSTOPERATIVE DIAGNOSES: 1. 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 2. Phlebosclerosis. PROCEDURE PERFORMED: Ultrasound guided placement of left common femoral vein central line. SURGEON: Andrzej Robertson MD. RESPIRATORY MEDICINE PHYSICIAN: None. ANESTHESIA: Local administered by the surgeon. FINDINGS: Ultrasound showed common femoral vein on the left side there was amenable to placement. COMPLICATIONS: None at the time of this dictation. ESTIMATED BLOOD LOSS: Minimal. SPECIMENS REMOVED: None. BRIEF HISTORY: A 73-year-old female who came in with respiratory distress. Had a cardiac event and had CPR for cardiac arrest. Apparently, there was a central line placed during the cardiac arrest, in the right groin. It was found today to be in the artery. We confirmed this by placing it to a CVP monitor and there was pulsatility. It was felt that she needed a new central line. The risks, benefits, and alternatives were discussed with the family. DESCRIPTION OF PROCEDURE: After informed consent was obtained, the patient remained ventilated, the in the ICU, sedated. The left groin was prepped and draped in a sterile fashion. After a formal time-out, confirming patient, date, and procedure, we turned our attention to the left groin. We identified the common femoral vein under ultrasound guidance. We used local anesthetic. We then directed the needle to the area, aspirated nonpulsatile blood. Able to dilate up the tract in the typical Seldinger technique. After we placed a wire, we then placed a central line in. All ports aspirated and flushed easily. It was again nonpulsatile blood flow. We secured it in place and placed a sterile dressing. The patient tolerated the procedure well. Remained in the ICU, still in critical condition. cc: MD Ethan Marie MD
[2018-12-02] MEDS: PROTONIX IV SCH (10:13)
--- NOTE | 2018-12-02 13:15 | Diag Imaging Result Doc PS360 ---
EXAM: CT ANGIOGRM PULMONARY ARTERIES INDICATION: Rule out PE TECHNIQUE: This exam was performed using automated exposure control, adjustment of mA or kV according to patient size, and/or use of iterative reconstruction technique. Thin section axial images and 3-D MIPS were obtained. COMPARISON: CT chest without contrast dated 04/27/2017 FINDINGS: There is no evidence of pulmonary embolism. There is patchy aortic atherosclerotic calcification. There is no evidence of aortic aneurysm or dissection. There is cardiomegaly. An ET tube is in place. There is no evidence of significant mediastinal lymphadenopathy. There is a large right pleural effusion. The effusion appears partially loculated. It is much larger than it appeared on a plain radiograph performed earlier today, likely due to the partial loculation as well as the positioning of the patient on the previous radiograph. There is complete collapse of the right lower lobe and there is significant right upper lobe and right middle lobe atelectasis. There is a very small effusion effusion on the left and there is much milder left basilar atelectasis and atelectasis in the lingula. The large effusion on the right is causing very mild leftward mediastinal shift. There are fractures of the seventh, eighth, ninth, and 10th ribs posteriorly on the right. There is mild bony callus suggesting that they are not acute but may be subacute. They were not present on the previous study. Please correlate clinically. There are also fractures of the second through the eighth ribs anteriorly. Limited views of the upper abdomen are essentially unremarkable. IMPRESSION: 1.Multiple right rib fractures, some of which exhibit mild bony callus. They may be subacute. Please correlate clinically. 2.Large right pleural effusion with marked atelectasis. 3.Small left effusion with milder atelectasis. 4.Cardiomegaly. 5.No evidence of pulmonary embolism. Electronically signed by Castro Pryor 12/02/2018 1:12 PM
[2018-12-02] MEDS: VANCOMYCIN 1,300 MG in NS 250 ML IV SCH (16:51)
[2018-12-03] MEDS: DIPRIVAN 1% 1,000 MG/100 ML BOTTLE IV SCH ×9 (00:29→23:12)
[2018-12-03] MEDS: SOLU-MEDROL IV SCH ×4 (03:59→23:11)
[2018-12-03] MEDS: ZOSYN 3.375 GM in NS 50 ML IV SCH ×3 (03:59→19:45)
[2018-12-03 04:42] LABS: ALLEN TEST YES; BE 4.7 mmoll (-3.0-3.0); BLOOD TYPE ARTERIAL; HCO3-(ACT) 28.5 mmoll (20.0-26.0); METHB 0.8 % (0.0-1.5); O2(CT) 12.3 mL/dL (15.0-23.0); O2HB 91.7 % (95.0-99.0); PCO2(98.6) 46 mmHg (35-45); PO2(98.6) 61 mmHg (60-100); SAMPLE BLOOD; SAO2 94.5 % (95.0-100.0); SRATE 12 BPM; THB 9.5 g/dL (11.5-17.4); TVOL 500 mL; pH(98.6) 7.42 (7.35-7.45)
[2018-12-03 04:53] LABS: MODALITY VENTILATOR
[2018-12-03] MEDS: NS 1,000 ML IV SCH ×2 (05:21→14:48)
[2018-12-03 06:58] LABS: EOS# 0.03 X1000 (0.0-0.7); EOS% 0.2 % (0.0-10.0); HEMATOCRIT 26.7 % (37.0-47.0); HEMOGLOBIN 8.4 g/dL (12.0-16.0); IMM GRAN# 0.22 X1000 (0.0-0.04); IMM GRAN% 1.1 % (0.0-0.5); LYMPH# 0.26 X1000 (1.2-3.4); LYMPH% 1.3 % (20.5-51.1); MCH 34.7 PG (27-31); MCHC 31.5 g/dL (33-37); MCV 110.3 FL (81-99); MONO# 0.94 X1000 (0.11-0.59); MONO% 4.7 % (1.7-9.3); MPV 10.2 FL (7.4-10.4); NEUT% 92.7 % (42.2-75.2); PLT 243 X1000 (130-400); RBC 2.42 XMIL (4.2-5.4); RDW 14.5 % (11.5-14.5); WBC 19.85 X1000 (4.8-10.8)
[2018-12-03 07:14] LABS: AGAP 11; BUN 18 mg/dL (8-22); CALCIUM 8.1 mg/dL (8.8-10.2); CHLORIDE 109 mmol/L (98-107); COSMO 297; CREATININE 0.7 mg/dL (0.5-0.9); ESTIMATED GFR > 60; GLUCOSE 148 mg/dL (70-104); POTASSIUM 3.6 mmol/L (3.5-5.1); SODIUM 147 mmol/L (136-145); TCO2 27 mmol/L (25-35)
[2018-12-03 07:19] LABS: BANDS 2 % (0-1); LYMPHS 1 % (21-51); MONO 3 % (1-9); SEGS 94 % (42-75)
[2018-12-03 07:20] LABS: ANISOCYTOSIS OCCASIONAL
--- NOTE | 2018-12-03 07:22 | Diag Imaging Result Doc PS360 ---
EXAM: CHEST-1 VIEW INDICATION: SOB TECHNIQUE: One view COMPARISON: 12/02/2018 FINDINGS: Support tubes and lines are in stable positions. Bilateral pleural effusions, larger on the right, are essentially stable. Mild interstitial edema is approximately stable. No new consolidation is identified. Cardiac silhouette is stable. IMPRESSION: Grossly stable chest. Electronically signed by Castro Pryor 12/03/2018 7:20 AM
--- NOTE | 2018-12-03 07:23 | EKG Report ---
Test Performed on : 12/01/2018 07:22:38 AM Test Reason : sob Blood Pressure : / mmHG Vent. Rate : 091 BPM Atrial Rate : 091 BPM P-R Int : 296 ms QRS Dur : 144 ms QT Int : 340 ms P-R-T Axes : 000 -69 060 degrees QTc Int : 418 ms Sinus rhythm. with 1st degree AV block. Left axis deviation Right bundle branch block Inferior infarct , age undetermined Abnormal ECG When compared with ECG of 04-OCT-2018 09:11, (Unconfirmed) [place] interval has increased Right bundle branch block is now present Inferior infarct is now present Unconfirmed Result
--- NOTE | 2018-12-03 09:20 | PROGRESS NOTE ---
DATE: 12/03/2018 SUBJECTIVE: Ms. Jones has been on the vent. She is getting IV propofol, and is on ventilatory support for acute respiratory failure. She had a cardiac arrest in the Emergency Room and was coded. The chest x-ray showed some fractures on the right side. She has bilateral pleural effusion, cardiomegaly, and pulmonary congestion. ProBNP is elevated. Her blood pressure is well maintained without pressure agents at the present time. We asked for cardiology consult for congestive heart failure. She already has a pulmonary consult. PROBLEMS: 1. COPD with acute exacerbation and acute respiratory failure. 2. Congestive heart failure. 3. Severe rheumatoid arthritis. 4. Narcotic dependence. 5. Patient also was on anxiolytic agents on a regular basis. 6. 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 Kelley and Dr. Jimenez. She had finished her radiation therapy. 7. Overall prognosis is poor. We will continue with the current management. 8. She is on IV vanc as well as Solu-Medrol IV Zosyn and Lasix. cc: Merrick Becerril MD
[2018-12-03] MEDS: LASIX IV SCH (09:49)
[2018-12-03] MEDS: SODIUM CHLORIDE 0.9% INJ SCH (09:50)
[2018-12-03] MEDS: PROTONIX IV SCH (09:50)
--- NOTE | 2018-12-03 10:02 | EKG Report ---
Test Performed on : 12/03/2018 09:55:24 AM Test Reason : Tachycardia Blood Pressure : / mmHG Vent. Rate : 129 BPM Atrial Rate : 129 BPM P-R Int : 140 ms QRS Dur : 090 ms QT Int : 306 ms P-R-T Axes : 059 012 030 degrees QTc Int : 448 ms Sinus tachycardia. with premature atrial complexes. Otherwise normal ECG When compared with ECG of 01-DEC-2018 07:22, (Unconfirmed) premature atrial complexes. are now present [place] interval has decreased Right bundle branch block is no longer present Criteria for Inferior infarct are no longer present Confirmed by Drew LORENZO, Thiago Colon ([id number]) on 12/03/2018 12:49:24 PM
[2018-12-03] MEDS: LOPRESSOR IV PRN (11:50)
--- NOTE | 2018-12-03 14:55 | CARDIOLOGY CONSULTATION ---
DATE: 12/03/2018 CHIEF COMPLAINT ON PRESENTATION: Shortness of breath. HISTORY OF PRESENT ILLNESS: Ms. Jones is a 73-year-old, white female with a history of lung cancer followed by Dr. Jimenez as well as Dr. Kelley. Apparently, she has been receiving radiation therapy. She has been having more trouble with shortness of breath lately and has had some issues with cough. Apparently, her breathing became much worse yesterday evening and she was brought to the ER for further evaluation. Ultimately, she may have had some issues with PEA during the hospitalization. She had brief ACLS protocol performed, subsequently was intubated and regained a perfusing rhythm. Currently, she appears to be in sinus tachycardia on the ventilator, not responsive to verbal stimuli but does grimace to painful stimuli. PAST MEDICAL HISTORY: 1. Significant for bouts of pneumonia, most recent in September of 2018. 2. Lung cancer, currently on x-ray therapy. 3. COPD. 4. Breast cancer with right mastectomy. SOCIAL HISTORY: Unable to be obtained secondary to the patient's current intubated status. FAMILY HISTORY: Unable to be obtained secondary to the patient's current intubated status. REVIEW OF SYSTEMS: Unable to be obtained secondary to the patient's current intubated status. PHYSICAL EXAMINATION: She has been febrile this hospitalization as high as 101.1. Heart rates most recently have been in the 120s to 130s, with a blood pressure of 151/95. General: She is in no acute distress. She is currently on the ventilator. Grimaces to physical stimuli. HEENT: Oropharynx moist. Poor dentition. Eye examination shows pink conjunctivae and white sclerae. Neck: Examination shows no obvious thyromegaly or thyroid tenderness. Cardiovascular: She sounds to be in a tachycardic and regular rhythm. Telemetry currently shows what appears to be sinus tachycardia. She has no lower extremity edema. She has warm and well perfused lower extremities. Her chest exam is very difficult. Mechanical breath sounds are heard throughout. She has decreased breath sounds in the bases from the anterior and axillary positions. Abdomen: Soft, nontender, nondistended. She has no obvious organomegaly. Skin Examination: Warm and dry throughout without any rashes. Neurologic and psychiatric examinations are somewhat compromised secondary to the patient's current intubated status. PERTINENT DATA: Her CTA of her chest demonstrated multiple right rib fractures, large right pleural effusion with marked atelectasis, small left pleural effusion, cardiomegaly. No evidence of pulmonary emboli. EKGs reviewed by me. The initial was done on the at 7:22 a.m. showing what appears to be sinus rhythm. She had very small P-waves, a right bundle branch block. Does not appear to have anything acute, possible inferior infarct. Subsequent EKG on the at 9:55 appears to show sinus tachycardia with PACs, narrow complex. No clear sign of inferior Q-waves. Original white count on the was 32 and subsequently is 19. Hematocrit today is 26. Initial was 30. On presentation, platelet count was 243,000. She has a significant left shift at 94% with 2% bands. Her ABG today shows a pH of 7.42, pCO2 of 46, her PO2 was 61. Her AA gradient was 167. Her sodium is 147, potassium is 3.6, BUN 18, creatinine 0.7. Her proBNP is 1361 on presentation. It is subsequently 4543. Her initial lactate was 5.8. ASSESSMENT: Ms. Jones is a 73-year-old female who presented with acute respiratory failure, signs of sepsis/septic shock. PLAN: We will check an echocardiogram. Currently, most likely reason for the patient's respiratory issues are complications related to her cancer and XRT, likely a possible postobstructive pneumonia. If her ejection fraction is normal, then the possibility that her pulmonary edema is noncardiogenic and possibly related to ARDS. At this point, we will await the results of her echocardiogram. cc: MD Merrick Lindsey MD
[2018-12-03] MEDS ORDERED: VANCOMYCIN 1,300 MG in NS 250 ML IV SCH (15:00)
[2018-12-03] MEDS: VANCOMYCIN 1,300 MG in NS 250 ML IV SCH (15:38)
[2018-12-03] MEDS: MORPHINE IV PRN (15:58)
[2018-12-03] MEDS: XOPENEX NEB INH PRN (19:26)
[2018-12-04] MEDS: DIPRIVAN 1% 1,000 MG/100 ML BOTTLE IV SCH (01:53)
[2018-12-04] MEDS: XOPENEX NEB INH PRN ×5 (03:25→19:40)
[2018-12-04] MEDS: NS 1,000 ML IV SCH ×3 (05:49→13:45)
[2018-12-04] MEDS: SOLU-MEDROL IV SCH ×4 (05:49→22:29)
[2018-12-04] MEDS: ZOSYN 3.375 GM in NS 50 ML IV SCH ×3 (05:49→20:47)
[2018-12-04 05:53] LABS: ALLEN TEST YES; BE 8.9 mmoll (-3.0-3.0); BLOOD TYPE ARTERIAL; HCO3-(ACT) 31.9 mmoll (20.0-26.0); METHB 1.5 % (0.0-1.5); O2(CT) 11.8 mL/dL (15.0-23.0); O2HB 96.6 % (95.0-99.0); PCO2(98.6) 41 mmHg (35-45); PO2(98.6) 122 mmHg (60-100); SAMPLE BLOOD; SRATE 12 BPM; THB 8.5 g/dL (11.5-17.4); TVOL 500 mL; pH(98.6) 7.51 (7.35-7.45)
[2018-12-04 06:04] LABS: MODALITY VENTILATOR
[2018-12-04 06:06] LABS: AGAP 10; BUN 22 mg/dL (8-22); CALCIUM 7.5 mg/dL (8.8-10.2); CHLORIDE 108 mmol/L (98-107); COSMO 297; CREATININE 0.6 mg/dL (0.5-0.9); GLUCOSE 149 mg/dL (70-104); SODIUM 146 mmol/L (136-145); TCO2 28 mmol/L (25-35)
[2018-12-04 06:13] LABS: BASO# 0.01 X1000 (0.0-0.2); BASO% 0.1 % (0.0-0.8)
[2018-12-04 06:33] LABS: EOS# 0.01 X1000 (0.0-0.7); EOS% 0.1 % (0.0-10.0); HEMATOCRIT 24.4 % (37.0-47.0); IMM GRAN% 1.2 % (0.0-0.5); LYMPH% 1.2 % (20.5-51.1); MCHC 32.8 g/dL (33-37); MCV 109.9 FL (81-99); MONO# 1.06 X1000 (0.11-0.59); MONO% 6.3 % (1.7-9.3); MPV 10.2 FL (7.4-10.4); NEUT# 15.47 X1000 (1.4-6.5); NEUT% 91.1 % (42.2-75.2); PLT 250 X1000 (130-400); RBC 2.22 XMIL (4.2-5.4); RDW 14.6 % (11.5-14.5); WBC 16.95 X1000 (4.8-10.8)
[2018-12-04 07:02] LABS: BANDS 2 % (0-1); LYMPHS 6 % (21-51); MONO 2 % (1-9); SEGS 90 % (42-75)
--- NOTE | 2018-12-04 07:12 | Diag Imaging Result Doc PS360 ---
EXAM: CHEST-1 VIEW HISTORY: SOB TECHNIQUE: Portable chest single view COMPARISON: 12/03/2018 FINDINGS: No change in the endotracheal tube or nasogastric tube. There are [id number] sized bilateral pleural effusions with basilar atelectasis. Patient rotated to the left. Heart is prominent and there is pulmonary edema. IMPRESSION: No interval improvement. Electronically signed by Andrew Weiss 12/04/2018 7:10 AM
--- NOTE | 2018-12-04 07:45 | HEMO/ONC CONSULTATION ---
DATE: 12/03/2018 CHIEF COMPLAINT: We are being consulted for further management of a patient with lung cancer. HISTORY OF PRESENT ILLNESS: Ms. Jones is a 73-year-old female who presented to the emergency department on 12/01/2018 complaining of increased amounts of shortness of breath. The patient has a significant history of COPD, is an ex-smoker, as well as CHF. The patient presented to the emergency department with complaint of fever, respiratory distress, failure, and she was clammy and diaphoretic and in the emergency department was intubated and placed on ventilator due to respiratory distress. The patient also had a period of cardiac arrest where CPR was performed, and return of spontaneous circulation was obtained. Currently, patient is on the ventilator and does not respond to verbal stimuli, but has grimace to painful stimuli. Ms. Jones is known to us from our clinic. She follows up for her T1aN0 infiltrating right breast cancer. She is status post right mastectomy in 03/2007. The patient also is following up for her T1N0M0 right lower lobe lung cancer. She is status post radiation as of 06/2017. PET scan of 05/2018 revealed right subcarinal node with SUV of 16.8. She underwent an endobronchial ultrasound and biopsy which revealed squamous cell carcinoma. She received radiation x6 weeks from Dr. Jimenez. Her most recent PET scan on 10/17/2018 showed improved metabolic activity in the subcarinal node and right axillary node. There was no need for any further treatment at that time. PAST MEDICAL HISTORY: Significant for: 1. Pneumonia. 2. COPD. 3. Lung cancer. 4. Right mastectomy. 5. Hysterectomy. 6. Cholecystectomy. 7. Bilateral cataract surgery. SOCIAL HISTORY: Continues to smoke. Denies any alcohol or illicit drug use. FAMILY HISTORY: Noncontributory. ALLERGIES: Allergic to naproxen. HOME MEDICATIONS: 1. Elavil. 2. DuoNeb. 3. Aspirin. 4. Vitamin B12. 5. Lexapro. 6. Pepcid. 7. Trelegy. 8. Folic acid. 9. Ativan. 10. Methotrexate. 11. Nicotine patches. 12. Percocet. 13. MiraLax. 14. Potassium. 15. Prednisone. REVIEW OF SYSTEMS: Negative other than in the HPI. PHYSICAL EXAMINATION: Vital Signs: Temperature of 100.0 degrees, heart rate of 109, respiratory rate 24, blood pressure 138/92, and he is saturating 97% on mechanical ventilation. General: Patient intubated, currently on ventilator, grimaces with physical stimuli. HEENT: Anicteric. Mucous membranes are noted to be moist. Neck: Supple. Trachea midline. No JVD. Lymph Node Survey: No palpable lymphadenopathy. Cardiovascular: S1, S2. Increased rate and rhythm. Chest: Bilateral breath sounds heard throughout, decreased bilaterally. Abdomen: Soft, nontender, nondistended. Bowel sounds present in all 4 quadrants. Skin: Warm, dry, and intact. Neurological: Patient intubated; unable to assess. LABORATORY DATA: White cell count 19.85, hemoglobin 8.4, hematocrit 26.7, platelets are 243. Potassium 3.6, BUN 18, creatinine 0.7. ASSESSMENT AND PLAN: 1. Recurrent lung cancer: The patient is status post radiation. PET scan on 10/17/2018 showed improved metabolic activity. There was no further treatment needed at that time. Continue to monitor. 2. Chronic obstructive pulmonary disease with acute exacerbation and acute respiratory failure: Continue recommendations per primary team and Pulmonology. 3. Congestive heart failure: Continue recommendations per Cardiology. 4. Anemia: Hemoglobin 8.4, hematocrit 26.7. Continues to be stable. Will just continue to monitor and transfuse as needed. 5. Plan of care discussed with Dr. Kelley. Dictated by BELTRAN Rosales for Celio Kelley MD cc: BELTRAN Rosales MD Amit V. Vora, MD
[2018-12-04] MEDS: LASIX IV SCH (08:21)
[2018-12-04] MEDS: POTASSIUM CHLORIDE 20% LIQUID PO SCH ×2 (08:22→12:04)
[2018-12-04] MEDS: HALDOL IV PRN (08:24)
[2018-12-04] MEDS: MORPHINE IV PRN ×4 (08:40→20:47)
[2018-12-04] MEDS: LOPRESSOR IV PRN ×2 (08:50→13:42)
--- NOTE | 2018-12-04 09:48 | HEMO/ONC PROGRESS NOTE ---
DATE: 12/04/2018 SUBJECTIVE: The patient continues to be intubated. OBJECTIVE: Vital Signs: Temperature 98.7 degrees, heart rate 94, respiratory 14, blood pressure 136/76, satting 97% on mechanical ventilation. General: Patient is lying in bed, intubated. HEENT: Anicteric. Mucous membranes appear to be moist. Chest: Bilateral breath sounds bilaterally. Cardiovascular: S1, S2. Regular rate and rhythm. Abdomen: Soft, nontender. Bowel sounds present in all 4 quadrants. Skin: Warm, dry and intact. Neurological: Intubated. Unable to assess. LABORATORY DATA: White cell count 3.95, hemoglobin 8.2, hematocrit 24.4, platelets are 250. Potassium 3.0, BUN 22, creatinine 0.6. ASSESSMENT AND PLAN: 1. Recurrent Lung cancer: The patient is status post radiation. No new treatment at this time. Continue to monitor. 2. Chronic obstructive pulmonary disease with acute exacerbation, acute respiratory failure: Continue to be followed by primary and Pulmonology. 3. Congestive heart failure: Continue recommendations per Cardiology. 4. Anemia: Hemoglobin and hematocrit is 8.0 and 24.4. Continues to be stable. Continue to monitor at this time. Transfuse as needed. Plan of care discussed with Dr. Kelley. Dictated by BELTRAN Rosales for Celio Kelley MD Patient seen and examined. Dr. Steele by bedside. Patient apparently doing better and there are plans for weaning and extubation. Recurrent lung cancer status post radiation to the mediastinal lymph nodes which completed approximately 3 months ago with subsequent PET scan in 09/2018 revealing improved metabolic activity. Continue current management for COPD exacerbation and respiratory failure. Transfuse as needed. No further thoughts from my standpoint. I will sign off. Please call with questions. Celio Kelley M.D. [facility]
[2018-12-04] MEDS: PROTONIX IV SCH (10:02)
--- NOTE | 2018-12-04 10:04 | PROGRESS NOTE ---
DATE: 12/04/2018 Ms. Jones had some respiratory distress. She is at present being weaned off of the anti-anxiety as well as pain medications so we can see if we can wean her on the ventilator. We just gave her some morphine. She is very restless. She is on Haldol. She has some respiratory distress at the present time. CBC was unremarkable except for anemia. Hemoglobin is 8 g. This morning arterial blood gases were satisfactory with the vent. Electrolytes are stable with potassium of 3.0. Prognosis is guarded. I discussed that with the family members. cc: Merrick Becerril MD
[2018-12-04] MEDS: PRECEDEX 200 MICROGM in NS 48 ML IV SCH ×4 (10:47→22:35)
[2018-12-04 10:53] LABS: ALLEN TEST YES; BE 8.9 mmoll (-3.0-3.0); BLOOD TYPE ARTERIAL; HCO3-(ACT) 31.8 mmoll (20.0-26.0); METHB 0.7 % (0.0-1.5); O2(CT) 12.3 mL/dL (15.0-23.0); O2HB 94.2 % (95.0-99.0); PCO2(98.6) 41 mmHg (35-45); PO2(98.6) 67 mmHg (60-100); SAMPLE BLOOD; SAO2 96.9 % (95.0-100.0); THB 9.2 g/dL (11.5-17.4); pH(98.6) 7.51 (7.35-7.45)
[2018-12-04 10:54] LABS: MODALITY VENTILATOR
[2018-12-04] MEDS: VANCOMYCIN 1,800 MG in NS 250 ML IV SCH (17:41)
--- NOTE | 2018-12-04 21:34 | CARDIOLOGY PROGRESS NOTE ---
DATE: 12/04/2018 SUBJECTIVE: Ms. Jones has been extubated. She is able to answer questions somewhat. She does have a little bit of labored breathing presently, but she is mentating adequately. She does not appear to have been febrile over the last 24 hours. OBJECTIVE: General: She is in no acute distress. Again some mildly labored breathing but right now she is on face mask saturating well. Heart rate 96, blood pressure 138/82. Cardiovascular: She sounds to be in a regular rate and rhythm. Telemetry currently shows sinus. She has no lower extremity edema. Chest: Exam is coarse breath sounds diffusely. Mild increased work of breathing. Abdomen: Soft, nontender. PERTINENT DATA: Her white count is 16.95 with a left shift and a slight bandemia. Her ABG was reviewed. Her AA gradient is stable over the last few days it looks like. Her sodium is 146, potassium is 3. Her echocardiogram was reviewed by me and seems to show a preserved ejection fraction. ASSESSMENT: Ms. Jones is a 73-year-old female who presented in septic shock. PLAN: I do not see any evidence for congestive heart failure presently. She certainly seems to have an infectious issue going on with her markedly elevated white count and febrile issues along with her respiratory issues. If we can be of further assistance with this patient, please do not hesitate to ask. cc: MD Merrick Lindsey MD
[2018-12-05] MEDS: NS 1,000 ML IV SCH ×4 (00:33→23:01)
[2018-12-05] MEDS: PRECEDEX 200 MICROGM in NS 48 ML IV SCH ×2 (01:18→06:16)
[2018-12-05] MEDS: SOLU-MEDROL IV SCH ×4 (03:59→22:49)
[2018-12-05] MEDS: ZOSYN 3.375 GM in NS 50 ML IV SCH ×3 (04:00→20:59)
[2018-12-05 04:35] LABS: ALLEN TEST YES; BE 7.1 mmoll (-3.0-3.0); BLOOD TYPE ARTERIAL; HCO3-(ACT) 30.4 mmoll (20.0-26.0); METHB 1.3 % (0.0-1.5); O2(CT) 11.6 mL/dL (15.0-23.0); O2HB 92.2 % (95.0-99.0); PCO2(98.6) 42 mmHg (35-45); PO2(98.6) 66 mmHg (60-100); SAMPLE BLOOD; SAO2 95.2 % (95.0-100.0); THB 8.9 g/dL (11.5-17.4); pH(98.6) 7.48 (7.35-7.45)
[2018-12-05 04:42] LABS: MODALITY BI PAP
[2018-12-05 04:54] LABS: BASO# 0.01 X1000 (0.0-0.2); BASO% 0.1 % (0.0-0.8); HEMATOCRIT 24.9 % (37.0-47.0); HEMOGLOBIN 7.9 g/dL (12.0-16.0); IMM GRAN% 1.3 % (0.0-0.5); LYMPH# 0.33 X1000 (1.2-3.4); LYMPH% 2.2 % (20.5-51.1); MCH 35.1 PG (27-31); MCHC 31.7 g/dL (33-37); MCV 110.7 FL (81-99); MONO# 1.08 X1000 (0.11-0.59); MONO% 7.1 % (1.7-9.3); MPV 9.8 FL (7.4-10.4); NEUT# 13.52 X1000 (1.4-6.5); NEUT% 89.3 % (42.2-75.2); PLT 228 X1000 (130-400); RBC 2.25 XMIL (4.2-5.4); RDW 14.9 % (11.5-14.5); WBC 15.14 X1000 (4.8-10.8)
[2018-12-05 05:41] LABS: AGAP 10; BUN 28 mg/dL (8-22); CALCIUM 7.8 mg/dL (8.8-10.2); CHLORIDE 112 mmol/L (98-107); COSMO 304; CREATININE 0.6 mg/dL (0.5-0.9); ESTIMATED GFR > 60; GLUCOSE 138 mg/dL (70-104); POTASSIUM 3.6 mmol/L (3.5-5.1); SODIUM 149 mmol/L (136-145); TCO2 27 mmol/L (25-35)
[2018-12-05 06:19] LABS: MONO 4 % (1-9); SEGS 96 % (42-75)
--- NOTE | 2018-12-05 07:16 | Diag Imaging Result Doc PS360 ---
EXAM: CHEST-1 VIEW INDICATION: SOB TECHNIQUE: One view COMPARISON: 12/04/2018 FINDINGS: The NG tube and ET tube have been removed. Pleural effusion on the right has decreased slightly in size. This may be positional. The left effusion is stable. Pulmonary edema is unchanged. Cardiac silhouette is stable. IMPRESSION: Slight decrease in right pleural effusion. Electronically signed by Castro Pryor 12/05/2018 7:14 AM
[2018-12-05] MEDS: XOPENEX NEB INH PRN ×5 (08:06→23:30)
[2018-12-05] MEDS: LASIX IV SCH (09:15)
--- NOTE | 2018-12-05 09:38 | PROGRESS NOTE ---
DATE: 12/05/2018 Ms. Jones is much more alert today. Her lungs still sound congested. Arterial blood gases revealed a pH of 7.48, pCO2 of 42, PO2 of 66. She had just finished her BiPAP. CBC shows white count of 15.14 and electrolyte status is normal. Potassium has come back up to 3.6, BUN 28, creatinine 0.2. Continue with the current management. Put her on clear liquids today. -6 cc: Merrick Becerril MD
[2018-12-05] MEDS: MORPHINE IV PRN ×5 (10:13→20:55)
[2018-12-05] MEDS: PROTONIX IV SCH (10:42)
[2018-12-05] MEDS ORDERED: ATIVAN IV PRN (13:30)
[2018-12-05] MEDS: LOPRESSOR IV PRN ×3 (14:50→23:14)
[2018-12-05] MEDS: HALDOL IV PRN (14:53)
--- NOTE | 2018-12-05 14:59 | EKG Report ---
Test Performed on : 12/05/2018 2:53:48 PM Test Reason : tachycardia Blood Pressure : / mmHG Vent. Rate : 113 BPM Atrial Rate : 113 BPM P-R Int : 152 ms QRS Dur : 086 ms QT Int : 348 ms P-R-T Axes : 054 013 046 degrees QTc Int : 477 ms Sinus tachycardia. with premature atrial complexes. Junctional ST depression, probably normal Borderline ECG When compared with ECG of 03-DEC-2018 09:55, No significant change was found Confirmed by Drew LORENZO, Thiago Colon ([id number]) on 12/07/2018 10:52:59 AM
[2018-12-05] MEDS: APRESOLINE IV PRN ×2 (15:41→20:44)
[2018-12-05] MEDS ORDERED: MORPHINE IV PRN (16:26)
[2018-12-05] MEDS ORDERED: ATIVAN IV ONE (16:27)
[2018-12-05] MEDS: VANCOMYCIN 1,800 MG in NS 250 ML IV SCH (18:00)
[2018-12-05] MEDS ORDERED: CARDIZEM IV ONE (18:17)
[2018-12-05] MEDS: CARDIZEM 125/NS 125 MG/125 ML IVPB IV SCH (18:54)
[2018-12-05] MEDS: ATIVAN IV PRN ×2 (19:53→22:10)
--- NOTE | 2018-12-05 20:41 | PROGRESS NOTE ---
DATE: 12/05/2018 Ms. Jones at some withdrawal from Ativan and narcotics as she has been on Percocet. She became more restless. She has been in atrial fibrillation with rapid ventricular response. Ventricular rate has gone up to 180. She is somewhat restless. She was given Ativan earlier. Cardiology was contacted, and we are going to start IV Cardizem. her overall condition is otherwise unchanged. cc: Merrick Becerril MD MTDD
[2018-12-05] MEDS: LASIX IV ONE (23:00)
[2018-12-05] MEDS ORDERED: NS 1,000 ML IV SCH (23:07)
[2018-12-06] MEDS: LASIX IV ONE (00:53)
[2018-12-06] MEDS: ATIVAN IV PRN ×5 (01:03→13:33)
[2018-12-06] MEDS: XOPENEX NEB INH PRN ×4 (03:13→15:38)
[2018-12-06] MEDS: SOLU-MEDROL IV SCH ×4 (03:40→20:02)
[2018-12-06] MEDS: MORPHINE IV PRN ×5 (03:45→22:12)
[2018-12-06] MEDS: ZOSYN 3.375 GM in NS 50 ML IV SCH ×3 (03:46→20:01)
[2018-12-06 04:29] LABS: BLOOD TYPE ARTERIAL; SAMPLE BLOOD
[2018-12-06 04:30] LABS: ALLEN TEST YES; BE 8.9 mmoll (-3.0-3.0); HCO3-(ACT) 31.8 mmoll (20.0-26.0); METHB 1.3 % (0.0-1.5); MODALITY BI PAP; O2(CT) 13.3 mL/dL (15.0-23.0); PCO2(98.6) 49 mmHg (35-45); PO2(98.6) 67 mmHg (60-100); SAO2 95.3 % (95.0-100.0); THB 10.2 g/dL (11.5-17.4); pH(98.6) 7.45 (7.35-7.45)
[2018-12-06 05:17] LABS: BASO# 0.05 X1000 (0.0-0.2); BASO% 0.2 % (0.0-0.8); HEMATOCRIT 30.6 % (37.0-47.0); HEMOGLOBIN 9.6 g/dL (12.0-16.0); IMM GRAN# 0.52 X1000 (0.0-0.04); LYMPH# 0.67 X1000 (1.2-3.4); LYMPH% 2.6 % (20.5-51.1); MCH 35.2 PG (27-31); MCHC 31.4 g/dL (33-37); MCV 112.1 FL (81-99); MONO# 1.38 X1000 (0.11-0.59); MONO% 5.4 % (1.7-9.3); MPV 9.9 FL (7.4-10.4); NEUT# 22.93 X1000 (1.4-6.5); NEUT% 89.8 % (42.2-75.2); PLT 271 X1000 (130-400); RBC 2.73 XMIL (4.2-5.4); RDW 15.2 % (11.5-14.5); WBC 25.55 X1000 (4.8-10.8)
[2018-12-06 05:18] LABS: AGAP 12; BUN 31 mg/dL (8-22); CHLORIDE 108 mmol/L (98-107); COSMO 306; CREATININE 0.7 mg/dL (0.5-0.9); ESTIMATED GFR > 60; GLUCOSE 133 mg/dL (70-104); POTASSIUM 3.5 mmol/L (3.5-5.1); SODIUM 150 mmol/L (136-145); TCO2 30 mmol/L (25-35)
[2018-12-06] MEDS: CARDIZEM 125/NS 125 MG/125 ML IVPB IV SCH ×2 (06:01→15:03)
--- NOTE | 2018-12-06 07:55 | Diag Imaging Result Doc PS360 ---
EXAM: CHEST-1 VIEW INDICATION: SOB TECHNIQUE: One view COMPARISON: 12/05/2018 FINDINGS: Bilateral pleural effusions, larger on the right with adjacent atelectasis and/or infiltrate are stable. No new consolidation is identified. Cardiac silhouette is stable. IMPRESSION: Stable chest. Electronically signed by Castro Pryor 12/06/2018 7:53 AM
[2018-12-06] MEDS: PROTONIX IV SCH (09:26)
[2018-12-06] MEDS: LASIX IV SCH (09:26)
--- NOTE | 2018-12-06 09:52 | ECHO REPORT ---
ORDER DATE: 12/03/2018 INTERPRETING PHYSICIAN: Dr. Al Lezama. ECHOCARDIOGRAPHIC MEASUREMENTS: 1. Interventricular septum: 0.7 cm. 2. Left ventricular posterior wall: 0.8 cm. 3. Diastolic diameter: 5.5 cm. 4. Left atrium: 3.8 cm. 5. Aorta: 3.4 cm. SUMMARY OF THE 2-DIMENSIONAL IMAGIN. The aortic valve leaflets are mildly sclerosed, trileaflet, opening normally. 2. Pulmonic valve was normal. There is trace pulmonary regurgitation. 3. Mitral valve was normal. 4. Tricuspid valve was normal. 5. There is mitral annular calcification. 6. Normal left ventricular cavity size. Estimated ejection fraction of 60-65%. However, tachycardia was noted. This could overestimate the ejection fraction. 7. There is mild mitral regurgitation. 8. Peak velocity across the aortic valve less than 2 m/sec. There is no aortic stenosis or regurgitation. 9. There is mild tricuspid regurgitation. Peak velocity across the tricuspid valve was 2.9 m/sec. 10. Pulmonary artery systolic pressure of 43 mmHg. 11. There is no pericardial effusion or obvious intracardiac mass or thrombus seen. Anterior echo- free space suggestive of pericardial fat pad noted. cc: MD Kristy Mari PA Amit V. Vora, MD
--- NOTE | 2018-12-06 10:24 | PROGRESS NOTE ---
DATE: 12/06/2018 At present, she is on IV Cardizem. She was given Ativan last night several times. Her heart rate is around 110. Blood pressure is normal. O2 saturation is 95. She is on BiPAP. She opens her eyes. She is slightly alert. CBC shows white count 25.55. Hemoglobin is 9.6. Arterial blood gases are satisfactory with pH 7.45, PCO2 49, O2 of 67 and lactate level is 1.1. Potassium was 3.5. Repeat chest x-ray done this morning shows stable chest with bilateral pleural effusion. Overall condition is still guarded. We are going to continue with the current management. cc: Merrick Becerril MD
[2018-12-06] MEDS: 1/2 NS 1,000 ML IV SCH (11:15)
--- NOTE | 2018-12-06 13:05 | CARDIOLOGY PROGRESS NOTE ---
DATE: 12/06/2018 SUBJECTIVE: Ms. Jones is sedated. She is on BiPAP. She is not following commands. OBJECTIVE: Vital Signs: The patient is afebrile. Her heart rate is 98. Telemetry currently shows sinus. Blood pressure 142/78. General: She is in no acute distress. Cardiovascular: She is in a regular rate and rhythm. Again, telemetry shows sinus. Extremities: She has no lower extremity edema. Warm and well-perfused extremities. Chest: Coarse diffuse breath sounds. No increased work of breathing. Abdomen: Soft, nontender. PERTINENT LABORATORY DATA: Her white count is increased to 25 from 15 yesterday, her hematocrit is 30, her platelet count is 271. Her AA gradient is stable at 157. Her FiO2 as well is stable at 40%. Sodium is 150, potassium 3.5, BUN 31, creatinine 0.7. ASSESSMENT: Ms. Jones is a 73-year-old female who presented with septic shock. PLAN: It appears that she is more volume contracted based on her elevated sodium today. She has probably had episodes of atrial fibrillation during this hospitalization. At this point, I would hold off of anticoagulation given her comorbidities. We may consider starting in the future. She had an echocardiogram performed this hospitalization. I had reviewed it earlier in the hospitalization, showing a preserved EF, but I do not see the report back as of yet. We will follow up on this. cc: MD Merrick Lindsey MD
--- NOTE | 2018-12-06 13:42 | EKG Report ---
Test Performed on : 12/05/2018 6:12:45 PM Test Reason : HR 160s Blood Pressure : / mmHG Vent. Rate : 152 BPM Atrial Rate : 141 BPM P-R Int : 000 ms QRS Dur : 080 ms QT Int : 314 ms P-R-T Axes : 000 037 026 degrees QTc Int : 499 ms Atrial fibrillation. with rapid ventricular response. Nonspecific ST abnormality Abnormal ECG When compared with ECG of 05-DEC-2018 16:48, (Unconfirmed) Atrial fibrillation. has replaced Sinus rhythm. Confirmed by Drew LORENZO, Thiago Colon ([id number]) on 12/07/2018 10:53:15 AM
[2018-12-06] MEDS: LOPRESSOR IV PRN (14:02)
[2018-12-06] MEDS: VANCOMYCIN 1,800 MG in NS 250 ML IV SCH (17:12)
[2018-12-06] MEDS: APRESOLINE IV PRN (20:01)
[2018-12-06] MEDS: HALDOL IV PRN (21:09)
[2018-12-06] MEDS: CARDIZEM 125 MG in NS 100 ML IV SCH (22:13)
[2018-12-07] MEDS: ATIVAN IV PRN ×3 (04:01→23:21)
[2018-12-07] MEDS: SOLU-MEDROL IV SCH ×4 (04:02→22:29)
[2018-12-07] MEDS: ZOSYN 3.375 GM in NS 50 ML IV SCH ×3 (04:02→19:45)
[2018-12-07] MEDS: 1/2 NS 1,000 ML IV SCH (04:03)
[2018-12-07] MEDS: LOPRESSOR IV PRN (04:08)
[2018-12-07 04:48] LABS: ALLEN TEST YES; BE 9.3 mmoll (-3.0-3.0); BLOOD TYPE ARTERIAL; HCO3-(ACT) 32.2 mmoll (20.0-26.0); METHB 1.9 % (0.0-1.5); O2(CT) 10.6 mL/dL (15.0-23.0); O2HB 95.2 % (95.0-99.0); PCO2(98.6) 44 mmHg (35-45); PO2(98.6) 100 mmHg (60-100); SAMPLE BLOOD; SAO2 100.5 % (95.0-100.0); THB 7.8 g/dL (11.5-17.4); pH(98.6) 7.49 (7.35-7.45)
[2018-12-07 04:49] LABS: MODALITY BI PAP
[2018-12-07 04:58] LABS: BASO# 0.04 X1000 (0.0-0.2); BASO% 0.1 % (0.0-0.8); HEMATOCRIT 31.7 % (37.0-47.0); HEMOGLOBIN 9.9 g/dL (12.0-16.0); IMM GRAN# 0.55 X1000 (0.0-0.04); IMM GRAN% 1.9 % (0.0-0.5); LYMPH# 0.65 X1000 (1.2-3.4); LYMPH% 2.2 % (20.5-51.1); MCH 35.9 PG (27-31); MCHC 31.2 g/dL (33-37); MCV 114.9 FL (81-99); MONO# 0.87 X1000 (0.11-0.59); MPV 9.7 FL (7.4-10.4); NEUT% 92.8 % (42.2-75.2); PLT 255 X1000 (130-400); RBC 2.76 XMIL (4.2-5.4); RDW 15.9 % (11.5-14.5); WBC 29.21 X1000 (4.8-10.8)
[2018-12-07 05:02] LABS: AGAP 11; BUN 35 mg/dL (8-22); CALCIUM 8.5 mg/dL (8.8-10.2); CHLORIDE 110 mmol/L (98-107); COSMO 313; CREATININE 0.7 mg/dL (0.5-0.9); ESTIMATED GFR > 60; GLUCOSE 160 mg/dL (70-104); POTASSIUM 3.6 mmol/L (3.5-5.1); SODIUM 152 mmol/L (136-145); TCO2 31 mmol/L (25-35)
[2018-12-07] MEDS: CARDIZEM 125 MG in NS 100 ML IV SCH ×2 (05:03→16:41)
[2018-12-07] MEDS: MORPHINE IV PRN ×7 (05:03→22:28)
[2018-12-07] MEDS: APRESOLINE IV PRN (07:05)
[2018-12-07] MEDS: HALDOL IV PRN (07:05)
--- NOTE | 2018-12-07 07:28 | Diag Imaging Result Doc PS360 ---
EXAM: CHEST-1 VIEW INDICATION: SOB TECHNIQUE: One view COMPARISON: 12/06/2018 FINDINGS: Bilateral pleural effusions are approximately stable. There has been improvement of the adjacent infiltrate at the right lower lung zone during the interval. No new consolidation is identified. Cardiac silhouette is stable. IMPRESSION: Interval improvement on the right. Stable chest, otherwise. Electronically signed by Castro Pryor 12/07/2018 7:26 AM
[2018-12-07] MEDS: PROTONIX IV SCH (08:12)
[2018-12-07] MEDS: LASIX IV SCH (08:12)
[2018-12-07] MEDS: XOPENEX NEB INH PRN ×3 (08:49→15:58)
[2018-12-07] MEDS ORDERED: D5 1/2 NS + KCL 10 MEQ 1,000 ML IV SCH (12:00)
[2018-12-07] MEDS: CLINIMIX E 4.25%-5% SOLUTION 1,000 ML IV SCH (12:31)
--- NOTE | 2018-12-07 12:53 | Extremity Venous Study ---
PROCEDURE NAME: Venous U/S Bilateral Legs - 12/01/2018 BILATERAL LOWER EXTREMITY VENOUS DUPLEX STUDY: REFERRING PHYSICIAN: Cedric. READING PHYSICIAN: Darian. RISK TECH: Thomas. INDICATION: Rule out DVT. FINDINGS: The deep and superficial veins of both lower extremities were imaged throughout their course. They are compressible, patent and without thrombus. INTERPRETATION: No DVT or SVT of either lower extremity. cc: MD Hector Jay MD Amit V. Vora, MD
--- NOTE | 2018-12-07 13:51 | PROGRESS NOTE ---
DATE: 12/07/2018 SUBJECTIVE: Ms. Jones still has respiratory distress. She continues to be in atrial fibrillation, has rapid ventricular rate. She is on Cardizem drip. She is also getting IV Ativan as well as IV morphine. We will start her on Clinimix for her electrolytes. OBJECTIVE: Her white count is 79.21. Electrolytes reveal potassium of 3.6, sodium 152. Vancomycin level was 8.5. PLAN: We will start her on Clinimix today. We will give her about 40 mg Lasix IV daily. Overall prognosis is poor. -2 cc: Merrick Becerril MD
[2018-12-07] MEDS: D5W 1,000 ML IV SCH (14:47)
[2018-12-07] MEDS: VANCOMYCIN 1,800 MG in NS 250 ML IV SCH (17:46)
--- NOTE | 2018-12-07 19:36 | CARDIOLOGY PROGRESS NOTE ---
DATE: 12/07/2018 SUBJECTIVE: Ms. Jones opens her eyes and localizes to the examiner, but does not really follow commands. OBJECTIVE: Afebrile. Heart rates have been predominantly in the 110s recently. She appears to be in sinus tachycardia. Blood pressure 120/83. Generally, she is in no acute distress. Cardiovascularly she is in a tachycardic and regular rhythm, consistent with sinus tachycardia on telemetry. She has no lower extremity edema. She has warm and well-perfused extremities. Her chest exam has coarse breath sounds somewhat diffusely, with mild expiatory wheezes. She has mild usage of accessory muscles. Her abdomen is soft and nontender. DIAGNOSTIC DATA: Her chest x-ray today seemed to show a slight improvement of the infiltrate on the right. She had an electrocardiogram on 12/05 demonstrating what appears to be possible atrial fibrillation. LABORATORY DATA: Laboratory data shows an increase in her white count that has consistently trended up since 12/05 from 15, to 29 today. Her hematocrit is 31. Her platelet count is 255,000. Her ABG was reviewed. Her A-a gradient is 130, her FIO2 was 40%. Her sodium is 152, which is up some from 150 yesterday. Her BUN and creatinine are 35 and 0.7, respectively. ASSESSMENT: Ms. Jones is a 73-year-old female with a history of lung disease, who presents with sepsis/pneumonia and probable episodes of atrial fibrillation during this hospitalization. PLAN: Her rate is well controlled. She is in sinus tachycardia presently. I do not have any acute cardiovascular recommendations. She has a preserved ejection fraction by echocardiogram checked on 12/03. Notably, her sodium has steadily increased, suggesting intravascular volume depletion, as does her rising BUN and creatinine ratio. I would consider stopping the Lasix and trying her on a little bit of fluids. Notably, she had a marked urine output increase on 12/06. She had duplicated Lasix orders in, so I discontinued one of them. She has D5 half normal saline ordered by her primary physician today. I do not have any acute cardiovascular recommendations. cc: MD Merrick Lindsey MD
[2018-12-07] MEDS ORDERED: LASIX IV ONE (20:00)
--- NOTE | 2018-12-07 21:09 | PULMONOLOGY PROGRESS NOTE ---
DATE: 12/07/2018 SUBJECTIVE: The patient is awake. She does regard this practitioner. She is too weak to move her arms or speak. She has mild to moderate work of breathing. OBJECTIVE: Vital Signs: Blood pressure 135/87, heart rate 121, respiratory rate 15, oxygen saturation 94%. HEENT: Pupils are equal and reactive. Oropharynx appears clear. Neck: Supple. Chest: Reveals prolonged expiratory phase with decreased breath sounds in both lung bases. Cardiac exam: S1 and S2. Abdomen: Soft. Extremities: Reveal trace to 1+ peripheral edema. LABORATORIES: Chest x-ray reveals slight decreased infiltrates/effusion at the right base. White blood count 29,000, hemoglobin 9.9, platelet count 255,000. Arterial blood gas reveals a pH 7.49, pCO2 of 44, pO2 of 100, sodium 152, potassium 3.6, chloride 110, bicarbonate 31, BUN 35, creatinine 0.7. IMPRESSION: A 73-year-old with: 1. Acute hypoxemic respiratory failure. 2. Diastolic heart failure. 3. Pleural effusions. 4. Recurrent lung cancer, status post radiation therapy to the mediastinum. 5. Chronic obstructive pulmonary disease. RECOMMENDATIONS: 1. Continue to cycle BiPAP at bedtime and p.r.n. 2. Continue Clinimix for nutrition given patient's inability to take p.o. intake. 3. Add free water to her regimen given hypernatremia. 4. Diuresis as tolerated. 5. Overall prognosis is poor. End of life discussions have taken place, and she is a modified resuscitation. cc: MD Merrick Sellers MD
[2018-12-08] MEDS: MORPHINE IV PRN ×7 (00:31→19:24)
[2018-12-08] MEDS: CARDIZEM 125 MG in NS 100 ML IV SCH ×2 (03:22→13:45)
[2018-12-08] MEDS: SOLU-MEDROL IV SCH ×4 (03:33→20:25)
[2018-12-08] MEDS: ZOSYN 3.375 GM in NS 50 ML IV SCH ×3 (04:57→20:01)
[2018-12-08 05:06] LABS: BLOOD TYPE ARTERIAL; SAMPLE BLOOD
[2018-12-08 05:07] LABS: ALLEN TEST YES; BE 14.4 mmoll (-3.0-3.0); HCO3-(ACT) 36.2 mmoll (20.0-26.0); METHB 0.3 % (0.0-1.5); O2HB 97.8 % (95.0-99.0); PCO2(98.6) 49 mmHg (35-45); PO2(98.6) 133 mmHg (60-100); SAO2 100.3 % (95.0-100.0); pH(98.6) 7.51 (7.35-7.45)
[2018-12-08 05:08] LABS: MODALITY VENTILATOR
[2018-12-08 06:12] LABS: BASO# 0.05 X1000 (0.0-0.2); BASO% 0.2 % (0.0-0.8); HEMATOCRIT 31.6 % (37.0-47.0); HEMOGLOBIN 9.8 g/dL (12.0-16.0); IMM GRAN# 0.51 X1000 (0.0-0.04); IMM GRAN% 1.6 % (0.0-0.5); LYMPH# 0.54 X1000 (1.2-3.4); LYMPH% 1.7 % (20.5-51.1); MCH 35.9 PG (27-31); MCV 115.8 FL (81-99); MONO# 1.16 X1000 (0.11-0.59); MONO% 3.7 % (1.7-9.3); MPV 10.3 FL (7.4-10.4); NEUT# 29.41 X1000 (1.4-6.5); NEUT% 92.8 % (42.2-75.2); PLT 215 X1000 (130-400); RBC 2.73 XMIL (4.2-5.4); RDW 15.4 % (11.5-14.5); WBC 31.67 X1000 (4.8-10.8)
[2018-12-08] MEDS: D5W 1,000 ML IV SCH ×5 (06:23→22:24)
[2018-12-08 06:26] LABS: LYMPHS 2 % (21-51); MONO 3 % (1-9); SEGS 95 % (42-75)
[2018-12-08 06:37] LABS: AGAP 12; BUN 42 mg/dL (8-22); CALCIUM 8.4 mg/dL (8.8-10.2); CHLORIDE 108 mmol/L (98-107); COSMO 323; CREATININE 0.9 mg/dL (0.5-0.9); ESTIMATED GFR > 60; GLUCOSE 191 mg/dL (70-104); POTASSIUM 3.2 mmol/L (3.5-5.1); SODIUM 155 mmol/L (136-145); TCO2 35 mmol/L (25-35)
--- NOTE | 2018-12-08 07:08 | Diag Imaging Result Doc PS360 ---
EXAM: CHEST-1 VIEW 12/08/2018 HISTORY: SOB TECHNIQUE: AP portable at 0539 COMMENT: The inspiration is less optimal than on 12/07/2018. There is pleural thickening and/or loculated fluid on the right. There is atelectasis versus pneumonia in both lower lobes particularly the right lower lobe. There may be mild interstitial pulmonary edema. IMPRESSION: Mild pulmonary edema with atelectasis versus pneumonia particularly in the right lower lobe. Electronically signed by Kulwinder Denise 12/08/2018 7:05 AM
[2018-12-08] MEDS: PROTONIX IV SCH (08:13)
[2018-12-08] MEDS: XOPENEX NEB INH PRN ×3 (08:23→15:56)
[2018-12-08] MEDS ORDERED: LASIX IV SCH (09:00)
[2018-12-08] MEDS: CLINIMIX E 4.25%-5% SOLUTION 1,000 ML IV SCH (11:37)
[2018-12-08] MEDS: LOPRESSOR IV PRN (12:01)
[2018-12-08] MEDS: ATIVAN IV PRN ×2 (13:49→22:24)
[2018-12-08] MEDS: VANCOMYCIN 1,800 MG in NS 250 ML IV SCH (17:32)
--- NOTE | 2018-12-08 20:10 | PROGRESS NOTE ---
DATE: 12/08/2018 Heart rate 103 and irregular, atrial fibrillation, respirations 21, blood pressure 122/84, O2 saturation per mask 96%. According to nurse and family, she is more alert today. She was able to take some ice chips p.o. Chest x-ray showed left lower lobe infiltrate. She has responded well to Lasix IV. On admission, there had been a cardiorespiratory arrest. She is on limited code status. She continues to be on a Cardizem drip with fairly good control of rate. Antibiotics include vancomycin and Zosyn. PLAN: Recheck lab tomorrow. Continue IV nutrition with amino acids. cc: MD Merrick Berman MD
[2018-12-09] MEDS: MORPHINE IV PRN ×7 (03:02→22:43)
[2018-12-09] MEDS: ZOSYN 3.375 GM in NS 50 ML IV SCH ×3 (03:46→20:13)
[2018-12-09] MEDS: SOLU-MEDROL IV SCH ×4 (03:46→20:15)
[2018-12-09 04:29] LABS: ALLEN TEST YES; BE 16.3 mmoll (-3.0-3.0); BLOOD TYPE ARTERIAL; HCO3-(ACT) 37.6 mmoll (20.0-26.0); METHB 1.1 % (0.0-1.5); O2(CT) 12.8 mL/dL (15.0-23.0); O2HB 94.4 % (95.0-99.0); PO2(98.6) 79 mmHg (60-100); SAMPLE BLOOD; SAO2 97.9 % (95.0-100.0); THB 9.6 g/dL (11.5-17.4); pH(98.6) 7.44 (7.35-7.45)
[2018-12-09 04:35] LABS: MODALITY COOL AEROSOL; PCO2(98.6) 63 mmHg (35-45)
[2018-12-09] MEDS: D5W 1,000 ML IV SCH ×2 (05:02→13:12)
[2018-12-09 05:45] LABS: BASO# 0.03 X1000 (0.0-0.2); BASO% 0.1 % (0.0-0.8); HEMATOCRIT 30.9 % (37.0-47.0); HEMOGLOBIN 9.7 g/dL (12.0-16.0); IMM GRAN# 0.48 X1000 (0.0-0.04); IMM GRAN% 1.6 % (0.0-0.5); LYMPH% 1.3 % (20.5-51.1); MCH 35.3 PG (27-31); MCHC 31.4 g/dL (33-37); MCV 112.4 FL (81-99); MONO# 0.93 X1000 (0.11-0.59); MONO% 3.1 % (1.7-9.3); MPV 10.1 FL (7.4-10.4); NEUT# 28.33 X1000 (1.4-6.5); NEUT% 93.9 % (42.2-75.2); PLT 204 X1000 (130-400); RBC 2.75 XMIL (4.2-5.4); RDW 14.3 % (11.5-14.5); WBC 30.17 X1000 (4.8-10.8)
[2018-12-09 06:08] LABS: AGAP 11; BUN 32 mg/dL (8-22); CALCIUM 8.3 mg/dL (8.8-10.2); CHLORIDE 101 mmol/L (98-107); COSMO 305; CREATININE 0.6 mg/dL (0.5-0.9); ESTIMATED GFR > 60; GLUCOSE 193 mg/dL (70-104); POTASSIUM 3.5 mmol/L (3.5-5.1); SODIUM 147 mmol/L (136-145); TCO2 35 mmol/L (25-35)
[2018-12-09 06:20] LABS: LYMPHS 1 % (21-51); MONO 3 % (1-9); SEGS 96 % (42-75)
--- NOTE | 2018-12-09 07:05 | Diag Imaging Result Doc PS360 ---
EXAM: CHEST-1 VIEW 12/09/2018 HISTORY: SOB TECHNIQUE: AP portable at 0551 COMMENT: There is atelectasis versus pneumonia in the right lower lobe. There is subsegmental atelectasis in the left lower lobe. There may be a small right pleural effusion. There is cardiomegaly. There is probable mild interstitial pulmonary edema. IMPRESSION: Bibasilar atelectasis versus pneumonia particularly in the right lower lobe. Right pleural effusion. Mild pulmonary edema. Cardiomegaly. Electronically signed by Kulwinder Denise 12/09/2018 7:03 AM
--- NOTE | 2018-12-09 07:32 | CARDIOLOGY PROGRESS NOTE ---
DATE: 12/08/2018 SUBJECTIVE: Ms. Jones seems more alert today. She follows simple commands. She has no pain complaints. OBJECTIVE: Vital Signs: She is afebrile. Her heart rate most recently was in the 90s to low 100s. Overnight, she did have some 120s to 140s. Blood pressure 122/74. Her intake and output continue to be somewhat negative. General: She is in no acute distress. Cardiovascular: She sounds to be in a regular rate and rhythm, and current telemetry seems to show sinus. She has no lower extremity edema. Chest: Coarse breath sounds somewhat diffusely. Abdomen: Soft and nontender. PERTINENT LABORATORY DATA: Her ABG shows a continued relatively stable AA gradient over the last couple of days. She is on a slightly higher oxygen concentration. Her white count is 31, which continues to trend up since 12/05/2018, her hematocrit is 31, and her platelet count is 215,000. Her sodium is 155, which continues to trend up. Potassium 3.2, BUN 42, creatinine 0.9, which continues to be elevated. ASSESSMENT: Ms. Jones is a 73-year-old female with pneumonia, and has had periodic bouts of atrial fibrillation. PLAN: Her sodium continues to increase, as does her BUN. I have stopped her diuretics. She needs to continue on light IV fluids as she seems to be intravascularly volume depleted. She continues on a diltiazem infusion with reasonable rate control. Overall, she appears to be feeling better, and she is more awake and alert today. cc: MD Merrick Lindsey MD
--- NOTE | 2018-12-09 07:34 | PULMONOLOGY PROGRESS NOTE ---
DATE: 12/08/2018 SUBJECTIVE: The patient is currently on BiPAP. She has mild work of breathing. She is marginally responsive. OBJECTIVE: Vital Signs: Maximum temperature in the last 24 hours of 99.9 degrees. Blood pressure 145/87, heart rate 105, respiratory rate 14, oxygen saturation 96%. HEENT: Pupils are equal and reactive. Oropharynx is clear. Neck is supple. Chest reveals prolonged expiratory phase with some accessory muscle use. Abdomen: Soft, with mild tympany. Extremities reveal trace edema. Laboratories: Chest x-ray reveals increasing atelectasis or effusion at the right base. White blood count 13.67, hemoglobin 9.8, platelet count 215,000. Arterial blood gas, pH 7.51, pCO2 of 49, PO2 of 133. Sodium 155, potassium 3.2, chloride 108, bicarbonate 35, BUN 42, creatinine 0.9. IMPRESSION: A 73-year-old with: 1. Severe chronic obstructive pulmonary disease. 2. Recurrent lung cancer, status post radiation to the mediastinum. 3. Pleural effusions with diastolic heart failure. 4. Possible right lower lobe pneumonia. 5. Progressive hypernatremia. RECOMMENDATIONS: 1. Continue to cycle BiPAP at bedtime and p.r.n. 2. Continue Clinimix for protein calorie malnutrition. 3. Increase free water. 4. Continue bronchial hygiene. 5. Overall prognosis is poor. End of life discussions have taken place with the family. cc: MD Merrick Sellers MD
[2018-12-09] MEDS: XOPENEX NEB INH PRN ×3 (08:25→15:45)
[2018-12-09] MEDS: ATIVAN IV PRN ×2 (08:51→16:56)
[2018-12-09] MEDS: PROTONIX IV SCH (08:51)
--- NOTE | 2018-12-09 10:47 | PROGRESS NOTE ---
DATE: 12/09/2018 OBJECTIVE: Vital signs temperature 99 degrees, heart rate 103, respirations 15, blood pressure 126/82, O2 saturation on oxygen by mask is 98%. Chest x-ray showed atelectasis versus pneumonia, more so on the right at the base. Auscultation the lungs reveal decreased breath sounds at the bases and a few rhonchi bilaterally. Abdomen is soft. There is no ankle edema. LABORATORY: Hemoglobin 9.7, hematocrit 30.9, white blood count 30,200, similar to yesterday. Sodium is 147, potassium 3.5, BUN 32, creatinine 0.6, improved. Glucose is 193 and calcium 8.3. Blood cultures were negative on 12/01. PLAN: Continue intravenous antibiotics and respiratory treatments. Antibiotics include vancomycin and Piperacillin. cc: MD Merrick Berman MD
[2018-12-09] MEDS: CLINIMIX E 4.25%-5% SOLUTION 1,000 ML IV SCH ×2 (11:10→13:12)
[2018-12-09 12:08] LABS: AGAP 9; ALB/GLOB RATIO 1.3; ALBUMIN 3.2 g/dL (3.5-5.0); ALKALINE PHOSPHATASE 70 U/L (32-104); BUN 33 mg/dL (8-22); CHLORIDE 96 mmol/L (98-107); COSMO 289; CREATININE 0.6 mg/dL (0.5-0.9); ESTIMATED GFR > 60; GLUCOSE 212 mg/dL (70-104); GOT 48 U/L (10-30); GPT 164 U/L (10-36); POTASSIUM 3.8 mmol/L (3.5-5.1); SODIUM 138 mmol/L (136-145); TCO2 33 mmol/L (25-35); TOTAL BILIRUBIN 0.85 mg/dL (0.20-1.00); TOTAL PROTEIN 5.6 g/dL (6.3-8.3)
[2018-12-09] MEDS: LOPRESSOR IV PRN (13:23)
--- NOTE | 2018-12-09 16:04 | PULMONOLOGY PROGRESS NOTE ---
DATE: 12/09/2018 SUBJECTIVE: The patient is more awake and alert today. She has less work of breathing. She is conversant. OBJECTIVE: Vital Signs: The patient has been afebrile for the last 24 hours with maximum temperature 99.7 degrees, blood pressure 147/94, heart rate 110, respiratory rate 18, oxygen saturation 97% on face mask. HEENT: Pupils are equal and reactive. Oropharynx appears clear. Neck: Supple. Chest: Reveals rhonchi bilaterally. Cardiac exam: S1, S2. Abdomen: Soft. Extremities: Reveal 1+ peripheral edema. IMAGING STUDIES: Chest x-ray reveals generous cardiac silhouette, increased vascular markings, with atelectasis/pneumonia most prominent in the right base. LABORATORIES: White blood count 30,000, hemoglobin 9.7, platelet count 204,000. Arterial blood gas: pH 7.44, pCO2 of 63, pO2 of 79. IMPRESSION: A 73-year-old with: 1. Recurrent lung cancer, status post radiation therapy to the mediastinum. 2. Severe chronic obstructive pulmonary disease. 3. Diastolic heart failure. 4. Pleural effusion. 5. Right lower lobe pneumonia. 6. Hypernatremia with marginal improvement. RECOMMENDATIONS: 1. Continue free water for hypernatremia. 2. Clear liquid diet as tolerated. 3. Continue to cycle BiPAP at bedtime and p.r.n. 4. Continue bronchial hygiene. 5. Attempt to balance intake and output. 6. Overall prognosis is guarded to poor. cc: MD Merrick Sellers MD
--- NOTE | 2018-12-09 16:09 | CARDIOLOGY PROGRESS NOTE ---
DATE: 12/09/2018 SUBJECTIVE: Ms Jones continues on high-level oxygen. She has no complaints. PHYSICAL EXAMINATION: She is afebrile. Her heart rates currently are in the 90s. She appears to be in sinus. Occasionally goes up into the low 100s. Blood pressure 147/94.General: No acute distress. Cardiovascular: She sounds to be in a regular rate and rhythm presently, she has no murmur, she has no S3. She has no lower extremity edema. Chest: Has somewhat coarse breath sounds bilaterally. No wheezes. Abdomen: Soft, nontender. PERTINENT DATA: Her white count is 30, hematocrit 30, platelet count is 204,000. Sodium is 138, potassium 3.8, BUN 33, creatinine 0.6. ASSESSMENT: Ms. Jones is a 73-year-old female who presents with pneumonia and has had periodic bouts of atrial fibrillation during this hospitalization. PLAN: She is off the diltiazem infusion. She has reasonable control of her rates. I will start metoprolol at 25 b.i.d. orally. cc: MD Merrick Lindsey MD
[2018-12-09] MEDS: VANCOMYCIN 1,800 MG in NS 250 ML IV SCH (16:24)
[2018-12-09] MEDS ORDERED: LASIX IV ONE (20:00)
[2018-12-09] MEDS: LOPRESSOR PO SCH (20:15)
[2018-12-10] MEDS: ATIVAN IV PRN ×2 (01:00→12:29)
[2018-12-10] MEDS: SOLU-MEDROL IV SCH ×4 (04:05→20:03)
[2018-12-10] MEDS: ZOSYN 3.375 GM in NS 50 ML IV SCH (04:05)
[2018-12-10] MEDS: CLINIMIX E 4.25%-5% SOLUTION 1,000 ML IV SCH ×3 (04:06→22:26)
[2018-12-10] MEDS: D5W 1,000 ML IV SCH ×2 (04:06→12:29)
[2018-12-10 04:40] LABS: ALLEN TEST YES; BE 16.3 mmoll (-3.0-3.0); BLOOD TYPE ARTERIAL; HCO3-(ACT) 37.6 mmoll (20.0-26.0); METHB 1.4 % (0.0-1.5); O2(CT) 15.2 mL/dL (15.0-23.0); O2HB 95.1 % (95.0-99.0); PO2(98.6) 89 mmHg (60-100); SAMPLE BLOOD; SAO2 98.7 % (95.0-100.0); THB 11.3 g/dL (11.5-17.4); pH(98.6) 7.46 (7.35-7.45)
[2018-12-10 04:41] LABS: MODALITY BI PAP; PCO2(98.6) 60 mmHg (35-45)
[2018-12-10] MEDS: MORPHINE IV PRN ×4 (06:11→17:44)
[2018-12-10 06:20] LABS: BASO# 0.04 X1000 (0.0-0.2); BASO% 0.1 % (0.0-0.8); EOS# 0.07 X1000 (0.0-0.7); EOS% 0.2 % (0.0-10.0); HEMATOCRIT 32.3 % (37.0-47.0); HEMOGLOBIN 10.5 g/dL (12.0-16.0); IMM GRAN# 0.67 X1000 (0.0-0.04); IMM GRAN% 2.2 % (0.0-0.5); LYMPH# 0.57 X1000 (1.2-3.4); LYMPH% 1.9 % (20.5-51.1); MCH 35.1 PG (27-31); MCHC 32.5 g/dL (33-37); MONO# 1.16 X1000 (0.11-0.59); MONO% 3.9 % (1.7-9.3); MPV 10.6 FL (7.4-10.4); NEUT# 27.36 X1000 (1.4-6.5); NEUT% 91.7 % (42.2-75.2); PLT 203 X1000 (130-400); RBC 2.99 XMIL (4.2-5.4); RDW 13.6 % (11.5-14.5); WBC 29.87 X1000 (4.8-10.8)
[2018-12-10 06:38] LABS: AGAP 8; BUN 35 mg/dL (8-22); CALCIUM 7.8 mg/dL (8.8-10.2); CHLORIDE 93 mmol/L (98-107); COSMO 285; CREATININE 0.7 mg/dL (0.5-0.9); ESTIMATED GFR > 60; GLUCOSE 165 mg/dL (70-104); POTASSIUM 3.2 mmol/L (3.5-5.1); SODIUM 137 mmol/L (136-145); TCO2 36 mmol/L (25-35)
--- NOTE | 2018-12-10 06:48 | Diag Imaging Result Doc PS360 ---
EXAM: CHEST-1 VIEW HISTORY: SOB TECHNIQUE: Portable chest single view COMPARISON: 12/09/2018 FINDINGS: There are increased interstitial markings in the lower lungs similar to the prior exam. No cardiomegaly. No pulmonary edema. Questionable tiny pleural effusions. There are surgical clips in the right axilla. IMPRESSION: Persistent bilateral infiltrates. Electronically signed by Andrew Weiss 12/10/2018 6:45 AM
[2018-12-10 06:49] LABS: MAGNESIUM 2.2 mg/dL (1.5-2.7); PHOSPHORUS 3.8 mg/dL (2.7-4.5)
[2018-12-10] MEDS: SODIUM CHLORIDE 0.9% INJ SCH (08:15)
[2018-12-10] MEDS: LOPRESSOR PO SCH ×3 (08:15→20:03)
[2018-12-10] MEDS: PROTONIX IV SCH (08:15)
[2018-12-10] MEDS ORDERED: TYLENOL PO PRN (09:06)
[2018-12-10] MEDS: ATIVAN PO PRN ×2 (09:21→16:32)
--- NOTE | 2018-12-10 09:37 | PROGRESS NOTE ---
DATE: 12/10/2018 SUBJECTIVE: Ms. Jones is doing better. She is alert. She can take things by mouth. I am going to try to make most of her medications by mouth and change her to soft diet as well as transfer her to the floor. She is recovering from pneumonia. Continues to have leukocytosis. We will get Dr. Staton to see her today for persistence of pneumonia and leukocytosis. cc: Merrick Becerril MD
[2018-12-10] MEDS: APRESOLINE IV PRN (09:55)
[2018-12-10] MEDS: LOPRESSOR IV PRN ×2 (10:54→14:28)
[2018-12-10] MEDS: PERCOCET-10 PO PRN ×2 (11:01→15:45)
[2018-12-10] MEDS: MAXIPIME 2 GM in NS 100 ML IV SCH ×2 (11:07→22:26)
[2018-12-10] MEDS: DUONEB (A & A) INH SCH ×4 (11:30→23:50)
[2018-12-10] MEDS: ZITHROMAX PO SCH (12:35)
--- NOTE | 2018-12-10 12:55 | CONSULTATION ---
DATE OF CONSULTATION: 12/10/2018 SUBJECTIVE: The patient is extremely hard of hearing and I was unable to get a history from her. The information I did get was taken from the computer. CONCLUSION: Dr. Becerril has asked me to see the patient because she has leukocytosis and persistent pneumonia. As regarding the leukocytosis, I think that is due to the fact that the patient is getting high doses of steroids. As regarding her bibasilar infiltrates on chest x-ray, I think that it is possible that she does not have pneumonia and may have pulmonary venous congestion causing the bibasilar infiltrates. The patient was admitted to the hospital because she was short of breath. She has not had any fever or chills. Chest x-ray shows persistent bibasilar infiltrates. The patient's CBC shows a white count of 29,870, hemoglobin 10.5, and platelet count of 203,000. Blood gases show a pH of 7.46, a PO2 of 89 and a pCO2 of 60. Creatinine is 0.7. GFR is greater than 60. Blood cultures are negative. RECOMMENDATIONS: I have discontinued vancomycin and Zosyn. I have placed the patient on cefepime and azithromycin and I have ordered a procalcitonin level and I have also ordered a Legionella antigen test. PAST MEDICAL HISTORY: Positive for pneumonia, lung cancer, COPD, breast cancer, hysterectomy, right mastectomy, cholecystectomy, and bilateral cataract surgery. PERSONAL HISTORY: The patient is a smoker. She does not drink alcoholic beverages or abuse drugs. FAMILY HISTORY: Said to be noncontributory. REVIEW OF SYSTEMS: Unable to obtain. PHYSICAL EXAMINATION: Vital Signs: Temperature is 98.2 degrees, pulse 98, respirations 20, blood pressure 182/97. General: This is an ill-appearing elderly female. She is in no acute distress. Head/eyes/ears/nose/throat: She is very hard of hearing. She can see near objects. She is edentulous. She does not have any white coating of her tongue. Neck: No meningismus. Lungs: There were a few bibasilar rales. Cardiovascular: Heart rate is regular. Abdomen: Soft and nontender. Extremities: The patient has bilateral leg edema, but no erythema. Neurologic: The patient is awake she is very hard of hearing. She can see near objects. She can move her extremities. There is no tremor. Integument: No rash. The patient has a L groin IV catheter. The site is not red or purulent. Thank you for the consult. cc: MD Merrick Nolasco MD MTDD
--- NOTE | 2018-12-10 16:44 | CARDIOLOGY PROGRESS NOTE ---
DATE: 12/10/2018 SUBJECTIVE: Ms. Jones is awake. She is mentating well, follows commands. She has no complaints. OBJECTIVE: Vital Signs: She is afebrile. Her heart rate has been predominantly anywhere from the 80s to 100s but she will spike up occasionally into the 120s to 130s. Blood pressure 143/91. General: No acute distress. Cardiovascular: She sounds to be in a regular rate and rhythm. She has no murmurs. She has no lower extremity edema. Chest: Has coarse breath sounds somewhat diffusely. No increased work of breathing. Abdomen: Soft, nontender. PERTINENT DATA: White count 29, hematocrit 32, platelet count 203,000. Sodium is 137, potassium 3.2, BUN 35, creatinine 0.7. ASSESSMENT: Ms. Jones is a 73-year-old female with pneumonia whose has had periodic bouts of an atrial arrhythmia. PLAN: During my initial evaluation, she seemed to be in some sort of regular tachycardia going around 120 to 130. During the course of my examination, she converted out into a sinus rhythm in the 90s to low 100s. It seemed to have organized atrial activity originally, so I do not think that was atrial fibrillation. I will increase her metoprolol to 25 q.6h hours and escalate her p.r.n. metoprolol as well. cc: MD Merrick Lindsey MD
[2018-12-10] MEDS: ELAVIL PO SCH (17:24)
[2018-12-10] MEDS ORDERED: BLISTEX MEDICATED BERRY LIP BALM TOP PRN (17:46)
[2018-12-10] MEDS: MIRALAX PO SCH (20:03)
[2018-12-11] MEDS: LOPRESSOR PO SCH ×4 (01:45→20:35)
[2018-12-11] MEDS: SOLU-MEDROL IV SCH ×3 (03:30→20:35)
[2018-12-11] MEDS: ATIVAN IV PRN (03:58)
[2018-12-11] MEDS: MORPHINE IV PRN ×3 (04:25→14:36)
[2018-12-11] MEDS: PERCOCET-10 PO PRN ×4 (04:58→20:36)
[2018-12-11 05:02] LABS: ALLEN TEST YES; BE 14.5 mmoll (-3.0-3.0); BLOOD TYPE ARTERIAL; HCO3-(ACT) 36.1 mmoll (20.0-26.0); METHB 0.4 % (0.0-1.5); O2(CT) 18.2 mL/dL (15.0-23.0); O2HB 93.7 % (95.0-99.0); PO2(98.6) 67 mmHg (60-100); SAMPLE BLOOD; SAO2 97.4 % (95.0-100.0); THB 13.8 g/dL (11.5-17.4); pH(98.6) 7.47 (7.35-7.45)
[2018-12-11 05:03] LABS: MODALITY BI PAP; PCO2(98.6) 56 mmHg (35-45)
[2018-12-11 05:41] LABS: BASO# 0.06 X1000 (0.0-0.2); BASO% 0.2 % (0.0-0.8); HEMATOCRIT 36.3 % (37.0-47.0); IMM GRAN# 0.96 X1000 (0.0-0.04); IMM GRAN% 3.2 % (0.0-0.5); LYMPH# 0.38 X1000 (1.2-3.4); LYMPH% 1.3 % (20.5-51.1); MCH 35.2 PG (27-31); MCHC 33.1 g/dL (33-37); MCV 106.5 FL (81-99); MONO# 1.47 X1000 (0.11-0.59); MONO% 4.9 % (1.7-9.3); MPV 10.1 FL (7.4-10.4); NEUT# 27.14 X1000 (1.4-6.5); NEUT% 90.4 % (42.2-75.2); PLT 202 X1000 (130-400); RBC 3.41 XMIL (4.2-5.4); RDW 13.8 % (11.5-14.5); WBC 30.01 X1000 (4.8-10.8)
[2018-12-11 05:49] LABS: AGAP 7; BUN 32 mg/dL (8-22); CALCIUM 8.1 mg/dL (8.8-10.2); CHLORIDE 92 mmol/L (98-107); COSMO 283; CREATININE 0.6 mg/dL (0.5-0.9); ESTIMATED GFR > 60; GLUCOSE 175 mg/dL (70-104); POTASSIUM 3.8 mmol/L (3.5-5.1); SODIUM 136 mmol/L (136-145); TCO2 37 mmol/L (25-35)
[2018-12-11 06:27] LABS: LYMPHS 5 % (21-51); SEGS 95 % (42-75)
--- NOTE | 2018-12-11 06:58 | Diag Imaging Result Doc PS360 ---
CHEST-1 VIEW - 12/11/2018 INDICATION: SOB COMPARISON: 12/10/2018 FINDINGS: Stable bibasilar infiltrates or atelectasis. No new infiltrates. Heart size and pulmonary vascularity remain normal. Stable surgical clips in the right axilla soft tissues. IMPRESSION: No change from prior. Bibasilar infiltrates or atelectasis. Electronically signed by Jones Segundo 12/11/2018 6:55 AM
[2018-12-11] MEDS: DUONEB (A & A) INH SCH ×6 (07:51→23:25)
[2018-12-11] MEDS: KLOR-CON PO SCH (08:03)
[2018-12-11] MEDS: NICODERM PATCH TD SCH (08:03)
[2018-12-11] MEDS: SODIUM CHLORIDE 0.9% INJ SCH (08:03)
[2018-12-11] MEDS: PROTONIX IV SCH (08:03)
[2018-12-11] MEDS: FOLIC ACID PO SCH (08:04)
[2018-12-11] MEDS: VITAMIN B-12 PO SCH (08:04)
[2018-12-11] MEDS: ASPIRIN EC PO SCH (08:04)
[2018-12-11] MEDS: ZITHROMAX PO SCH (08:04)
[2018-12-11] MEDS: COLACE PO SCH (08:04)
[2018-12-11] MEDS: FISH OIL CONCENTRATE PO SCH (08:04)
[2018-12-11] MEDS: LEXAPRO PO SCH (08:04)
[2018-12-11] MEDS: MIRALAX PO SCH ×2 (08:04→20:35)
[2018-12-11] MEDS ORDERED: PREDNISONE PO SCH (09:00)
[2018-12-11] MEDS: LIDODERM TOP SCH (10:21)
[2018-12-11] MEDS: MAXIPIME 2 GM in NS 100 ML IV SCH ×2 (12:23→22:23)
[2018-12-11] MEDS: D5W 1,000 ML IV SCH (12:23)
--- NOTE | 2018-12-11 12:43 | INFECTIOUS DISEASE PROGRESS NO ---
DATE: 12/11/2018 PRESENT ILLNESS: The patient has bibasilar infiltrates and a leukocytosis. As regarding her leukocytosis, I think that could well be due to the fact that the patient is on high-dose steroids. As regarding the patient's bibasilar infiltrates, I think there is a good possibility that they are due to pulmonary venous congestion rather than pneumonia. MEDICATIONS: The patient yesterday was started on a combination of cefepime and azithromycin. PHYSICAL EXAMINATION: Vital Signs: Temperature is 98 degrees, pulse 112, respirations 18, blood pressure 163/85. General: This is an obese, ill-appearing, elderly female. She is in no acute distress. Head, eyes, ears, nose, and throat: She has marked decrease in her hearing. She can see near objects. She does not have any white coating on her tongue. Neck: She does not have any pain when she moves her neck. Lungs: There were a few bibasilar rales. Cardiovascular: Heart rate is regular. Abdomen: Soft and nontender. Extremities: Patient has bilateral leg edema without erythema. Neurologic: The patient has decreased hearing. Her vision is okay and she can move her extremities. Integument: No rash noted. The patient has an IV catheter in the left groin. The site is not erythematous. LAB AND X-RAY: Chest x-ray shows bibasilar infiltrates/atelectasis. CBC shows a white count of 30,010, hemoglobin 12 and platelet count 212,000. Blood gases show a pH of 7.47, a PO2 of 67, and a pCO2 of 56. Creatinine is 0.6. GFR is greater than 60. ASSESSMENT AND PLAN: The patient has leukocytosis. I think that is due to the steroids she is on. She has bibasilar infiltrates versus atelectasis. I think it is possible that the infiltrates could be due to atelectasis or the infiltrates could be due to pulmonary venous congestion. In any event, I have ordered a procalcitonin level which hopefully will give her some valuable information as to what is causing the bibasilar infiltrates. At this time, I think it reasonable to continue on with aztreonam and cefepime. COMORBIDITIES: She is elderly. She has lung cancer and COPD. The patient is a cigarette smoker. cc: MD Merrick Nolasco, MD
--- NOTE | 2018-12-11 13:57 | PROGRESS NOTE ---
DATE: 12/11/2018 Ms. Jones is doing better. Her white count is still going up to 30,000, and her blood gases show improvement. Chest x-ray is almost unchanged. She was seen by DR. Staton, who has changed antibiotics. She is on cefepime and azithromycin now. We will continue the current management and start physical therapy on her. -4 cc: Merrick Becerril MD
[2018-12-11] MEDS: CLINIMIX E 4.25%-5% SOLUTION 1,000 ML IV SCH (14:36)
[2018-12-11] MEDS: ELAVIL PO SCH ×2 (16:49→17:05)
[2018-12-11] MEDS: ATIVAN PO PRN (20:35)
[2018-12-11] MEDS: LOTRISONE CREAM TOP SCH (20:36)
--- NOTE | 2018-12-11 21:47 | CARDIOLOGY PROGRESS NOTE ---
DATE: 12/11/2018 SUBJECTIVE: Ms. Jones feels somewhat better. She is not having any palpitations. She has moved up to the [facility]. OBJECTIVE: Vital Signs: Afebrile. Her heart rate is predominantly in the 80s to low 100s. Her blood pressure is 151/75. General: No acute distress. Cardiovascular: She sounds to be in a tachycardic and regular rhythm right now. She has no murmurs. No S3. No lower extremity edema. Her chest exam has coarse breath sounds somewhat diffusely. No increased work of breathing. Abdomen: Soft, nontender. PERTINENT DATA: White count is 30, hematocrit 36, platelet count 202,000. She has a left shift with no bands. Sodium 136, potassium 3.8, BUN 32, creatinine 0.6. ASSESSMENT: Ms. Jones is a 73-year-old female who presents with a pneumonia and has what appears to be atrial fibrillation. PLAN: She has reasonable rate control presently. I will not make any changes in her regimen at this current time. We will continue to follow. cc: MD Merrick Lindsey MD
[2018-12-12] MEDS: LOPRESSOR PO SCH ×4 (01:58→20:56)
[2018-12-12] MEDS: DUONEB (A & A) INH SCH ×6 (03:30→23:36)
[2018-12-12 05:10] LABS: ALLEN TEST YES; BE 14.7 mmoll (-3.0-3.0); BLOOD TYPE ARTERIAL; HCO3-(ACT) 36.4 mmoll (20.0-26.0); METHB 1.2 % (0.0-1.5); O2(CT) 13.9 mL/dL (15.0-23.0); O2HB 95.1 % (95.0-99.0); PO2(98.6) 82 mmHg (60-100); SAMPLE BLOOD; SAO2 98.1 % (95.0-100.0); THB 10.3 g/dL (11.5-17.4); pH(98.6) 7.42 (7.35-7.45)
[2018-12-12] MEDS: CLINIMIX E 4.25%-5% SOLUTION 1,000 ML IV SCH ×2 (05:13→20:57)
[2018-12-12] MEDS: PERCOCET-10 PO PRN ×4 (05:14→18:19)
[2018-12-12 05:15] LABS: MODALITY BI PAP; PCO2(98.6) 64 mmHg (35-45)
[2018-12-12 06:43] LABS: AGAP 7; BUN 30 mg/dL (8-22); CHLORIDE 94 mmol/L (98-107); COSMO 282; CREATININE 0.6 mg/dL (0.5-0.9); ESTIMATED GFR > 60; GLUCOSE 138 mg/dL (70-104); POTASSIUM 4.4 mmol/L (3.5-5.1); SODIUM 137 mmol/L (136-145); TCO2 36 mmol/L (25-35)
[2018-12-12] MEDS: MORPHINE IV PRN ×3 (07:21→19:19)
--- NOTE | 2018-12-12 08:20 | Diag Imaging Result Doc PS360 ---
CT THORAX W/O CONTRAST - 12/12/2018 INDICATION: pneumonia COMPARISON: 12/02/2018, 04/27/2017 FINDINGS: Stable changes of right-sided mastectomy and lymphadenectomy. There is no adenopathy. There is a subtle low-density mass in the dome of the liver measuring about 18 mm. For some reason, this is not visible on the CT from 12/02/2018. There are numerous bilateral rib fractures. These are in varying stages of healing. Several of these are quite displaced. Nearly every rib is fractured. There is a small right and trace left pleural effusion. Heart and great vessels are normal. There is some slight body wall edema. There is a small granuloma in the left lower lobe. Otherwise the lungs are grossly clear of infiltrate. IMPRESSION: 1. Numerous bilateral rib fractures in various stages of healing. 2. Small right and trace left pleural effusions. 3. Indeterminate low density liver mass. Recommend further evaluation with a full abdomen pelvis CT, preferably with intravenous contrast. This exam was performed using automated exposure control, adjustment of mA or kV according to patient size, and/or use of iterative reconstruction technique Electronically signed by Jones Segundo 12/12/2018 8:18 AM
[2018-12-12] MEDS: LEXAPRO PO SCH (08:38)
[2018-12-12] MEDS: MIRALAX PO SCH ×2 (08:38→20:56)
[2018-12-12] MEDS: NICODERM PATCH TD SCH (08:38)
[2018-12-12] MEDS: DIFLUCAN PO SCH (08:38)
[2018-12-12] MEDS: KLOR-CON PO SCH (08:38)
[2018-12-12] MEDS: VITAMIN B-12 PO SCH (08:39)
[2018-12-12] MEDS: PROTONIX IV SCH (08:39)
[2018-12-12] MEDS: ZITHROMAX PO SCH (08:39)
[2018-12-12] MEDS: SOLU-MEDROL IV SCH (08:39)
[2018-12-12] MEDS: FISH OIL CONCENTRATE PO SCH (08:39)
[2018-12-12] MEDS: FOLIC ACID PO SCH (08:39)
[2018-12-12] MEDS: LOTRISONE CREAM TOP SCH ×2 (08:39→20:57)
[2018-12-12] MEDS: ASPIRIN EC PO SCH (08:40)
[2018-12-12] MEDS: COLACE PO SCH (08:40)
[2018-12-12] MEDS: ATIVAN PO PRN ×3 (08:44→20:57)
[2018-12-12 08:51] LABS: BASO# 0.07 X1000 (0.0-0.2); BASO% 0.3 % (0.0-0.8); EOS# 0.01 X1000 (0.0-0.7); HEMATOCRIT 33.3 % (37.0-47.0); HEMOGLOBIN 10.9 g/dL (12.0-16.0); IMM GRAN# 0.71 X1000 (0.0-0.04); IMM GRAN% 2.8 % (0.0-0.5); LYMPH# 0.71 X1000 (1.2-3.4); LYMPH% 2.8 % (20.5-51.1); MCHC 32.7 g/dL (33-37); MCV 109.9 FL (81-99); MONO# 1.66 X1000 (0.11-0.59); MONO% 6.6 % (1.7-9.3); MPV 9.9 FL (7.4-10.4); NEUT# 21.86 X1000 (1.4-6.5); NEUT% 87.5 % (42.2-75.2); PLT 148 X1000 (130-400); RBC 3.03 XMIL (4.2-5.4); WBC 25.02 X1000 (4.8-10.8)
[2018-12-12] MEDS: MAXIPIME 2 GM in NS 100 ML IV SCH ×4 (09:22→22:20)
[2018-12-12 09:38] LABS: BANDS 5 % (0-1); LYMPHS 1 % (21-51); MONO 1 % (1-9); SEGS 91 % (42-75)
--- NOTE | 2018-12-12 09:46 | PROGRESS NOTE ---
DATE: 12/12/2018 SUBJECTIVE: Ms. Jones is white count is 25.02. Her ABG shows some elevation in the pCO2. However, she is on IV Solu-Medrol and respiratory therapy. She has severe COPD. I am going to change her Solu-Medrol to prednisone 10 mg 3 times a day. -8 cc: Merrick Becerril MD
--- NOTE | 2018-12-12 10:09 | INFECTIOUS DISEASE PROGRESS NO ---
DATE: 12/12/2018 PRESENT ILLNESS: The patient has bibasilar infiltrates. It could be due to atelectasis or pulmonary venous congestion or possibly pneumonia. The patient has leukocytosis. As mentioned earlier, I think that the leukocytosis is secondary to the patient getting steroids. MEDICATIONS: The patient is on cefepime and azithromycin now for 2 days. PHYSICAL EXAMINATION: Vital Signs: Temperature is 98.7 degrees, pulse 117, respirations 18, blood pressure 133/66. General: This is an obese, ill-appearing elderly female. She is in no acute distress. Head/eyes/ears/nose/throat: She has decreased hearing. She can see near objects. She does not have any white patches on her tongue. Neck: She moves her neck without having pain. Lungs: There were bibasilar rales. Cardiovascular: Heart rate is regular. Abdomen: Soft and nontender. Extremities: Patient has bilateral leg edema. There is no erythema. Neurologic: The patient has decreased hearing. She has generalized weakness as well. Integument: No rash. The patient does have an IV catheter in her left groin. The site is not swollen or erythematous. LAB AND X-RAY: Chest x-ray shows bibasilar infiltrates/atelectasis. A procalcitonin level was 0.1 which means bacterial pneumonia is unlikely. Legionella antigen is negative. CBC in the computer says that it was canceled. There is no BMP for today as of yet. The patient's blood gases show a pH of 7.42, a PO2 of 82, and a pCO2 of 64. ASSESSMENT AND PLAN: The patient does have bibasilar infiltrates which could be due to infection or atelectasis or pulmonary venous congestion. With the low procalcitonin I think it is unlikely that she has a bacterial pneumonia. My plan would be to get a noncontrasted CT scan of the chest. As regarding the leukocytosis, I still think that it is due mostly to steroids and not some infectious etiology. COMORBIDITIES: The patient is elderly. She has lung cancer and COPD. She also is a cigarette smoker. cc: MD Merrick Nolasco MD
[2018-12-12] MEDS: PREDNISONE PO SCH ×2 (13:59→20:57)
[2018-12-12] MEDS: D5W 1,000 ML IV SCH (14:01)
[2018-12-12] MEDS: ELAVIL PO SCH (18:03)
[2018-12-12] MEDS: LIDODERM TOP SCH (20:56)
[2018-12-13] MEDS: LOPRESSOR PO SCH ×4 (02:46→20:56)
[2018-12-13] MEDS: DUONEB (A & A) INH SCH ×6 (03:28→23:40)
[2018-12-13] MEDS: MORPHINE IV PRN ×4 (05:16→19:08)
[2018-12-13] MEDS: ATIVAN PO PRN ×2 (05:17→20:56)
[2018-12-13 05:43] LABS: BASO# 0.05 X1000 (0.0-0.2); BASO% 0.2 % (0.0-0.8); HEMATOCRIT 31.8 % (37.0-47.0); IMM GRAN# 0.88 X1000 (0.0-0.04); IMM GRAN% 3.7 % (0.0-0.5); LYMPH# 1.13 X1000 (1.2-3.4); LYMPH% 4.7 % (20.5-51.1); MCH 35.2 PG (27-31); MCHC 31.4 g/dL (33-37); MONO# 1.16 X1000 (0.11-0.59); MONO% 4.8 % (1.7-9.3); MPV 10.3 FL (7.4-10.4); NEUT# 20.85 X1000 (1.4-6.5); NEUT% 86.6 % (42.2-75.2); PLT 155 X1000 (130-400); RBC 2.84 XMIL (4.2-5.4); RDW 14.2 % (11.5-14.5); WBC 24.07 X1000 (4.8-10.8)
[2018-12-13 05:54] LABS: ESTIMATED GFR > 60
[2018-12-13 06:06] LABS: BUN 24 mg/dL (8-22); CALCIUM 7.8 mg/dL (8.8-10.2); CHLORIDE 95 mmol/L (98-107); COSMO 281; CREATININE 0.5 mg/dL (0.5-0.9); GLUCOSE 128 mg/dL (70-104); POTASSIUM 4.6 mmol/L (3.5-5.1); SODIUM 138 mmol/L (136-145); TCO2 44 mmol/L (25-35)
[2018-12-13 06:20] LABS: LYMPHS 3 % (21-51); MONO 4 % (1-9); SEGS 93 % (42-75)
[2018-12-13] MEDS: PERCOCET-10 PO PRN ×4 (06:20→21:07)
[2018-12-13] MEDS: NON-FORMULARY BULK MED INH SCH (07:30)
[2018-12-13] MEDS: FISH OIL CONCENTRATE PO SCH (08:50)
[2018-12-13] MEDS: ASPIRIN EC PO SCH (08:50)
[2018-12-13] MEDS: PROTONIX IV SCH (08:50)
[2018-12-13] MEDS: DIFLUCAN PO SCH (08:50)
[2018-12-13] MEDS: NICODERM PATCH TD SCH (08:50)
[2018-12-13] MEDS: PREDNISONE PO SCH ×3 (08:51→20:56)
[2018-12-13] MEDS: VITAMIN B-12 PO SCH (08:51)
[2018-12-13] MEDS: FOLIC ACID PO SCH (08:51)
[2018-12-13] MEDS: COLACE PO SCH (08:51)
[2018-12-13] MEDS: KLOR-CON PO SCH (08:52)
[2018-12-13] MEDS: LOTRISONE CREAM TOP SCH ×2 (08:53→20:56)
[2018-12-13] MEDS: LIDODERM TOP SCH ×2 (08:53→20:56)
[2018-12-13] MEDS: MIRALAX PO SCH ×2 (08:53→20:51)
[2018-12-13] MEDS: MYCOSTATIN SUSP PO SCH ×4 (09:00→20:56)
[2018-12-13] MEDS: LEXAPRO PO SCH (09:01)
--- NOTE | 2018-12-13 09:18 | PROGRESS NOTE ---
DATE: 12/13/2018 Ms. Jones had a CAT scan done yesterday which revealed almost clearance of the pneumonia. However, there is a possible mass in the liver. We are going to try to do the CT scan of the abdomen but without IV contrast as she is significant sick. Overall, condition is stable. She has a yeast infection, oral as well as vaginal yeast infection. She has being treated with Diflucan 150 mg daily. Overall condition is otherwise unchanged. -7 cc: Merrick Becerril MD
--- NOTE | 2018-12-13 11:05 | Diag Imaging Result Doc PS360 ---
EXAM: CT ABD/PELVIS W/ORAL CONT ONLY 12/13/2018 HISTORY: without IV contrast TECHNIQUE: This exam was performed using automated exposure control, adjustment of mA or kV according to patient size, and/or use of iterative reconstruction technique. COMMENT: The current examination is compared with the previous study of 11/01/2012, and the thoracic study of 12/12/2018. There are atelectatic changes present in the left lower lobe which were not present on the previous abdominal study but which were present on the thoracic study. There are are loculated pleural fluid collections present on the right with a smaller effusion on the left. This was present on the previous thoracic study. The spleen and adrenal glands are stable in appearance. There is a lucent lesion in the right hepatic lobe which is not clearly demonstrated on the previous abdominal study from 2012. There is not terribly well marginated and appears to measure slightly over 2 cm in AP dimension. Further evaluation with intravenous contrast may be desirable. There is no evidence of nephrolithiasis. The right collecting system and renal pelvis are slightly distended. There is a vascular calcification in the right kidney. There are calcifications in the aorta and its other branches. There is slight dilatation of the infrarenal abdominal aorta to a maximum AP diameter of 2.5 cm. Previously this measured 2.4 cm. There is gas and fluid in the colon. The small bowel is not distended. The stomach contains contrast. There is some motion artifact but the pancreas is grossly normal in appearance. There is some subcutaneous edema particularly in the left flank. The appendix is normal in appearance. There is a Cleaning catheter in the bladder. There is degenerative change in the symphysis pubis with calcium pyrophosphate deposition. There is spinal stenosis at L4-5 and L3-4. IMPRESSION: New apparent right hepatic lesion. Bilateral pleural effusions and bibasilar atelectasis versus pneumonia. Mild anasarca. Electronically signed by Kulwinder Denise 12/13/2018 11:03 AM
--- NOTE | 2018-12-13 12:07 | INFECTIOUS DISEASE PROGRESS NO ---
DATE: 12/13/2018 ADDENDUM: On physical exam today, the patient appeared to be developing oral candidiasis. I have ordered that she be started on nystatin 5 mL swish and swallow four times a day. I would suggest continuing the nystatin until it clears and hopefully the patient is off high doses of steroids. cc: MD Merrick Nolasco MD
--- NOTE | 2018-12-13 12:09 | INFECTIOUS DISEASE PROGRESS NO ---
DATE: 12/13/2018 PRESENT ILLNESS: The patient does not appear now to have a pneumonia. CT scan showed no infiltrates. There was one granuloma seen. However, on the CT, there was possible liver mass seen. Also, the patient's low procalcitonin level of 0.1 makes pneumonia unlikely also. The patient does have leukocytosis, but it is gradually coming down, and as mentioned earlier, I think it is most likely secondary to steroids. The patient is complaining of a lot of chest pain, especially when she tries to breathe deep, and I think this is due to the numerous number of rib fractures she had when she was resuscitated. MEDICATIONS: The patient is on day 3 of aztreonam and cefepime. PHYSICAL EXAMINATION: Vital Signs: Temperature is 99 degrees, pulse 90, respirations 12, blood pressure 150/65. General: This is an ill-appearing, elderly female. She is very hard of hearing. HEENT: No drainage noted from the nose or ears. She is very hard of hearing. She can see near objects. She does appear to be developing thrush as manifested by white coating of her tongue. Neck: The patient does not have any pain when she moves her neck. Lungs: There were some crunching sounds I would hear, which may be due to the numerous bone fractures she had when she takes deep breaths. I did not hear any rales. Cardiovascular: Heart rate is regular. Abdomen: Soft and not tender. Neurologic: The patient is awake. She is very hard of hearing. There is no tremor. She can move her extremities. IMAGING AND LABORATORY DATA: CT scan of the chest shows numerous rib fractures and a liver mass. The lungs show no infiltrates suggestive of pneumonia. There is one granuloma seen. Creatinine is 0.5. GFR is greater than 60. The Legionella antigen was negative. Procalcitonin level was 0.1. ASSESSMENT AND PLAN: The patient does not appear now to have pneumonia, and I am going to discontinue her antibiotics. Dr. Becerril is going to order a CT scan of the abdomen so we can get a better view of what the liver mass is. As regarding the patient's white blood cell count, I think again it is elevated because of the steroid she is on. The count is actually getting lower, and her dose now of prednisone is going to be decreased. I am going to sign off the patient's case. I am going to discontinue her antibiotics, namely aztreonam and cefepime. I am available to see the patient on a p.r.n. basis, but I am signing off for now. I started the patient on mycostatin swish and swallow. COMORBIDITIES: She is elderly. She unfortunately underwent cardiopulmonary resuscitation, which caused numerous rib fractures. The patient also has lung cancer and COPD. The patient also is a cigarette smoker. cc: MD Merrick Nolasco MD MTDD
[2018-12-13] MEDS: D5W 1,000 ML IV SCH (14:26)
[2018-12-13] MEDS: CLINIMIX E 4.25%-5% SOLUTION 1,000 ML IV SCH (14:26)
[2018-12-13] MEDS: ELAVIL PO SCH (17:00)
[2018-12-14] MEDS: LOPRESSOR PO SCH ×3 (02:02→13:23)
[2018-12-14] MEDS: DUONEB (A & A) INH SCH ×5 (03:19→19:25)
[2018-12-14 05:47] LABS: BASO# 0.09 X1000 (0.0-0.2); BASO% 0.4 % (0.0-0.8); EOS# 0.02 X1000 (0.0-0.7); EOS% 0.1 % (0.0-10.0); HEMATOCRIT 31.7 % (37.0-47.0); IMM GRAN# 0.95 X1000 (0.0-0.04); LYMPH# 0.94 X1000 (1.2-3.4); LYMPH% 3.9 % (20.5-51.1); MCH 35.5 PG (27-31); MCHC 31.5 g/dL (33-37); MCV 112.4 FL (81-99); MONO% 4.2 % (1.7-9.3); MPV 10.6 FL (7.4-10.4); NEUT# 20.91 X1000 (1.4-6.5); NEUT% 87.4 % (42.2-75.2); PLT 150 X1000 (130-400); RBC 2.82 XMIL (4.2-5.4); RDW 14.7 % (11.5-14.5); WBC 23.91 X1000 (4.8-10.8)
[2018-12-14] MEDS: CLINIMIX E 4.25%-5% SOLUTION 1,000 ML IV SCH (06:16)
[2018-12-14 06:24] LABS: LYMPHS 4 % (21-51); MONO 3 % (1-9); SEGS 90 % (42-75)
[2018-12-14 06:25] LABS: AGAP 6; BUN 25 mg/dL (8-22); CALCIUM 8.9 mg/dL (8.8-10.2); CHLORIDE 94 mmol/L (98-107); COSMO 280; CREATININE 0.5 mg/dL (0.5-0.9); ESTIMATED GFR > 60; GLUCOSE 135 mg/dL (70-104); POTASSIUM 5.3 mmol/L (3.5-5.1); SODIUM 137 mmol/L (136-145); TCO2 37 mmol/L (25-35)
--- NOTE | 2018-12-14 06:56 | Diag Imaging Result Doc PS360 ---
CHEST-1 VIEW - 12/14/2018 INDICATION: SOB COMPARISON: 12/11/2018 FINDINGS: Stable small bibasilar pleural effusions. Stable small bibasilar infiltrates or atelectasis. Stable pulmonary vascular congestion. No evidence of edema. No pneumothorax. IMPRESSION: No change from prior. Electronically signed by Jones Segundo 12/14/2018 6:53 AM
[2018-12-14] MEDS: NON-FORMULARY BULK MED INH SCH (07:27)
[2018-12-14] MEDS ORDERED: PROTONIX PO ONE (07:31)
[2018-12-14] MEDS: MIRALAX PO SCH (08:08)
[2018-12-14] MEDS: DIFLUCAN PO SCH (08:08)
[2018-12-14] MEDS: NICODERM PATCH TD SCH (08:08)
[2018-12-14] MEDS: FOLIC ACID PO SCH (08:09)
[2018-12-14] MEDS: PERCOCET-10 PO PRN (08:09)
[2018-12-14] MEDS: LOTRISONE CREAM TOP SCH (08:09)
[2018-12-14] MEDS: LEXAPRO PO SCH (08:09)
[2018-12-14] MEDS: VITAMIN B-12 PO SCH (08:09)
[2018-12-14] MEDS: ASPIRIN EC PO SCH (08:10)
[2018-12-14] MEDS: ATIVAN PO PRN (08:10)
[2018-12-14] MEDS: PREDNISONE PO SCH (08:10)
[2018-12-14] MEDS: MYCOSTATIN SUSP PO SCH ×2 (08:10→13:22)
[2018-12-14] MEDS: FISH OIL CONCENTRATE PO SCH (08:10)
[2018-12-14] MEDS: COLACE PO SCH (08:10)
[2018-12-14] MEDS: KLOR-CON PO SCH (08:10)
[2018-12-14] MEDS ORDERED: LASIX IV ONE (08:30)
[2018-12-14] MEDS: APRESOLINE IV PRN (08:32)
[2018-12-14] MEDS ORDERED: LASIX ONE (08:37)
[2018-12-14] MEDS: MORPHINE IV PRN ×5 (08:48→19:17)
[2018-12-14] MEDS: LOPRESSOR IV PRN (09:04)
[2018-12-14] MEDS: XOPENEX NEB INH PRN (09:04)
--- NOTE | 2018-12-14 09:12 | EKG Report ---
Test Performed on : 12/14/2018 08:45:14 AM Test Reason : TACHYCARDIA Blood Pressure : / mmHG Vent. Rate : 179 BPM Atrial Rate : 113 BPM P-R Int : 000 ms QRS Dur : 088 ms QT Int : 222 ms P-R-T Axes : 000 015 149 degrees QTc Int : 383 ms Supraventricular tachycardia. Nonspecific ST and T wave abnormality Abnormal ECG When compared with ECG of 05-DEC-2018 18:12, Sinus rhythm. has replaced Atrial fibrillation. ST now depressed in Inferior leads ST now depressed in Lateral leads Nonspecific T wave abnormality now evident in Lateral leads Confirmed by Drew LORENZO, Thiago Colon ([id number]) on 12/18/2018 12:41:14 PM
[2018-12-14] MEDS ORDERED: SOLU-MEDROL IV ONE (09:43)
[2018-12-14] MEDS ORDERED: SOLU-MEDROL ONE (09:43)
--- NOTE | 2018-12-14 10:02 | Diag Imaging Result Doc PS360 ---
CHEST-1 VIEW - 12/14/2018 9:52 AM INDICATION: acutely worsening SOB COMPARISON: 5:43 AM FINDINGS: There is perhaps a small right basilar pleural effusion. There is some stable minimal infiltrate or atelectasis in both lung bases. Stable cardiomegaly and pulmonary vascular congestion. No other infiltrates. No edema. IMPRESSION: No change from prior. Electronically signed by Jones Segundo 12/14/2018 10:00 AM
[2018-12-14 10:11] LABS: ALLEN TEST YES; BE 14.7 mmoll (-3.0-3.0); BLOOD TYPE ARTERIAL; HCO3-(ACT) 36.4 mmoll (20.0-26.0); METHB 1.3 % (0.0-1.5); O2(CT) 14.8 mL/dL (15.0-23.0); O2HB 95.2 % (95.0-99.0); PO2(98.6) 78 mmHg (60-100); SAMPLE BLOOD; SAO2 98.6 % (95.0-100.0)
[2018-12-14 10:13] LABS: MODALITY BI PAP; PCO2(98.6) 51 mmHg (35-45)
--- NOTE | 2018-12-14 10:42 | PROGRESS NOTE ---
DATE: 12/14/2018 Ms. Jones is not doing good this morning. She is very diaphoretic. She is hypotensive. She is in atrial fibrillation with heart rate of around 125. She is alert. However, it appears like she is in shock at the present time. The abdominal CT scan showed that she definitely has a lesion in the right lobe of liver. It is about 2 cm and that most probably is the metastatic area. Overall prognosis is poor. The family has decided about DNR 1. We gave her injections of Solu-Medrol 125 mg IV now. cc: Merrick Becerril MD
[2018-12-14] MEDS ORDERED: LASIX IV SCH (13:15)
[2018-12-14] MEDS: D5W 1,000 ML IV SCH (13:18)
[2018-12-14] MEDS: ATIVAN IV PRN ×2 (13:28→19:17)
[2018-12-14] MEDS ORDERED: SOLU-MEDROL IV SCH (14:00)
[2018-12-14] MEDS ORDERED: ATROPINE 1 % OPHTH SOLN SL PRN (18:44)
[2018-12-14] MEDS ORDERED: TRANSDERM-SCOP TD SCH (18:45)
[2018-12-14 20:22] VITALS: BP 83/46
--- NOTE | 2018-12-14 21:40 | CARDIOLOGY PROGRESS NOTE ---
DATE: 12/14/2018 SUBJECTIVE: Ms. Jones is on BiPAP. She is minimally responsive to physical and verbal stimuli. PHYSICAL: Vital Signs: Afebrile. Heart rate of 105. She appears to be in atrial fib on telemetry. Blood pressure 143/82. General: She is in no acute distress. Cardiovascular: She sounds to be in an irregularly irregular rhythm. She has mildly cool distal extremities. She has no edema. Chest: Exam has coarse breath sounds diffusely. She is on BiPAP. No increased work of breathing. Abdomen: Soft and nontender. PERTINENT DATA: CT of her abdomen and pelvis was noted demonstrating a right hepatic lesion. Could represent possible metastatic disease. Her chest x-ray today demonstrated stable cardiomegaly and pulmonary vascular congestion with no other infiltrates. Her lab data showed a white count of 23. Her hematocrit is 31, platelet count is 150. She has a left shift in her differential. Her lactate level is 1.7, sodium 137, potassium 5.3. BUN 25, creatinine 0.5. Her proBNP was minimally elevated at 678. ASSESSMENT: 1. Ms. Jones is a 73-year-old female who presented with pneumonia. 2. Also has lung cancer. 3. Chronic obstructive pulmonary disease exacerbation. 4. Has developed a new onset atrial fibrillation. PLAN: I do not believe that her respiratory issues presently are contributed to by CHF. She has a normal ejection fraction. She does have some pleural effusions present which could be due to the malignancy in the pneumonia. Her proBNP is fairly low and actually much lower than earlier in the hospitalization which would suggest that she is much better from a volume status. It would be reasonable though given her marginal pulmonary status to try to diurese as much as possible. We will try to continue with rate control. She has diltiazem ordered as well as p.r.n. IV Lopressor. Certainly could add in some digoxin if necessary. She is not a candidate for oral anticoagulants at this time given her comorbidities. cc: MD Merrick Lindsey MD
[2018-12-15] MEDS ORDERED: PROTONIX PO SCH (07:00)
[2018-12-15] MEDS ORDERED: LASIX IV SCH (09:00)
[2018-12-15] MEDS ORDERED: SOLU-MEDROL IV SCH (09:00)
--- NOTE | 2018-12-21 06:07 | DISCHARGE SUMMARY ---
ADMISSION DATE: 12/01/2018 DISCHARGE DATE: 12/14/2018 ADMITTING DIAGNOSES: 1. Acute hypoxemic respiratory failure. 2. Chronic obstructive pulmonary disease. 3. Rheumatoid arthritis. 4. Metastatic breast cancer to the lung. IMAGING AND LABORATORY DATA IN THE HOSPITAL: Her white count stayed up starting from admission, it was around 29.87 and it stayed about 20,000. INR was 1.03. Arterial blood gases were done on many occasions and she had hypoxia along with CO2 retention. Her chemistry revealed electrolytes were almost normal. BUN was 32, creatinine was 0.5. Urinalysis was unremarkable. Vancomycin levels were done. Urine Legionella antigen was negative. Chest x-ray revealed pulmonary edema as well as bilateral infiltrates. CT scan of the chest and abdomen revealed the presence of a new right hepatic lesion with bilateral pleural effusion and bilateral atelectasis versus pneumonia. Mild anasarca was also noted. She also had an echocardiogram. Pulmonary arteriogram was also done. Pulmonary arteriogram revealed multiple right rib fractures, large right-sided pleural effusion, small left-sided effusion, cardiomegaly. No evidence of pulmonary emboli was noted. COURSE IN THE HOSPITAL: She was treated with IV Lasix. She was admitted to the ICU and was on the ventilator. She stayed on the ventilator for several days and was placed on IV antibiotics. Pulmonary consult, Cardiology consult was made. She was seen by Dr. Steele. She was extubated. She did well for about several days after extubation, slowly improved, and then suddenly she went into, again, respiratory distress. Family at that time decided about not going for any further codes, as she was initially coded in the emergency room and had multiple rib fractures. They decided about handing her over to hospice care, and [facility] started taking care of her. FINAL DIAGNOSES: 1. Acute respiratory failure, with bilateral pneumonia. 2. Bilateral pleural effusion, with congestive heart failure. 3. Metastatic breast cancer to the lung and to the liver. 4. Rheumatoid arthritis. 5. Severe chronic obstructive pulmonary disease. DISPOSITION: She was transferred to hospice care. cc: Merrick Becerril MD
== END 2018-12-14 19:45 | disposition hospice, inpatient (51) | DRG 871 ==
LOC: SUPCPDRO → ED 05:47 → ICU 09:57 → 3S 12-11 06:11
PROVIDERS: ADMIT Internal Medicine; ATTEND Internal Medicine
CPT/HCPCS: 71010; 71045; 71250; 71275; 74000; 74018; 74176; 80048; 80053; 80202; 81001; 82550; 82805; 82948; 83605; 83735; 83880; 84100; 84145; 84484; 85025; 85610; 85730; 87040; 87449; 87899; 93005; 93010; 93306; 93970; 94002; 94003; 94640; 94660; 94761; 96365; 96366; 96368; 96375; 97110; 97162; 97530; 99285; 99291; A9270; C9113; J0171; J0330; J0360; J0692; J1630; J1940; J1956; J2060; J2270; J2370; J2543; J2920; J2930; J3370; J3480; J7030; J7040; J7050; J7070; J7506; J7512; Q9967; S0164; XXXXX

== ENCOUNTER 2018-12-14 19:46 | Inpatient (IN) ==
[2018-12-14] MEDS ORDERED: SALINE LOCK IV FLUID XX ONE (21:57)
[2018-12-14] MEDS: MORPHINE IV PRN (22:11)
[2018-12-14] MEDS ORDERED: ATROPINE 1 % OPHTH SOLN SL PRN (22:22)
[2018-12-14] MEDS: TRANSDERM-SCOP TD SCH (22:22)
[2018-12-14] MEDS ORDERED: TYLENOL PR PRN (22:23)
[2018-12-14] MEDS: LASIX IV SCH (23:34)
[2018-12-14] MEDS: APRESOLINE IV SCH (23:34)
[2018-12-15] MEDS: MORPHINE IV PRN ×12 (00:11→22:02)
[2018-12-15] MEDS ORDERED: ATIVAN IV PRN (01:17)
[2018-12-15] MEDS: APRESOLINE IV SCH ×6 (02:39→20:56)
[2018-12-15] MEDS: ATIVAN IV PRN (07:48)
[2018-12-15] MEDS: DUONEB (A & A) INH PRN ×6 (07:53→23:20)
[2018-12-15] MEDS: LIDODERM TOP SCH (08:41)
[2018-12-15] MEDS: LASIX IV SCH (08:41)
[2018-12-15] MEDS: HALDOL IV PRN ×5 (13:31→22:02)
--- NOTE | 2018-12-15 20:15 | PROGRESS NOTE ---
DATE: 12/15/2018 SUBJECTIVE: A 73-year-old white female has been admitted to the [facility] under the care of Dr. Becerril and [facility]. I had a phone call yesterday and we added on scopolamine patch. Interval history was reviewed. The patient has been on BiPAP, awake. Family was at bedside. PAST MEDICAL HISTORY: Reviewed. PAST SURGICAL HISTORY: Reviewed. MEDICATIONS: Reviewed. ALLERGIES: Naprosyn. OBJECTIVE: On examination, the patient has been on BiPAP tachycardic. Oxygenation as well. On physical exam the patient is lying in the bed. Family is at bedside, holding the hands. No obvious neurological deficits. ASSESSMENT AND PLAN: 1. A 73-year-old white female basically with diagnosis of recurrent lung cancer, status post radiation; underlying chronic obstructive pulmonary disease; congestive heart failure, under the care of Dr. Kelley and Dr. Becerril, transferred to the [facility] for general inpatient care. Family wants comfort care. She is on bilevel positive airway pressure. 2. Atropine drops, Lasix as needed, lorazepam, morphine, scopolamine patch. Continue present palliative services. We will follow up. cc: MD Merrick Sevilla MD
[2018-12-16] MEDS: MORPHINE IV PRN ×12 (00:03→23:02)
[2018-12-16] MEDS: HALDOL IV PRN ×12 (00:03→23:02)
[2018-12-16] MEDS: DUONEB (A & A) INH PRN ×6 (03:44→23:56)
[2018-12-16] MEDS: APRESOLINE IV SCH ×5 (04:52→17:29)
[2018-12-16] MEDS: LIDODERM TOP SCH (08:16)
[2018-12-16] MEDS: LASIX IV SCH (08:16)
[2018-12-16] MEDS: ATIVAN IV PRN ×3 (09:35→21:51)
--- NOTE | 2018-12-16 14:45 | PROGRESS NOTE ---
DATE: 12/16/2018 SUBJECTIVE: The patient has been transferred out of [facility] to the 3rd floor. Family is at bedside. On GIP care under [facility]. The patient is on BiPAP and family wants to keep it. She is obtunded. OBJECTIVE: Vital Signs: Vitals as listed on the chart. Exam: Physical exam no change. ASSESSMENT AND PLAN: A 73-year-old white female basically with recurrent lung cancer, COPD under BiPAP and basically continue on palliative care waiting for demise. Supportive care. Family is agreeable. Living will, DNR and Dr. Becerril is going to follow up in the morning. cc: MD Merrick Sevilla MD
[2018-12-17] MEDS: MORPHINE IV PRN ×12 (01:01→23:03)
[2018-12-17] MEDS: HALDOL IV PRN ×12 (01:02→23:03)
[2018-12-17] MEDS: DUONEB (A & A) INH PRN ×2 (07:43→20:55)
[2018-12-17] MEDS: LASIX IV SCH (08:48)
[2018-12-17] MEDS: LIDODERM TOP SCH (08:49)
[2018-12-17] MEDS: ATIVAN IV PRN (11:23)
[2018-12-17] MEDS ORDERED: ATIVAN IV PRN (13:30)
--- NOTE | 2018-12-17 14:49 | PROGRESS NOTE ---
DATE: 12/17/2018 SUBJECTIVE: Ms. Jones is stuporous. She is on BiPAP respirations. Family decided about hospice, and she is only on comfort measures. We are going to continue with the current management on her, trying to keep her comfortable. -2 cc: Merrick Becerril MD
[2018-12-17 20:29] VITALS: BP 96/45
[2018-12-17] MEDS: TRANSDERM-SCOP TD SCH (21:09)
[2018-12-18] MEDS: MORPHINE IV PRN ×3 (01:20→05:38)
[2018-12-18] MEDS: HALDOL IV PRN ×3 (01:20→05:37)
--- NOTE | 2018-12-18 08:59 | PROGRESS NOTE ---
DATE: 12/18/2018 SUBJECTIVE: I saw her around 7:58 and she was not breathing. Heart stopped. Her pupils dilated and fixed. Patient . We are going to send her to home. cc: Merrick Becerril MD
--- NOTE | 2018-12-18 09:38 | DISCHARGE SUMMARY ---
ADMISSION DATE: 12/14/2018 DISCHARGE DATE: 12/18/2018 DATE OF EXPIRATION: The patient on 12/18/2018. HISTORY: Ms. Jones is a 73-year-old white female with a known case of COPD with acute respiratory failure. She had metastatic carcinoma of the breast to the right lung and to the liver. She also had severe rheumatoid arthritis. She was clearly kept on BiPAP, and she was only on comfort measures. This morning her heart stopped and she . FINAL DIAGNOSES: 1. Acute respiratory failure. 2. Metastatic cancer from the breast. cc: Merrick Becerril MD
== END 2018-12-18 07:58 | disposition expired | DRG 189 ==
LOC: 3S 21:47 → 3N 12-15 17:42
PROVIDERS: ADMIT Internal Medicine; ATTEND Internal Medicine
CPT/HCPCS: 94640; 94660; 94761; A9270; J1630; J1940; J2060; J2270